=== PATIENT | female | born 1945 | race Caucasian/White ===

== ENCOUNTER 2017-05-24 19:59 | Inpatient (IN) | payer MEDICARE, OTHER ==
[~2017-05-24] VITALS: Ht 167.6 cm; Wt 92.3 kg
--- NOTE | ~2017-05-24 | PR ---
[place], [place] PROGRESS NOTE NAME: ZAHIDA MCKEON UNIT #: [id number] ROOM: 519 DOCTOR: SHAYLA BAER MD BIRTHDATE: [birth year] DOS: 05/26/2017 CARDIOLOGY PROGRESS NOTE. SUBJECTIVE: The patient was seen in the Cardiology Department today 05/26/2017 prior to her stress test. She is a 71-year-old woman without any previous history of heart disease who noted a rapid heart rate while shopping at [employer]. She stated that she felt weak, dyspneic and lightheaded, but did not have any chest pain or syncope. The symptoms lasted several hours and therefore, she came to the Emergency Room. Her initial electrocardiogram showed SVT in a pattern consistent with AV oswaldo reentrant tachycardia. She did convert spontaneously to sinus rhythm. Troponin levels were minimally elevated suggesting myocardial injury, probably due to the tachycardia and demand ischemia. The patient denies any chest discomfort at this time and feels back to her baseline. PHYSICAL EXAMINATION: VITAL SIGNS: Today, her pulse is 66 and regular, blood pressure is 131/96. She is afebrile. NECK: Supple. She has no jugular distention. Carotids are full. She has no neck or supraclavicular masses and no thyromegaly. LUNGS: Respirations are unlabored. Her chest is clear to auscultation and percussion. She has no presacral edema or chest wall tenderness. HEART: Has a regular rhythm. She has a fourth heart sound, but no third heart sound or murmur. The PMI is not displaced. ABDOMEN: Benign. EXTREMITIES: Showed no edema. LABORATORY DATA: Her electrocardiogram today shows sinus rhythm with nonspecific T-wave flattening and lateral T-wave inversions. IMPRESSION: 1. 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 2. Mild elevation in troponin. PLAN: The patient will undergo echocardiography for wall motion and valve function today along with a pharmacologic stress test. Further recommendations will depend upon the results of these studies. She will be maintained on beta blockers for the time being and follow up with us in the office if her stress and echo are normal. We will plan on referring her to electrophysiology if her episodes of SVT are recurrent. We thank the hospitalist physicians for asking our advice regarding her care. [place], [place] PROGRESS NOTE NAME: ZAHIDA MCKEON UNIT #: [id number] ROOM: 519 DOCTOR: SHAYLA BAER MD BIRTHDATE: [birth year] SHAYLA BAER MD CM:PNTRANS 1114 1150 SHAYLA BAER MD 05/26/17 1150 interface
[~2017-05-24 19:59] MED LIST: ZOFRAN ODT4 MG SL
[2017-05-24 20:11] VITALS: BP 142/96
[2017-05-24 20:17] LABS: BASO % 0.4 % (0.0-1.0); EOS # 0.1 10*3/uL (0.0-0.4); EOS % 1.4 % (1.0-4.0); HEMATOCRIT 45.3 % (37.0-47.0); HEMOGLOBIN 15.2 g/dl (12.0-16.0); LYMPH # 2.8 10*3/uL (1.3-4.4); LYMPH % 27.5 % (27.0-41.0); MEAN CELL VOLUME 93.4 fl (81.0-99.0); MEAN CORPUSCULAR HGB 31.3 pg (27.0-31.0); MEAN CORPUSCULAR HGB CONC 33.6 g/dl (33.0-37.0); MEAN PLATELET VOLUME 9.1 fl (9.6-12.3); MONO # 1.3 10*3/uL (0.1-1.0); NEUT # 5.8 10*3/uL (2.3-7.9); NEUT % 57.4 % (47.0-73.0); PLATELET COUNT AUTOMATED 283 10*3/uL (130-400); RED BLOOD COUNT 4.85 10*6/uL (4.10-5.10); RED CELL DISTRI WIDTH 13.2 % (0-14.5); WHITE BLOOD COUNT 10.1 10*3/uL (4.8-10.8)
[2017-05-24 20:27] VITALS: BP 144/101
[2017-05-24 20:28] LABS: ACT PARTIAL THROMBO TIME 25.5 SECONDS (20.8-31.5)
[2017-05-24 20:33] LABS: ALBUMIN 3.7 gm/dl (3.1-4.5); ALKALINE PHOSPHATASE 91 U/L (45-117); BUN 11 mg/dl (7-24); CHLORIDE 100 mmol/L (98-107); CREATININE 1.04 mg/dL (0.55-1.02); POTASSIUM 3.6 mmol/L (3.5-5.1); SGOT/AST 19 IU/L (3-35); SGPT/ALT 24 U/L (12-78); SODIUM 137 mmol/L (136-145); TOTAL PROTEIN 8.1 gm/dL (6.4-8.2)
[2017-05-24 20:36] LABS: TROPONIN I 0.153 ng/ml (<0.045)
[2017-05-24 20:42] VITALS: BP 128/80
[2017-05-24 21:01] VITALS: BP 138/82
[2017-05-24 21:21] VITALS: BP 139/84
[2017-05-24 21:50] VITALS: BP 150/85
[2017-05-24] MEDS ORDERED: PRILOSEC20 M1 PO (22:10)
[2017-05-24] MEDS ORDERED: LIPITOR20 MG PO (22:11)
[2017-05-24] MEDS ORDERED: VITAMIN D31000 UNI1 PO (22:12)
[2017-05-24] MEDS ORDERED: CELEBREX100 MG PO (22:13)
[2017-05-24] MEDS ORDERED: VITAMIN B-125000 MC1 PO (22:13)
[2017-05-24] MEDS ORDERED: VALSARTAN-HCTZ1 EACH PO (22:14)
[2017-05-24] MEDS ORDERED: ASPIRIN ADULT L81 M1 PO (22:15)
--- NOTE | 2017-05-24 22:15 | NUR ---
CONSULT CALLED TO DR GR.
[2017-05-24] MEDS ORDERED: NORVASC5 MG PO (22:16)
[2017-05-24] MEDS ORDERED: AMITRIPTYLINE50 MG PO (22:16)
[2017-05-24] MEDS ORDERED: TRAZODONE50 MG PO (22:17)
[2017-05-24] MEDS ORDERED: ATIVAN1 MG PO (22:18)
[2017-05-24] MEDS ORDERED: PROVENTIL HFA6.7 GM INH (22:20)
[2017-05-24] MEDS ORDERED: MURO OPH (22:27)
[2017-05-24] MEDS ORDERED: [UNRECOGNIZED DRUG - OTHER] OPH (22:27)
--- NOTE | 2017-05-24 23:25 | NUR ---
CRITICAL TROPONIN OF 0.[address] GR. STATES "I WILL SEE HER IN AM, CALL IF YOU NEED ME."
[2017-05-25] VITALS (9 sets, daily range): BP systolic 110–134; BP diastolic 54–88
--- NOTE | 2017-05-25 00:10 | NUR ---
A 71, admitted to , under the services of BETO Mathew DO with a diagnosis of A FIB WITH SVT AND RVR. Chief complaint is HEART PALPITATIONS. Patient arrived via stretcher from ER. Monitor applied. Initial assessment completed. Vital signs taken and recorded. BETO MATHEW DO notified of admission to the unit. Orders received. See assessment for past medical history, medications and allergies. Patient and/or family oriented to unit. [facility] visitation policy reviewed. Clothing/patient valuable form completed. JUAN HERNANDEZ
--- NOTE | 2017-05-25 03:10 | NUR ---
DR GR ANSWERING SERVICE CALLED TO REPORT CRITICAL TROPONIN OF 0.161. TROPONINS ARE TRENDING DOWN.
[2017-05-25 06:05] LABS: BASO # 0.1 10*3/uL (0.0-0.1); BASO % 0.7 % (0.0-1.0); EOS # 0.2 10*3/uL (0.0-0.4); EOS % 2.1 % (1.0-4.0); HEMATOCRIT 42.7 % (37.0-47.0); HEMOGLOBIN 14.5 g/dl (12.0-16.0); LYMPH # 2.2 10*3/uL (1.3-4.4); LYMPH % 28.9 % (27.0-41.0); MEAN CELL VOLUME 94.3 fl (81.0-99.0); MEAN PLATELET VOLUME 9.2 fl (9.6-12.3); MONO % 13.7 % (3.0-9.0); NEUT # 4.1 10*3/uL (2.3-7.9); NEUT % 54.5 % (47.0-73.0); PLATELET COUNT AUTOMATED 261 10*3/uL (130-400); RED BLOOD COUNT 4.53 10*6/uL (4.10-5.10); RED CELL DISTRI WIDTH 13.2 % (0-14.5); WHITE BLOOD COUNT 7.6 10*3/uL (4.8-10.8)
[2017-05-25 06:22] LABS: ALBUMIN 3.2 gm/dl (3.1-4.5); ALKALINE PHOSPHATASE 67 U/L (45-117); BUN 11 mg/dl (7-24); CHLORIDE 106 mmol/L (98-107); CHOLESTEROL 153 mg/dL (<200); CPK 78 U/L (26-192); CREATININE 0.95 mg/dL (0.55-1.02); HDL CHOLESTEROL 56 mg/dl (40-60); LDH 157 U/L (84-246); LDL CHOLESTEROL 66 mg/dL (9-159); POTASSIUM 3.8 mmol/L (3.5-5.1); SGOT/AST 18 IU/L (3-35); SGPT/ALT 20 U/L (12-78); SODIUM 142 mmol/L (136-145); TOTAL PROTEIN 6.7 gm/dL (6.4-8.2); TRIGLYCERIDES 157 mg/dl (<150); VLDL CHOLESTEROL 31 mg/dL (6-40)
--- NOTE | 2017-05-25 06:36 | NUR ---
CRITICAL TROPONIN CALLED TO DR GROVE ANSWERING SERVICE. LEVEL TRENDING DOWN 0.14.
--- NOTE | 2017-05-25 06:52 | NUR ---
PT CONVERTED TO NORMAL SINUS, HR 67 BPM.
--- NOTE | 2017-05-25 07:37 | NUR ---
PT CONVERTED TO NORMAL SINUS, CARDIZEM DRIP DISCONTINUED.
--- NOTE | 2017-05-25 08:00 | NUR ---
CARDIZEM WAS DISCONTINUED AT O7OO D/T PATIENT CARDIOVERTING AT 0652. PATIENT ALERT AND ORIENTED. LUNGS CLEAR BUT DIMINISHED. RESP. THERAPY PLACED PATIENT ON O2 IN AM, WAS REPORTED THAT SPO2 HAD DROPPED TO 89%. PATIENT WITH HARSH COUGH, STATES IS A SMOKER.
--- NOTE | 2017-05-25 16:26 | NUR ---
PATIENT RESTING WITH NO DISTRESS.
--- NOTE | 2017-05-25 19:30 | NUR ---
PT AWAKE IN BED. NO C/O VOICED AT THIS TIME. CALL LIGHT IN REACH.
[2017-05-26] VITALS: BP 112/66
--- NOTE | 2017-05-26 06:25 | NUR ---
24 HR chart check completed.
[2017-05-26 06:52] LABS: BUN 12 mg/dl (7-24); CHLORIDE 105 mmol/L (98-107); CREATININE 1.07 mg/dL (0.55-1.02); POTASSIUM 4.1 mmol/L (3.5-5.1); SODIUM 140 mmol/L (136-145)
[2017-05-26 08:00] VITALS: BP 131/96
--- NOTE | 2017-05-26 08:40 | NUR ---
PATIENT GOING TO XRAY FOR LEXISCAN. PATIENT HAS BEEN NPO. VOICES NO COMPLAINTS, DENIES CHEST PAIN, DENIES SHORTNESS OF BREATH.
--- NOTE | 2017-05-26 08:40 | NUR ---
PATIENT LYING FLAT IN BED THIS AM, SPO2 89%, AFTER SITTING UP SPO2 INCREASED TO 91% ON ROOM AIR. PATIENT WITHOUT COMPLAINTS, NO SHORTNESS OF BREATH VOICED. ALERT AND ORIENTED.
--- NOTE | 2017-05-26 09:00 | NUR ---
Acquisition Professional in to talk to patient. Patient states lives at home with family. There are few steps in the home. Physician: sammy aguirre Pharmacy: [facility] services: none Patient's level of ADLs: INDEPENDENT Patient has working utilities: all working DME: none Follow-up physician's appointment after d/c: will be made by hospitalist nurse director upon discharge Does patient want to access PORTAL?: no Discharge plan discussed with patient, patient lives at home with family, she states she is independent in adls and ambulation, patient states she will be going home when able and denies any home needs. AMANDA CHAVARRIA
--- NOTE | 2017-05-26 10:59 | NUR ---
[facility] NOT AVAILABLE FOR ECHO. SHE IS OFF THE FLOOR FOR OTHER TESTING.
--- NOTE | 2017-05-26 11:15 | NUR ---
INFORMED CONSENT SIGNED FOR LEXISCAN STRESS TEST WITH DR. BAER. RESTING EKG NSR, HR 73, BP 132/80. PULSE OX 91% AND BREATH SOUNDS DEMINISHED BILATERALLY. COMPLETED ONE MINUTE OF LEXISCAN PROTOCOL RECEIVING LEXISCAN 0.4MG OVER 10 SECONDS. NO ARRHYTHMIAS OR ST CHANGES NOTED. PT C/O NAUSEA. LAST RECOVERY HR 91, BP 140/72. WAITING NUCLEAR SCANNING IN STABLE CONDITION.
[2017-05-26 12:00] VITALS: BP 146/74
--- NOTE | 2017-05-26 13:29 | NUR ---
RETURNED TO THE FLOOR AT 1250. NO PROBLEMS NOTED. VOICES NO PROBLEMS.
[2017-05-26 16:00] VITALS: BP 128/61
[2017-05-26] MEDS ORDERED: METOPROLOL SUCC25 M2 PO (16:33)
[2017-05-26] MEDS ORDERED: XARE20MG PO (17:29)
--- NOTE | 2017-05-26 18:13 | NUR ---
Discharge instructions reviewed with patient/family. Patient receptive and verbalizes understanding. Follow-up care arranged. Written instructions given to patient/family. Removed telementry pack. Removed iv site and bandaged. Patient ambulated off floor with son. MARY GR
== END 2017-05-26 18:13 | disposition home or self-care (01) | DRG 309 ==
LOC: ED 19:59 → EDHOLD 20:53 → 5E 20:53
PROVIDERS: Emergency Medicine Emergency Medical Services; Internal Medicine; ADMIT Internal Medicine
PROC: 3E073KZ Introduction of Other Diagnostic Substance into Coronary Artery, Percutaneous Approach (ICD-10-PCS; principal; 2017-05-26)
PROC: 4A02XM4 Measurement of Cardiac Total Activity, External Approach (ICD-10-PCS; principal; 2017-05-26)
DX: I48.91 Unspecified atrial fibrillation (principal); E44.1 Mild protein-calorie malnutrition; E11.9 Type 2 diabetes mellitus without complications; F41.9 Anxiety disorder, unspecified; F32.9 Major depressive disorder, single episode, unspecified; I47.1 Supraventricular tachycardia; E66.09 Other obesity due to excess calories; E78.5 Hyperlipidemia, unspecified; I10 Essential (primary) hypertension; Z72.0 Tobacco use; Z71.6 Tobacco abuse counseling; Z98.51 Tubal ligation status; Z80.9 Family history of malignant neoplasm, unspecified; Z81.1 Family history of alcohol abuse and dependence; Z79.82 Long term (current) use of aspirin; Z79.899 Other long term (current) drug therapy; Z68.32 Body mass index [BMI] 32.0-32.9, adult

== ENCOUNTER 2017-06-21 13:56 | Inpatient (IN) | payer MEDICARE, OTHER ==
[~2017-06-21] VITALS: Ht 165.1 cm; Wt 94.9 kg
--- NOTE | ~2017-06-21 | O ---
[place], [place] OPERATIVE NOTE NAME: ZAHIDA MCKEON UNIT #: [id number] ROOM: 407 DOCTOR: MAURICE SWIFTTREMAINE BIRTHDATE: [birth year] DOS: INDICATIONS: A 72-year-old patient who has presented with chief complaint of epigastric distress, shortness of breath, aggressive smoker. She had a chest x-ray done, was demonstrating bilateral pleural effusion, prominence of interstitial pattern. Her lactic acid 1.1. CBC: H and H of 11 and 35. INR 1.1. Comprehensive metabolic panel, electrolytes balanced. Lipase 71. BNP of 1500+. Troponin within normal limits. Comprehensive metabolic panel again reassessed. The patient has had a CT scan done with the concern about thickening of the distal esophagus. I have been asked for ____. PAST MEDICAL HISTORY: Anxiety, atrial fibrillation, diabetes mellitus, heaviest smoker, dependency on nicotine, depression, obesity, SVT. PAST SURGICAL HISTORY: Tubal ligation. SOCIAL HISTORY: Heavy smoker. Nonalcohol consumer. FAMILY HISTORY: Noncontributory. ALLERGIES: To no known medication. MEDICATIONS: List has been reviewed. PROCEDURE: Today's procedure part of investigation is panendoscopy plus biopsy. PREMEDICATION: Versed and Diprivan. SCOPE: Olympus forward-viewing gastroscope Q10 video. REPORT: After putting the patient in the left lateral position and after application of lubricant to the scope, the scope was introduced. Thereafter, under direct visualization, I advanced through the length of esophagus without difficulty. Gastric pouch was entered. Gastritis was seen. Small hiatal hernia was noticed. There was no acute pathology at distal esophagus. Gastric pouch was entered. Gastritis seen. Antrum was biopsied, ruling out H. pylori. Duodenal bulb, second and third part within normal limits. The patient extubated, tolerated procedure well. IMPRESSION: Hiatal hernia, gastritis, status post biopsy. PLAN AND DISCUSSION: Awaiting H. pylori results. This patient benefits from chronic PPI management. Hopefully, her H. pylori is going to be negative and at that stage chronic suppression with 20 mg of omeprazole daily would be sufficient. Thank you very much indeed. [place], [place] OPERATIVE NOTE NAME: ZAHIDA MCKEON UNIT #: [id number] ROOM: 407 DOCTOR: TREMAINE RICHARDS MD BIRTHDATE: [birth year] TREMAINE RICHARDS MD CM:OPRECORD:OPERATIVE NOTE [id number] TREMAINE RICHARDS MD 06/25/17 1607 interface
--- NOTE | ~2017-06-21 | EKG ---
[place], [place] ELECTROCARDIOGRAM REPORT NAME: ZAHIDA MCKEON UNIT #: [id number] ROOM: 407 DOCTOR: TEE KENNEY MD BIRTHDATE: [birth year] DOS: 06/21/2017 TIME: 1435 hours. Sinus bradycardia at 55 beats per minute. Flattened T-waves in chest leads. An abnormal ECG. No previous tracing is available for comparison. TEE KENNEY MD CM:EKGRPT:ELECTROCARDIOGRAM REPORT 1706 21 TEE KENNEY MD
--- NOTE | ~2017-06-21 | PR ---
[place], [place] PROGRESS NOTE NAME: ZAHIDA MCKEON UNIT #: [id number] ROOM: 407 DOCTOR: PAULA WALTERS MD,JULIA BIRTHDATE: [birth year] DOS: 06/26/2017 SUBJECTIVE: The patient was seen and examined on 06/26/2017. She is comfortably resting in the bed. She denies any symptoms of chest pain or any abdominal pain. She denies any symptoms of coughing or any sputum expectoration. OBJECTIVE: VITAL SIGNS: For the patient which was recorded showed the temperature noted normal, respiratory rate of 16 morning. Heart rate 62, blood pressure 149/65. Pulse oxygen saturation of the patient was noted on room air as 92% saturation to 98% on 2 L nasal cannula. HEENT: Examination shows no acute change. NECK: Supple. CARDIOVASCULAR: S1, S2 audible. LUNGS: The patient was noted without any wheezing or crackles at this time. Resolution of the crackles was noted that was present previously. LABORATORY DATA: The patient has an EGD completed, which shows evidence of hiatal hernia. There was no mass lesion or other abnormality described in the esophagus. IMPRESSION: The patient who has been currently noted with reduction of progressive resolution of the acute symptom noted with resolving chronic obstructive pulmonary disease, acute tracheobronchitis ____ abnormality in the thoracic area. Possibility of lymph node enlargement need to be further assessed with the PET scan. Await biopsy, which was taken by Dr. Lucio for the patient of the stomach. PLAN OF TREATMENT: The patient could be discharged home today and recommended to be followed up in the office for further assessment if she decides to do so. JULIA MITCHELL MD CM:PNTRANS 1109 [id number] JULIA WALTERS MD 06/27/17 0435 interface
--- NOTE | ~2017-06-21 | CON ---
[place], [place] REPORT OF CONSULTATION NAME: ZAHIDA MCKEON UNIT #: [id number] ROOM: 407 DOCTOR: JULIA MAST MD BIRTHDATE: [birth year] DOS: 06/24/2017 The patient's consultation was requested by hospitalist services for assessment of symptom of shortness of breath and others. HISTORY OF PRESENT ILLNESS: The patient is a 72-year-old white female who has been admitted to the hospitalist services on 06/21/2017. The patient presented to the Emergency Room, she has reported symptoms of shortness breath, which has been generally noted to gradually worsen in the past 1 week. The symptoms of shortness of breath occurring with moderate exertion activities. Improves with rest. She also developed symptoms of coughing with small amount of sputum expectoration and wheezing intermittently. She denies symptoms of chest pain. Denies symptoms of hemoptysis. The patient has been admitted to the hospital noted with atrial fibrillation with rapid ventricular response as well on admission, which has been treated. REVIEW OF SYSTEMS: CONSTITUTIONAL: Fatigue and tiredness noted without symptoms of fever or chills. EYES: Denies any burning, redness, or tenderness. EARS, NOSE, THROAT SYMPTOMS: No sore throat, hoarseness, otalgia, postnasal drainage. CARDIOVASCULAR: Denies anginal pain, edema or pain of the lower extremities. GASTROINTESTINAL: Denies dysphagia, nausea, vomiting, diarrhea, abdominal pain, hematemesis, melena, or hematochezia. SKIN: Denies any lesions or rashes. CENTRAL NERVOUS SYSTEM: Denies dizziness, headache, diplopia, syncopal episodes or any focal neurologic deficit. The remaining systems were reviewed with the patient, they were noted all negative. PAST MEDICAL HISTORY: The patient was noted with history of: 1. COPD. 2. Atrial fibrillation, which is noted paroxysmal. 3. History of depression. 4. History of SVT. 5. Hyperlipidemia. 6. Essential hypertension. 7. Obesity. 8. Type 2 diabetes mellitus. PAST SURGICAL HISTORY: Reported history of tubal ligation. SOCIAL HISTORY: The patient is . She has 2 children noted. Active tobacco use since teenager, 1 pack of cigarettes per day until hospitalization. Denies any occupational related pulmonary exposure. FAMILY HISTORY: Father with complication of unknown cancer, he was 69 years old. Mother of ____ complication, 56 years old related to chronic alcoholism. [place], [place] REPORT OF CONSULTATION NAME: ZAHIDA MCKEON UNIT #: [id number] ROOM: 407 DOCTOR: JULIA MAST MD BIRTHDATE: [birth year] CURRENT HOME MEDICATIONS: Which were listed on this admission were noted as use of: 1. Xarelto 20 mg daily. 2. Metoprolol succinate 25 mg daily. 3. Vitamin D 1000 international units daily. 4. Aspirin 81 mg p.o. daily. 5. Omeprazole 20 mg daily. 6. Trazodone 50 mg at bedtime. 7. Amitriptyline 50 mg at bedtime. 8. Lipitor 20 mg at bedtime. 9. Solu-Medrol 40 mg q.8 hours. 10. Mucinex 1200 mg p.o. b.i.d. 11. Nicotine replacement patch 21 picogram apply to the skin daily. 12. DuoNeb q.4 hours. 13. IV Levaquin. 14. Other p.r.n. medications administered as well. DRUG ALLERGIES HISTORY: Noted no known drug allergies. PHYSICAL EXAMINATION: GENERAL: This is a 72-year-old female currently noted awake and alert without any distress, moderate nonproductive cough noted at time of the assessment. VITAL SIGNS: Height of 5 feet 6 inches, weight 209 pounds, BMI 34.8. Normal temperature since admission, respiratory rate 18-16, heart rate 60-76, blood pressure 142/67 to 134/61. Intake for the patient is 1000 mL over 1700, negative for 6 and 40 mL. Pulse ox saturation on room air 91-92% saturation recorded on 2 liters nasal cannula oxygen supplementation. HEENT: Moderate obesity. Head was atraumatic. Eyes nonicterus. Decreased posterior pharyngeal space with high tongue base and crowding of soft tissue structures. ABDOMEN: Soft, nontender. Bowel sounds present. CENTRAL NERVOUS SYSTEM: The patient was noted without any gross focal deficit. EXTREMITIES: The patient's cranial nerves 2-12 intact. MUSCULOSKELETAL: Does not show any acute deformities. SKIN: Showed no lesions or rashes. LABORATORY DATA: CBC on admission of 06/21/2017, hemoglobin 11.6, hematocrit 35.0. CBC normal. Lactic acid 1.1 on 06/21/2017. PT/PTT on 06/21/2017 were normal. CMP of the patient 06/21/2017, normal BUN and creatinine noted and other labs. Lipase was 71. Troponin was noted as normal. CBC on 06/22/2017, mild anemia, otherwise remains normal. CMP: Glucose elevated at 197, normal BUN and creatinine. The blood culture from 06/21/2017 was noted without any bacterial growth. CBC of 06/24/2017; WBC count 12.2, hemoglobin 11.3, hematocrit 34.4, platelet count 314,000 with 82% segmented neutrophils with noted differential. BMP: BUN 12, creatinine 1.09, glucose 152. Remaining electrolytes were normal. Review of the radiology data for this patient personally done from the faxed images. The chest x-ray of 06/21/2017 shows a small area of atelectasis in the [place], [place] REPORT OF CONSULTATION NAME: ZAHIDA MCKEON UNIT #: [id number] ROOM: [facility] DOCTOR: PAULA WALTERS MD,[facility] BIRTHDATE: [birth year] right lower lobe. Remaining lungs were noted clear with hyperinflation. Chest x-ray ____ repeated shows similar finding. CT scan of 06/23/2017 without contrast for review shows area of atelectasis was noted, most marked in the right lower lobe. There was no mediastinal lymphadenopathy noted. Irregular, soft and ____ lesions were noted in the medial portion of the diaphragm abutting the descending aorta as well as the vertebral body. Size described at 1.7 x 1.6 cm. Some thickening of the lower portion of the esophagus was also noted with possibility of malignant process with lymph node enlargement could be considered. IMPRESSION: 1. The patient who has been currently admitted to the hospital noted with ongoing acute exacerbation of chronic obstructive pulmonary disease, acute tracheobronchitis with area of atelectasis related to some mucus infection was suspected. 2. History of chronic obesity, suspicion of obstructive sleep apnea disorder. 3. Mild leucocytosis related to the use of corticosteroids. 4. Rule out any malignant process in lower portion of the esophagus with the direct endoscopic examination. 5. History of chronic nicotine dependence as well. 6. Very mild anemia, most likely chronic disease. PLAN OF TREATMENT: Continuation of current Mucinex, bronchodilators, oxygen supplementation and the flutter valve. The symptom remains persistent and does not resolve, certainly therapeutic bronchoscopy will be considered. Strong recommendation to get the GI consultation for the direct visualization of the esophagus to rule out any malignancy. If examined and noted to be negative, certainly PET scan needs to be done as an outpatient for further assessment. Other supportive plan of therapy care and management as ongoing. Continue bronchodilators with increased frequency every 4 hours. Thanks for allowing me to participate in the care of this patient. JULIA MITCHELL MD CM:CONSTR:REPORT OF CONSULTATION 1205 06/24/17 1621 interface
--- NOTE | ~2017-06-21 | PR ---
[place], [place] PROGRESS NOTE NAME: ZAHIDA MCKEON UNIT #: [id number] ROOM: 407 DOCTOR: JULIA MAST MD BIRTHDATE: [birth year] DOS: 06/25/2017 SUBJECTIVE: She has been comfortably resting on the bed with improvement in shortness breath was noted. Not used the BiPAP. The oxygen supplementation used by the patient. Symptoms of chest pain, stating that she has ambulated with physical therapy yesterday. OBJECTIVE: VITAL SIGNS: The patient this morning showed normal temperature, respiratory rate 20, heart rate of 83, blood pressure 163/83. Pulse oxygen saturation on room air was recorded 92% saturation. HEENT: No acute change. NECK: Supple. CARDIOVASCULAR: S1, S2 audible. LUNGS: Noted with questionable crackles, no wheezing. ABDOMEN: Soft, nontender. LABORATORY DATA: CBC: Mild anemia, otherwise normal CBC. BMP: BUN of 24, creatinine 1.06. IMPRESSION: 1. The patient was currently noted with improvement in acute exacerbation of COPD and acute tracheobronchitis progressively cough has been noted for this patient, which is mild to moderate with reduction noted gradually. 2. Abnormal ____ which has been noted for the patient lymph node or other in the lower esophagus area as well as in the midline. PLAN OF TREATMENT: Continuation of the patient on current therapy from the pulmonary standpoint, no changes in treatment need to be made. The patient has been improving current therapy. GI consultation. The patient has been already ordered for the patient for the EGD to rule out any malignant process of the lower portion of the esophagus. Outpatient PET scan would be considered for the patient to assess the current nodular density noted in the midline for the patient in the left descending aorta, periaortic area on the right side. [place], [place] PROGRESS NOTE NAME: ZAHIDA MCKEON UNIT #: [id number] ROOM: 407 DOCTOR: JULIA MAST MD BIRTHDATE: [birth year] JULIA MITCHELL MD CM:PNTRANS 1112 JULIA WALTERS MD 06/25/178 interface
[~2017-06-21 13:56] MED LIST changes: +AMITRIPTYLINE50 MG PO; +ASPIRIN ADULT L81 M1 PO; +ATIVAN1 MG PO; +CELEBREX100 MG PO; +LIPITOR20 MG PO; +METOPROLOL SUCC25 M2 PO; +MURO OPH; +NORVASC5 MG PO; +PRILOSEC20 M1 PO; +PROVENTIL HFA6.7 GM INH; +TRAZODONE50 MG PO; +VALSARTAN-HCTZ1 EACH PO; +VITAMIN B-125000 MC1 PO; +VITAMIN D31000 UNI1 PO; +XARE20MG PO; +[UNRECOGNIZED DRUG - OTHER] OPH
[2017-06-21 14:12] VITALS: BP 172/135
[2017-06-21 14:34] LABS: BASO % 0.5 % (0.0-1.0); EOS # 0.1 10*3/uL (0.0-0.4); EOS % 1.6 % (1.0-4.0); HEMOGLOBIN 11.6 g/dl (12.0-16.0); LYMPH # 1.6 10*3/uL (1.3-4.4); LYMPH % 27.9 % (27.0-41.0); MEAN CELL VOLUME 96.4 fl (81.0-99.0); MEAN CORPUSCULAR HGB CONC 33.1 g/dl (33.0-37.0); MEAN PLATELET VOLUME 8.8 fl (9.6-12.3); MONO # 0.7 10*3/uL (0.1-1.0); MONO % 12.6 % (3.0-9.0); NEUT # 3.3 10*3/uL (2.3-7.9); PLATELET COUNT AUTOMATED 244 10*3/uL (130-400); RED BLOOD COUNT 3.63 10*6/uL (4.10-5.10); RED CELL DISTRI WIDTH 12.8 % (0-14.5); WHITE BLOOD COUNT 5.7 10*3/uL (4.8-10.8)
[2017-06-21 14:35] VITALS: BP 162/79
[2017-06-21 14:45] LABS: ACT PARTIAL THROMBO TIME 29.5 SECONDS (20.8-31.5); INTERNATIONAL NORM RATIO 1.1 (2.0-3.5)
[2017-06-21 14:49] LABS: ALBUMIN 3.1 gm/dl (3.1-4.5); ALKALINE PHOSPHATASE 79 U/L (45-117); BUN 11 mg/dl (7-24); CHLORIDE 103 mmol/L (98-107); CREATININE 0.98 mg/dL (0.55-1.02); LIPASE 71 U/L (73-393); MAGNESIUM 1.8 mg/dL (1.5-2.1); POTASSIUM 4.3 mmol/L (3.5-5.1); SGOT/AST 20 IU/L (3-35); SGPT/ALT 34 U/L (12-78); SODIUM 138 mmol/L (136-145); TOTAL PROTEIN 6.8 gm/dL (6.4-8.2)
[2017-06-21 14:50] LABS: TROPONIN I < 0.015 ng/ml (<0.045)
[2017-06-21 15:10] VITALS: BP 160/66
[2017-06-21 16:25] VITALS: BP 178/73
[2017-06-21 17:08] VITALS: BP 169/87
--- NOTE | 2017-06-21 17:12 | NUR ---
CCAA 72, admitted to , under the services of ELMO Trujillo DO with a diagnosis of PNEUMONIA. Chief complaint is SOB. Patient arrived via bed from ER. Monitor applied. Initial assessment completed. Vital signs taken and recorded. ELMO TRUJILLO DO notified of admission to the unit. Orders received. See assessment for past medical history, medications and allergies. Patient and/or family oriented to unit. [facility] visitation policy reviewed. Clothing/patient valuable form completed. RAMBO SKINNER
--- NOTE | 2017-06-21 17:29 | NUR ---
MEDICATION LIST UPDATED FROM PATIENT RX BOTTLES AND PHARMACY LIST. NOTIFIED PHYSICIAN MEDICATION LIST UPDATED
[2017-06-21 18:05] LABS: BILIRUBIN NEGATIVE (NEGATIVE); BLOOD NEGATIVE (NEGATIVE); CLARITY CLEAR (CLEAR); COLOR YELLOW (YELLOW); GLUCOSE NEGATIVE (NEGATIVE); KETONE NEGATIVE (NEGATIVE); LEUKO ESTERASE NEGATIVE (NEGATIVE); NITRITE NEGATIVE (NEGATIVE); PH 5.5 (5.0-9.0); SPECIFIC GRAVITY <= 1.005 (1.005-1.030); UROBILINOGEN 0.2 E.U./dl (0.2-1.0)
[2017-06-21 18:11] LABS: BACTERIA TRACE; RBC 0-2 rbc/hpf (0-2); WBC 0-2 wbc/hpf (0-5)
[2017-06-21 18:37] LABS: TROPONIN I < 0.015 ng/ml (<0.045)
--- NOTE | 2017-06-21 18:43 | NUR ---
SPOKE TO DR. VANEGAS AND HE STATED TO HOLD SCHEDULED IV LASIX DOSE SINCE PATIENT ALREADY RECEIVED A ONE TIME 20MG DOSE RECENTLY.
[2017-06-21 20:00] VITALS: BP 162/86
[2017-06-22] VITALS: BP 140/68
--- NOTE | 2017-06-22 03:15 | NUR ---
MEDICATED WITH PRN TYLENOL ORDERED FOR C/O A HEADACHE.
--- NOTE | 2017-06-22 04:20 | NUR ---
EARLIER TYLENOL EFFECTIVE PER PATIENT. RESTING COMFORTABLY IN BED. RESPIRATIONS EASY/REGULAR. NO SXS OF DISTRESS. CALL LIGHT IS IN REACH.
[2017-06-22 06:01] LABS: BASO % 0.2 % (0.0-1.0); HEMATOCRIT 32.3 % (37.0-47.0); HEMOGLOBIN 10.8 g/dl (12.0-16.0); LYMPH # 0.7 10*3/uL (1.3-4.4); LYMPH % 11.6 % (27.0-41.0); MEAN CELL VOLUME 95.6 fl (81.0-99.0); MEAN CORPUSCULAR HGB CONC 33.4 g/dl (33.0-37.0); MEAN PLATELET VOLUME 9.5 fl (9.6-12.3); MONO # 0.2 10*3/uL (0.1-1.0); MONO % 2.5 % (3.0-9.0); NEUT # 5.4 10*3/uL (2.3-7.9); NEUT % 84.9 % (47.0-73.0); PLATELET COUNT AUTOMATED 238 10*3/uL (130-400); RED BLOOD COUNT 3.38 10*6/uL (4.10-5.10); RED CELL DISTRI WIDTH 12.7 % (0-14.5); WHITE BLOOD COUNT 6.3 10*3/uL (4.8-10.8)
[2017-06-22 06:25] LABS: ALBUMIN 2.9 gm/dl (3.1-4.5); ALKALINE PHOSPHATASE 64 U/L (45-117); BUN 17 mg/dl (7-24); CHLORIDE 104 mmol/L (98-107); CHOLESTEROL 119 mg/dL (<200); CREATININE 1.04 mg/dL (0.55-1.02); HDL CHOLESTEROL 56 mg/dl (40-60); LDL CHOLESTEROL 55 mg/dL (9-159); MAGNESIUM 1.7 mg/dL (1.5-2.1); PHOSPHOROUS 3.4 mg/dL (2.5-4.9); SGOT/AST 15 IU/L (3-35); SGPT/ALT 27 U/L (12-78); SODIUM 140 mmol/L (136-145); TOTAL PROTEIN 6.2 gm/dL (6.4-8.2); TRIGLYCERIDES 39 mg/dl (<150); VLDL CHOLESTEROL 8 mg/dL (6-40)
[2017-06-22 06:27] LABS: INTERNATIONAL NORM RATIO 1.1 (2.0-3.5)
[2017-06-22 08:00] VITALS: BP 160/73
--- NOTE | 2017-06-22 09:53 | NUR ---
talkled to pharmecy about eye oitment that was due at 1000 today, but pharmacy made aware the fact that it wont be here until tomorrow. will continue to monitor pt.
[2017-06-22 12:00] VITALS: BP 154/68
[2017-06-22 16:00] VITALS: BP 151/72
--- NOTE | 2017-06-22 19:45 | NUR ---
PT. IS COMFORTABLY RESTING IN BE AT THIS PRESENT TIME WATCHING TV. HOB IS ELEVATED AND OXYGEN IS ON VIA NASAL CANNULA. CALL LIGHT IS IN REACH, SEE SHIFT ASSESSMENT.
[2017-06-22 20:00] VITALS: BP 159/84
[2017-06-23] VITALS: BP 134/61
--- NOTE | 2017-06-23 01:46 | NUR ---
24 HR chart check completed.
[2017-06-23 06:31] LABS: BASO % 0.1 % (0.0-1.0); HEMATOCRIT 35.7 % (37.0-47.0); HEMOGLOBIN 11.8 g/dl (12.0-16.0); LYMPH # 1.3 10*3/uL (1.3-4.4); LYMPH % 9.5 % (27.0-41.0); MEAN CELL VOLUME 96.2 fl (81.0-99.0); MEAN CORPUSCULAR HGB 31.8 pg (27.0-31.0); MEAN CORPUSCULAR HGB CONC 33.1 g/dl (33.0-37.0); MEAN PLATELET VOLUME 9.6 fl (9.6-12.3); MONO # 0.6 10*3/uL (0.1-1.0); MONO % 4.7 % (3.0-9.0); NEUT # 11.6 10*3/uL (2.3-7.9); PLATELET COUNT AUTOMATED 304 10*3/uL (130-400); RED BLOOD COUNT 3.71 10*6/uL (4.10-5.10); WHITE BLOOD COUNT 13.7 10*3/uL (4.8-10.8)
[2017-06-23 07:01] LABS: BUN 19 mg/dl (7-24); CHLORIDE 104 mmol/L (98-107); CREATININE 0.99 mg/dL (0.55-1.02); SODIUM 140 mmol/L (136-145)
--- NOTE | 2017-06-23 07:55 | NUR ---
Alert and oriented x3. Lungs diminished with fine rales noted to left base. Notified by Ana Rosa respiratory therapist that pt reported SOB after returning from having xray this am. Ana Rosa states that pox was 90% on RA at that time. Pt states she does feel sob with exertion. NSR on monitor with few PAC's noted, rate 70-80's. Denies pain at this time. Dry cough per pt.
[2017-06-23 08:00] VITALS: BP 150/78
--- NOTE | 2017-06-23 08:30 | NUR ---
Court Specialist in to talk to patient. Patient states lives at HOME with HER GRANDCHILDREN. There are 12 steps in the home. Physician: CHHAYA AHN Pharmacy: [facility] Home health services: NONE Patient's level of ADLs: MINIMAL ASSIST Patient has working utilities: YES DME: NONE Follow-up physician's appointment after d/c: WILL BE MADE PRIOR TO DC Does patient want to access PORTAL?: Discharge plan HOME. JOVITA SAHU
[2017-06-23 12:00] VITALS: BP 153/75
--- NOTE | 2017-06-23 13:25 | NUR ---
PHYSICAL THERAPY PT eval done on 4E this afternoon. Low complexity eval due to chart review, pt interview and results of eval. No need foound for ongoing PT at this time. Encouraged frequent walking about halls to help with lung expansion. See eval for more details. Bia Hull, PT
[2017-06-23 16:00] VITALS: BP 138/71
--- NOTE | 2017-06-23 17:50 | NUR ---
DR. MITCHELL NOTIFIED OF CONSULT.
[2017-06-23 20:00] VITALS: BP 152/67
--- NOTE | 2017-06-23 22:41 | NUR ---
PT. IS RESTING COMFORTABLY AT THIS TIME, RESPIRATIONS ARE EASY AND REGULAR. HOB ELEVATED AND CALL LIGHT IN REACH, SEE SHIFT ASSESSMENT.
[2017-06-24] VITALS: BP 143/67
[2017-06-24 06:21] LABS: BASO % 0.1 % (0.0-1.0); HEMATOCRIT 34.4 % (37.0-47.0); HEMOGLOBIN 11.3 g/dl (12.0-16.0); LYMPH # 1.4 10*3/uL (1.3-4.4); LYMPH % 11.2 % (27.0-41.0); MEAN CELL VOLUME 96.4 fl (81.0-99.0); MEAN CORPUSCULAR HGB 31.7 pg (27.0-31.0); MEAN CORPUSCULAR HGB CONC 32.8 g/dl (33.0-37.0); MEAN PLATELET VOLUME 9.5 fl (9.6-12.3); MONO # 0.6 10*3/uL (0.1-1.0); MONO % 5.3 % (3.0-9.0); NEUT # 10.1 10*3/uL (2.3-7.9); NEUT % 82.7 % (47.0-73.0); PLATELET COUNT AUTOMATED 314 10*3/uL (130-400); RED BLOOD COUNT 3.57 10*6/uL (4.10-5.10); RED CELL DISTRI WIDTH 12.9 % (0-14.5); WHITE BLOOD COUNT 12.2 10*3/uL (4.8-10.8)
[2017-06-24 06:43] LABS: CREATININE 1.09 mg/dL (0.55-1.02); POTASSIUM 4.5 mmol/L (3.5-5.1)
[2017-06-24 08:00] VITALS: BP 152/74
[2017-06-24 12:00] VITALS: BP 165/70
--- NOTE | 2017-06-24 13:00 | NUR ---
PULSE OX ON R/A AT REST 92%. B/P PRIOR TO TEST WAS 153/81, HEART RATE 72. PT. AMBULATED ON R/A, PULSE OX DECREASING TO 88%, O2 PLACED ON 2L, SAT 89% WITH AMBULATION, INCREASED O2 TO 3LM, SAT INCREASING TO 94%, HEART RATE 85. CONTINUED TO AMBULATE PT ON 3L, SAT MAINTAINING 94%. PT. TOLERATED WALK WELL. B/P POST AMBULATION WAS 164/78, HEART RATE 70. RECOVERY PULSE OX 96% AT REST ON R/A. DR. COLLINS AND RN NOTIFIED.
[2017-06-24 16:00] VITALS: BP 162/76
[2017-06-24 20:00] VITALS: BP 129/60
[2017-06-25] VITALS (9 sets, daily range): BP systolic 133–178; BP diastolic 60–98
[2017-06-25 06:18] LABS: BUN 24 mg/dl (7-24); CHLORIDE 103 mmol/L (98-107); CREATININE 1.06 mg/dL (0.55-1.02); POTASSIUM 4.5 mmol/L (3.5-5.1); SODIUM 142 mmol/L (136-145)
[2017-06-25 06:27] LABS: HEMATOCRIT 35.2 % (37.0-47.0); HEMOGLOBIN 11.2 g/dl (12.0-16.0); LYMPH # 1.3 10*3/uL (1.3-4.4); LYMPH % 13.9 % (27.0-41.0); MEAN CELL VOLUME 97.5 fl (81.0-99.0); MEAN CORPUSCULAR HGB CONC 31.8 g/dl (33.0-37.0); MEAN PLATELET VOLUME 9.9 fl (9.6-12.3); MONO # 0.8 10*3/uL (0.1-1.0); MONO % 8.2 % (3.0-9.0); NEUT # 7.1 10*3/uL (2.3-7.9); NEUT % 77.5 % (47.0-73.0); PLATELET COUNT AUTOMATED 298 10*3/uL (130-400); RED BLOOD COUNT 3.61 10*6/uL (4.10-5.10); RED CELL DISTRI WIDTH 12.9 % (0-14.5); WHITE BLOOD COUNT 9.2 10*3/uL (4.8-10.8)
--- NOTE | 2017-06-25 08:55 | NUR ---
INFORMED HOSPITALISTS RN ABOUT PT QUALIFYING FOR HOME O2 AND NEEDING ORDER.
--- NOTE | 2017-06-25 16:56 | NUR ---
CALLED AND T/O REGULAR DIET FOR PATIENT. NO OTHER COCNERNS FROM THE .
[2017-06-26] VITALS: BP 145/76
--- NOTE | 2017-06-26 02:42 | NUR ---
PATIENT RESTING IN BED WITH EYES CLOSED. NO S/S OF DISTRESS. RESPS EASY AND REGULAR. BED IN LOWEST POSITION, CALL LIGHT IN REACH
--- NOTE | 2017-06-26 02:54 | NUR ---
24 HR chart check completed.
[2017-06-26 06:51] LABS: HEMATOCRIT 35.1 % (37.0-47.0); HEMOGLOBIN 11.4 g/dl (12.0-16.0); LYMPH # 1.3 10*3/uL (1.3-4.4); LYMPH % 15.2 % (27.0-41.0); MEAN CELL VOLUME 95.6 fl (81.0-99.0); MEAN CORPUSCULAR HGB 31.1 pg (27.0-31.0); MEAN CORPUSCULAR HGB CONC 32.5 g/dl (33.0-37.0); MEAN PLATELET VOLUME 9.6 fl (9.6-12.3); MONO # 0.6 10*3/uL (0.1-1.0); MONO % 7.3 % (3.0-9.0); NEUT # 6.4 10*3/uL (2.3-7.9); NEUT % 76.8 % (47.0-73.0); PLATELET COUNT AUTOMATED 287 10*3/uL (130-400); RED BLOOD COUNT 3.67 10*6/uL (4.10-5.10); RED CELL DISTRI WIDTH 12.8 % (0-14.5); WHITE BLOOD COUNT 8.3 10*3/uL (4.8-10.8)
[2017-06-26 07:14] LABS: ALBUMIN 2.7 gm/dl (3.1-4.5); ALKALINE PHOSPHATASE 58 U/L (45-117); BUN 23 mg/dl (7-24); CHLORIDE 101 mmol/L (98-107); POTASSIUM 4.8 mmol/L (3.5-5.1); SGOT/AST 15 IU/L (3-35); SGPT/ALT 24 U/L (12-78); SODIUM 139 mmol/L (136-145)
[2017-06-26 07:15] LABS: TOTAL PROTEIN 5.9 gm/dL (6.4-8.2)
[2017-06-26 08:00] VITALS: BP 149/65
--- NOTE | 2017-06-26 08:20 | NUR ---
PT RESTING IN BED, NO DISTRESS NOTED. NO VOICED C/O, WILL MONITOR. CALL LIGHT WITHIN REACH
[2017-06-26 12:00] VITALS: BP 152/78
[2017-06-26] MEDS ORDERED: PREDNISONE10 MG PO (13:04)
--- NOTE | 2017-06-26 15:20 | NUR ---
Discharge instructions reviewed with patient/family. Patient receptive and verbalizes understanding. Follow-up care arranged. Written instructions given to patient/family. TADEO CINTRON
--- NOTE | 2017-06-26 16:40 | NUR ---
[facility] WAS CALLED FOR O2 SUPPLY. O2 WAS DELIVERED, PT. DISCHARGED.
== END 2017-06-26 15:20 | disposition home or self-care (01) | DRG 291 ==
LOC: ED 13:56 → 4E 15:55 → EDHOLD 15:55 → 4E 16:14
PROVIDERS: Family Medicine; Hospitalist; Internal Medicine; Nurse Practitioner Family; ADMIT Internal Medicine
PROC: 0DB68ZX Excision of Stomach, Via Natural or Artificial Opening Endoscopic, Diagnostic (ICD-10-PCS; principal; 2017-06-25)
DX: I11.0 Hypertensive heart disease with heart failure (principal); J96.01 Acute respiratory failure with hypoxia; J15.6 Pneumonia due to other Gram-negative bacteria; E44.0 Moderate protein-calorie malnutrition; I48.0 Paroxysmal atrial fibrillation; D64.9 Anemia, unspecified; J44.0 Chronic obstructive pulmonary disease with (acute) lower respiratory infection; J44.1 Chronic obstructive pulmonary disease with (acute) exacerbation; I50.31 Acute diastolic (congestive) heart failure; E78.5 Hyperlipidemia, unspecified; F32.9 Major depressive disorder, single episode, unspecified; E66.09 Other obesity due to excess calories; K29.70 Gastritis, unspecified, without bleeding; K20.9 Esophagitis, unspecified; F17.210 Nicotine dependence, cigarettes, uncomplicated; F41.9 Anxiety disorder, unspecified; K44.9 Diaphragmatic hernia without obstruction or gangrene; Z71.6 Tobacco abuse counseling; Z68.34 Body mass index [BMI] 34.0-34.9, adult; Z98.51 Tubal ligation status; Z81.1 Family history of alcohol abuse and dependence; Z80.9 Family history of malignant neoplasm, unspecified; Z79.82 Long term (current) use of aspirin; Z79.899 Other long term (current) drug therapy

== ENCOUNTER 2017-07-20 07:24 | Emergency (ER) | payer MEDICARE, OTHER ==
[~2017-07-20] VITALS: Ht 167.6 cm; Wt 97.1 kg
--- NOTE | ~2017-07-20 | EKG ---
[place], [place] ELECTROCARDIOGRAM REPORT NAME: ZAHIDA MCKEON UNIT #: [id number] ROOM: DOCTOR: PAULA WALTERS MD,JULIA BIRTHDATE: [birth year] DOS: 07/20/2017 ELECTROCARDIOGRAM The testing was done for the patient on 07/20/2017 at 7:51 a.m. The testing was done for assessment of shortness of breath. Normal sinus rhythm noted. Heart rate is 70 beats per minute. There were no changes of acute ischemia. There were no cardiac arrhythmias. JULIA MITCHELL MD CM:EKGRPT:ELECTROCARDIOGRAM REPORT [id number] 1514 JULIA WALTERS MD
[~2017-07-20 07:24] MED LIST changes: +PREDNISONE10 MG PO
[2017-07-20 07:48] LABS: BASO % 0.3 % (0.0-1.0); EOS # 0.1 10*3/uL (0.0-0.4); EOS % 1.9 % (1.0-4.0); HEMATOCRIT 31.5 % (37.0-47.0); HEMOGLOBIN 9.9 g/dl (12.0-16.0); LYMPH # 2.8 10*3/uL (1.3-4.4); LYMPH % 40.1 % (27.0-41.0); MEAN CELL VOLUME 96.3 fl (81.0-99.0); MEAN CORPUSCULAR HGB 30.3 pg (27.0-31.0); MEAN CORPUSCULAR HGB CONC 31.4 g/dl (33.0-37.0); MEAN PLATELET VOLUME 8.7 fl (9.6-12.3); MONO # 0.7 10*3/uL (0.1-1.0); MONO % 9.6 % (3.0-9.0); NEUT # 3.3 10*3/uL (2.3-7.9); PLATELET COUNT AUTOMATED 229 10*3/uL (130-400); RED BLOOD COUNT 3.27 10*6/uL (4.10-5.10); RED CELL DISTRI WIDTH 12.9 % (0-14.5)
[2017-07-20 08:05] LABS: ALBUMIN 2.9 gm/dl (3.1-4.5); ALKALINE PHOSPHATASE 88 U/L (45-117); BUN 13 mg/dl (7-24); CHLORIDE 104 mmol/L (98-107); CREATININE 0.84 mg/dL (0.55-1.02); POTASSIUM 4.1 mmol/L (3.5-5.1); SGOT/AST 17 IU/L (3-35); SGPT/ALT 20 U/L (12-78); SODIUM 141 mmol/L (136-145); TOTAL PROTEIN 6.4 gm/dL (6.4-8.2)
[2017-07-20 08:32] VITALS: BP 153/81
[2017-07-20] MEDS ORDERED: PREDNISONE20 M1 PO (09:31)
== END 2017-07-20 10:29 | disposition home or self-care (01) ==
LOC: ED 07:24
PROVIDERS: Emergency Medicine
DX: J44.1 Chronic obstructive pulmonary disease with (acute) exacerbation (principal); F32.9 Major depressive disorder, single episode, unspecified; F41.9 Anxiety disorder, unspecified; I10 Essential (primary) hypertension; E78.5 Hyperlipidemia, unspecified; I48.0 Paroxysmal atrial fibrillation; Z98.51 Tubal ligation status; Z79.899 Other long term (current) drug therapy; Z79.82 Long term (current) use of aspirin

== ENCOUNTER 2017-08-17 19:29 | Inpatient (IN) | payer MEDICARE, OTHER ==
[~2017-08-17] VITALS: Ht 167.6 cm; Wt 92.8 kg
--- NOTE | ~2017-08-17 | PR ---
[place], [place] PROGRESS NOTE NAME: ZAHIDA MCKEON UNIT #: [id number] ROOM: 529 DOCTOR: PAULA WALTERS MD,JULIA BIRTHDATE: [birth year] DOS: 08/20/2017 SUBJECTIVE: She has been noted reduction of the respiratory symptoms in the last 24 hours including wheezing, shortness of breath and cough. Cough has been still noted mild to moderately with some sputum expectoration at time. OBJECTIVE: VITAL SIGNS: Normal temperature, respiratory rate 18, heart rate 83, blood pressure 136/60. The pulse oxygen saturation on 2 liters, 97% saturation. HEENT: No acute change. NECK: Supple. CARDIOVASCULAR: S1, S2 audible. LUNGS: Moderate decreased breath sounds with mild to moderate expiratory wheezing, decreased from previous examination. ABDOMEN: Soft and obese. EXTREMITIES: Without any edema. LABORATORY DATA: CBC: Hemoglobin 8.8, hematocrit 26.6, WBC count and platelet count were normal. CMP, normal BUN and creatinine, CO2 36. IMPRESSION: The patient with improving acute exacerbation of chronic obstructive pulmonary disease with acute tracheobronchitis with current medical management, gradually. Reduction in respiratory symptom was noted in the last 24 hours. PLAN OF MANAGEMENT: Reduce the Solu-Medrol to 40 mg b.i.d. for this patient at this time. Ambulation was encouraged. Continue other treatment including bronchodilators. Usual care, other supportive plan of therapy and care. JULIA MITCHELL MD CM:PNTRANS [phone] JULIA WALTERS MD 08/20/17 1301 interface
--- NOTE | ~2017-08-17 | CON ---
[place], [place] REPORT OF CONSULTATION NAME: ZAHIDA MCKEON UNIT #: [id number] ROOM: 529 DOCTOR: TREMAINE RICHARDS MD BIRTHDATE: [birth year] DOS: 08/22/2017 HISTORY OF PRESENT ILLNESS: A 72-year-old patient who presented with multiple medical problems, among which has been extreme shortness of breath, exacerbation of COPD, anemia with H and H of 88 and 28. Lactic acid 1.3. INR of 1.0, comprehensive metabolic panel, electrolyte balance, liver function test normal. CBC differential was repeatedly readdressed. Total iron binding is low 16, reticulocyte count was 2.0. Blood cultures negative. Comprehensive metabolic panel repeatedly readdressed. Liver function tests are normal. PAST MEDICAL HISTORY: Associated with obesity, depression, COPD, active smoker, hyperlipidemia, hypertension, diabetes mellitus. SOCIAL HISTORY: Active smoker, nonalcohol consumer. FAMILY HISTORY: Noncontributory. MEDICATIONS: List has been reviewed including aspirin and Xarelto, which could have played a role in her anemia, on the other hand, omeprazole is on board. ALLERGIES: No known medication. REVIEW OF SYSTEMS: HEENT: Denies double vision, blurred vision. RESPIRATORY: Admits to shortness of breath. CARDIOVASCULAR: Denies chest pain. DIGESTIVE SYSTEM: No hematemesis, no hematochezia. PAST SURGICAL HISTORY: She has had a colonoscopy last year apparently elsewhere. PHYSICAL EXAMINATION: VITAL SIGNS: Stable. HEENT: Head normocephalic, nontraumatic. Mouth and buccal mucosa benign. NECK: Supple, no thyromegaly, no cervical lymphadenopathy. CHEST: Symmetric anatomy. LUNGS: COPD, diffuse wheezes anteroposteriorly noticed. HEART: Normal sinus rhythm, no gallop, no murmur. ABDOMEN: Soft, obese, large, no hepato-organomegaly can be elicited. EXTREMITIES: No cyanosis, no pedal edema. NEUROLOGIC: Alert and oriented to time, place, person. IMPRESSION: Chronic anemia, on Xarelto and aspirin, chronic obstructive pulmonary disease with exacerbation, obesity, obstructive sleep apnea. Other adjunctive diagnoses are hyperlipidemia and diabetes mellitus. PLAN AND DISCUSSION: We are going to stabilization of pulmonary status and as such, we are going to postpone investigation with the EGD. She is having a bronchoscopy today. Workup in progress. [place], [place] REPORT OF CONSULTATION NAME: ZAHIDA MCKEON UNIT #: [id number] ROOM: 529 DOCTOR: MAURICE SWIFT,TREMAINE BIRTHDATE: [birth year] TREMAINE RICHARDS MD CM:CONSTR:REPORT OF CONSULTATION 1150 08/22/17 1849 interface
--- NOTE | ~2017-08-17 | PR ---
[place], [place] PROGRESS NOTE NAME: ZAHIDA MCKEON UNIT #: [id number] ROOM: 529 DOCTOR: PAULA WALTERS MD,JULIA BIRTHDATE: [birth year] DOS: 08/23/2017 SUBJECTIVE: The patient has been noted comfortable at this time. Bronchoscopy done yesterday with the significant reduction in respiratory symptoms noted. Shortness of breath, coughing, wheezing all resolving. However, the resolution was noted incomplete. OBJECTIVE: VITAL SIGNS: This morning, normal temperature, respiratory rate 18, heart rate 86, blood pressure 150/76. Pulse oxygen saturation 3 liters nasal cannula 100% saturation. HEENT: Chronic obesity. NECK: Supple. CARDIOVASCULAR: S1, S2 is audible. LUNGS: The patient was noted without any wheeze or crackles at present time. Breaths are noted mild to moderate decreased. ABDOMEN: Soft, nontender. EXTREMITIES: Without edema. LABORATORY DATA: The culture of the bronchial washing shows normal karon, final culture results pending. Gram stain, moderate white blood cell, few epithelial cell, few gram-positive cocci in pairs and chains. IMPRESSION: Progressive resolution with acute exacerbation of chronic obstructive pulmonary disease, acute tracheobronchitis after bronchoscopy. The patient noted good enough of the patient at this time to be discharged home for further followup, management for the patient to be done as an outpatient. Tapering dose of prednisone. Continue abstinence tobacco use. Recommend the use of oxygen. JULIA MITCHELL MD CM:PNTRANS 1323 [id number] JULIA WALTERS MD 08/23/17 1339 interface
--- NOTE | ~2017-08-17 | PROC NOTE ---
[place], [place] PROCEDURE NOTE NAME: ZAHIDA MCKEON UNIT #: [id number] ROOM: 529 DOCTOR: PAULA WALTERS MD,JULIA BIRTHDATE: [birth year] DOS: 08/22/2017 PREOPERATIVE DIAGNOSES: The patient with persistent severe nonproductive cough, not resolved with maximal medical therapy, with wheezing. POSTOPERATIVE DIAGNOSES: Large plugs of mucus cleared off endobronchial tree bilaterally in subsegments. No endobronchial obstructive lesion. PROCEDURE DESCRIPTION: Informed consent obtained for the patient. The patient was placed in supine position. Administered conscious sedation. After achieving proper sedation, airway introduced into the mouth. Bronchoscope advanced through the airway into laryngeal area. Epiglottis was seen. Vocal cord was moving symmetrical, movements yellowish in color. Bronchoscope entered vocal cord and tracheal lumen. Tracheal lumen showed moderate amount of very thick mucoid secretion with small amount of purulent secretion, which was suctioned at sharita level. Large plugs of mucus were noted impacting almost all of the subsegments of right upper, right middle, right lower, left upper, lingula, and left lower lobe. All the bronchial mucus plugs were cleared with the help of normal saline wash and sent for culture. The procedure was well tolerated by the patient without any complications. Postoperative findings will be discussed with the patient once the patient recovered the effects of acute sedation. Based on the current bronchoscopy, no treatment changes were planned for today. Continue the patient's current other treatment as in progress. JULIA MITCHELL MD CM:PROCNOTE:PROCEDURE NOTE [id number] 1521 JULIA WALTERS MD
--- NOTE | ~2017-08-17 | CON ---
[place], [place] REPORT OF CONSULTATION NAME: ZAHIDA MCKEON UNIT #: [id number] ROOM: 529 DOCTOR: JULIA MAST MD BIRTHDATE: [birth year] DOS: 08/19/2017 Consultation requested by the hospitalist services. REASON FOR CONSULTATION: Assess the patient for ongoing respiratory symptoms with exacerbation of COPD. HISTORY OF PRESENT ILLNESS: This is a 72-year-old white female patient with past history of COPD, presented to the hospital. The patient is admitted to the hospital on 08/17/2017. The symptoms of shortness breath started associated coughing, increased chest congestion without any sputum expectoration about a week. The symptoms have been noted progressive, not responding. She was also noted progressive increased wheezing as well. She has been noted with acute exacerbation of chronic obstructive pulmonary disease at this time and has been managed for that problem. Denies symptoms of chest pain. Denies symptoms of hemoptysis. She stated minimal or no improvement in symptoms since hospitalization. REVIEW OF SYSTEMS: CONSTITUTIONAL SYMPTOMS: Continues to experience symptoms of tiredness, fatigue, does not report any symptoms of fever or chills. EYES: Denies any burning, redness, discharge, or dryness of the eyes. EARS, NOSE AND THROAT: No sore throat, hoarseness, otalgia, postnasal drainage or epistaxis. CARDIOVASCULAR: No anginal pain, edema, pain of the lower extremity, palpitation. GASTROINTESTINAL: Dysphagia, nausea, vomiting, diarrhea, abdominal pain, hematemesis, melena, or abnormal weight loss, history of chronic obesity. GENITOURINARY: No dysuria, suprapubic pain, hematuria. SKIN: No lesions or rashes. MUSCULOSKELETAL: No deformities or pain. CENTRAL NERVOUS SYSTEM: Denies dizziness, headache, diplopia, syncopal episodes, neurologic deficit or seizures. Remaining systems were reviewed. They were noted all negative. PAST MEDICAL HISTORY: Significant for last hospitalization: 1. In 06/2017, this hospital medical record review was for acute exacerbation of chronic obstructive pulmonary disease, acute tracheobronchitis. 2. Past history of atrial fibrillation with anticoagulation, which has been reported paroxysmal. 3. Chronic obstructive pulmonary disease. 4. Depression. 5. History of SVT. 6. Hyperlipidemia. 7. Essential hypertension. 8. Chronic obesity. 9. Type 2 diabetes mellitus. PAST SURGICAL HISTORY: Tubal ligation. [place], [place] REPORT OF CONSULTATION NAME: ZAHIDA MCKEON UNIT #: [id number] ROOM: 529 DOCTOR: JULIA MAST MD BIRTHDATE: [birth year] SOCIAL HISTORY: The patient is currently , has 2 children. Tobacco use was noted as a pack of cigarettes per day since teens and currently smoking about a half or less a pack of cigarettes per day. Denies history of alcohol use or any illicit drug use or denies any occupation related pulmonary exposure. FAMILY HISTORY: The patient's father with complication related to unknown cancer, he at the age of 6969 years old. Mother as well with complication related to chronic alcoholism at the age of 5656 years old. MEDICATIONS: The current administered medication were noted as use of ferrous sulfate, IV Solu-Medrol 60 mg b.i.d., aspirin, Xarelto, metoprolol succinate, vitamin D, omeprazole, trazodone, amitriptyline, Lipitor, Mucinex, azithromycin, lorazepam, Rocephin and other p.r.n. medications administration. DRUG ALLERGIES: The patient was noted as no known drug allergies. PHYSICAL EXAMINATION: GENERAL: A 72-year-old female who has been currently noted to be awake and alert without any acute distress, sitting on the bed. Height recorded on admission on 5 feet 6 inches, weight of 204 pounds, BMI 33. VITAL SIGNS: Normal temperature, respirations 18-20, heart rate of 93-91, blood pressure 114/67 132/63. Pulse oxygen saturation 3 liters canula 92% saturation. HEENT: Chronic obesity. Head was atraumatic. Eyes nonicterus. Decreased posterior pharyngeal space. CARDIOVASCULAR: S1, S2 is audible. LUNGS: The patient was noted with decreased breath sounds bilaterally with diffuse expiratory wheezing. There were no crackles. ABDOMEN: Soft, obese, nontender. EXTREMITIES: Without any edema, clubbing, cyanosis. Chronic obesity noted. Cranial nerves 2-12 intact. MUSCULOSKELETAL: No deformities. SKIN: Showed no lesions or rashes. LABORATORY DATA: Lactic acid on 08/17/2017 was normal at 1.3. CBC on 08/17/2017, hemoglobin 8.8, hematocrit of 28.2, WBC count normal, platelet count were normal. CMP of 08/17/2017, normal BUN and creatinine, CO2 of 35. Chest x-ray, 1 view, which was reviewed from faxed images of 08/17/2017. No acute pulmonary disease. Influenza rapid A and B, nasal washing antigen negative. Blood culture from the 3rd of this month showed no bacterial growth, final culture is pending. CBC this morning, WBC count 15.5, hemoglobin 8.9, hematocrit 29.1, platelet count 256,000. CMP, glucose 152. Normal BUN and creatinine. CO2 of 34. IMPRESSION: 1. The patient will be currently admitted to the hospital with continued nicotine dependence. The patient has history of chronic obstructive pulmonary disease presented to the hospital and has been treated for the patient at this time for acute exacerbation of chronic obstructive pulmonary disease, acute tracheobronchitis without much improvement in the last couple of days with current medical management. [place], [place] REPORT OF CONSULTATION NAME: ZAHIDA MCKEON UNIT #: [id number] ROOM: 529 DOCTOR: JULIA MAST MD BIRTHDATE: [birth year] 2. History of chronic severe obesity as well. 3. Anemia most likely chronic disease without any active gastrointestinal bleeding or other bleeding sources were known. 4. Possibility of obstructive sleep apnea disorder would be considered with current clinical assessment and physical examination. PLAN OF TREATMENT: Continue the use of the Solu-Medrol as previously ordered. The patient is getting anticoagulation with Xarelto for atrial fibrillation, remains well controlled. Mucinex was given 1200 mg b.i.d. and the flutter valve. Await for another 24-48 hours. If the symptom remains persistent without any response with current maximal medical management, consider therapeutic bronchoscopy to help clear mucus impaction, major airways. In the meantime, continue the patient other therapy, plan of management and care plan. Usual treatment with the addition treatment changes to be made based on the progression of illness. Supportive therapy, plan of management and care. Thank you for allowing me to participate in the care of this patient. JULIA MITCHELL MD CM:CONSTR:REPORT OF CONSULTATION 1326 08/19/17 1416 interface
--- NOTE | ~2017-08-17 | PR ---
[place], [place] PROGRESS NOTE [id number] UNIT #: [id number] ROOM: 529 DOCTOR: PAULA WALTERS MD,JULIA BIRTHDATE: [birth year] DOS: 08/21/2017 SUBJECTIVE: She has been doing well for the patient yesterday, but later on noted progressive worsening of the respiratory symptom with a severe episode of cough without any sputum expectoration, prior to that the patient had been noted to have moderate cough and expectorating sputum. Short of breath also occurred with the coughing episodes as well as wheezing and tightness in the chest. She denies any symptoms of hemoptysis. She has been continued all other previous treatment for the medical management of COPD without any major changes. OBJECTIVE: VITAL SIGNS: Recorded shows the temperature of the patient recorded as normal, respiratory rate of 18. This morning, heart rate 84, blood pressure 140/70, pulse oxygen saturation on 2.5 liters nasal cannula 98% saturation recorded. HEENT: Showed no acute change. NECK: Supple. CARDIOVASCULAR: S1, S2 audible. LUNGS: The patient noted with moderate expiratory wheezing without any crackles. ABDOMEN: Soft, nontender. EXTREMITIES: Without any edema, clubbing, or cyanosis. LABORATORY DATA: There were no labs rather done today. IMPRESSION: 1. The patient ____ respiratory symptom with increased coughing, which has been noted constantly not productive, patient episodic. 2. Acute exacerbation of chronic obstructive pulmonary disease with acute bronchitis as well. 3. History of chronic obesity as well. PLAN OF MANAGEMENT: The patient will be continued on current dose of corticosteroids, bronchodilators, Mucinex, and other treatments without any changes. The bronchoscopy would be done tomorrow morning for assessment of endobronchial tree to help clear the endobronchial secretions. The Xarelto will be held for today and to be resumed tomorrow after the bronchoscopy. This will minimize any bleeding. All other supportive plan of management and care. Usual therapy. Additional treatment changes will be made for this patient based on progression of the illness. Risk and benefits of the bronchoscopy has been discussed with the patient in detail. The patient accepted those and the procedure was scheduled for the morning. N.p.o. past midnight status will be achieved from midnight tonight as well. [place], [place] PROGRESS NOTE NAME: ZAHIDA MCKEON UNIT #: [id number] ROOM: 529 DOCTOR: JULIA MAST MD BIRTHDATE: [birth year] JULIA MITCHELL MD CM:MARIALUISA 1103 173 JULIA WALTERS MD 08/21/17 173 interface
--- NOTE | ~2017-08-17 | PR ---
[place], [place] PROGRESS NOTE NAME: ZAHIDA MCKEON UNIT #: [id number] ROOM: 529 DOCTOR: JULIA MAST MD BIRTHDATE: [birth year] DOS: 08/22/2017 SUBJECTIVE: She has been noted similar symptoms of significant severe cough, which has been noted episodic and not changed from yesterday. The patient with continued high dose intravenous Solu-Medrol and bronchodilators and other treatment. She was n.p.o. past midnight bronchoscopy which was planned for today. OBJECTIVE: VITAL SIGNS: For the patient this morning normal temperature, respiratory rate of 17, heart rate 80, blood pressure 149/79. The pulse oxygen saturation on 2 liters nasal cannula 95% saturation. HEENT: Chronic obesity. NECK: Supple. CARDIOVASCULAR: S1, S2 audible. LUNGS: The patient was noted with moderate decreased breath sounds with expiratory wheezing remains persistent. There were no crackles. ABDOMEN: Soft, obese, nontender. EXTREMITIES: No edema. LABORATORY DATA: CBC today, normal WBC count and platelet count, hemoglobin 9.5, hematocrit 29.3. CMP this morning, glucose 164, normal BUN and creatinine, CO2 33. IMPRESSION: 1. Persistent ongoing acute exacerbation of chronic obstructive pulmonary disease was noted with a severe nonproductive cough, which are noted episodic suspected mucus impaction of major airways. 2. Chronic metabolic alkalosis secondary to the chronic obstructive pulmonary disease as well. 3. Chronic obesity as well. PLAN OF TREATMENT: Continuation of the antibiotics. The patient is on Solu-Medrol at current dose. Continuation of the patient and flutter valve and other treatment. Proceed with the bronchoscopy. The Xarelto was placed on hold. The patient will probably be resumed after bronchoscopy if there would be no complications. All other supportive plan of therapy care and management. [place], [place] PROGRESS NOTE NAME: ZAHIDA MCKEON UNIT #: [id number] ROOM: 529 DOCTOR: JULIA MAST MD BIRTHDATE: [birth year] JULIA MITCHELL MD CM:PNTRANS 0946 1446 JULIA WALTERS MD 08/22/17 1447 interface
--- NOTE | ~2017-08-17 | EKG ---
[place], [place] ELECTROCARDIOGRAM REPORT NAME: ZAHIDA MCKEON UNIT #: [id number] ROOM: 529 DOCTOR: TEE KENNEY MD BIRTHDATE: [birth year] DOS: 08/17/2017 TIME: 2005 hours. FINDINGS: 1. Normal sinus rhythm at 64 beats per minute. 2. Nonspecific T-wave changes in anterior chest leads. 3. No previous tracing is available for comparison. TEE KENNEY MD CM:EKGRPT:ELECTROCARDIOGRAM REPORT 1714 1813 TEE KENNEY MD
[~2017-08-17 19:29] MED LIST changes: +PREDNISONE20 M1 PO
[2017-08-17 19:40] VITALS: BP 145/65
[2017-08-17 20:05] LABS: BASO % 0.6 % (0.0-1.0); EOS # 0.1 10*3/uL (0.0-0.4); EOS % 2.1 % (1.0-4.0); HEMATOCRIT 28.2 % (37.0-47.0); HEMOGLOBIN 8.8 g/dl (12.0-16.0); LYMPH # 1.9 10*3/uL (1.3-4.4); LYMPH % 36.8 % (27.0-41.0); MEAN CORPUSCULAR HGB 28.4 pg (27.0-31.0); MEAN CORPUSCULAR HGB CONC 31.2 g/dl (33.0-37.0); MEAN PLATELET VOLUME 8.7 fl (9.6-12.3); MONO # 0.7 10*3/uL (0.1-1.0); MONO % 13.3 % (3.0-9.0); NEUT # 2.5 10*3/uL (2.3-7.9); NEUT % 46.8 % (47.0-73.0); PLATELET COUNT AUTOMATED 282 10*3/uL (130-400); RED CELL DISTRI WIDTH 13.3 % (0-14.5); WHITE BLOOD COUNT 5.3 10*3/uL (4.8-10.8)
[2017-08-17 20:16] LABS: INTERNATIONAL NORM RATIO 1.1 (2.0-3.5)
[2017-08-17 20:24] LABS: ALBUMIN 3.3 gm/dl (3.1-4.5); ALKALINE PHOSPHATASE 78 U/L (45-117); BUN 7 mg/dl (7-24); CHLORIDE 103 mmol/L (98-107); CREATININE 0.73 mg/dL (0.55-1.02); POTASSIUM 3.5 mmol/L (3.5-5.1); SGOT/AST 13 IU/L (3-35); SGPT/ALT 17 U/L (12-78); SODIUM 142 mmol/L (136-145); TOTAL PROTEIN 6.7 gm/dL (6.4-8.2)
[2017-08-17 20:25] LABS: TROPONIN I < 0.015 ng/ml (<0.045)
[2017-08-17 21:51] VITALS: BP 159/71; BP 159/74
--- NOTE | 2017-08-17 22:22 | NUR ---
A 72, admitted to 5E, under the services of ELMO Trujillo DO with a diagnosis of COPD EXACERBATION, ANEMIA. Chief complaint is SOB WITH EXERTIONAL. Patient arrived via ambulatory from ER. Monitor applied. Initial assessment completed. Vital signs taken and recorded. ELMO TRUJILLO DO notified of admission to the unit. Orders received. See assessment for past medical history, medications and allergies. Patient and/or family oriented to unit. [facility] visitation policy reviewed. Clothing/patient valuable form completed. MARY GR
[2017-08-18] VITALS: BP 146/70
--- NOTE | 2017-08-18 03:36 | NUR ---
Resting quietly in bed. During midnight assessment stating feels much better. Denies pain or SOB at this time. Resp easy and regular.
[2017-08-18 06:24] LABS: BASO % 0.2 % (0.0-1.0); HEMATOCRIT 27.7 % (37.0-47.0); HEMOGLOBIN 8.5 g/dl (12.0-16.0); LYMPH % 18.8 % (27.0-41.0); MEAN CELL VOLUME 90.5 fl (81.0-99.0); MEAN CORPUSCULAR HGB 27.8 pg (27.0-31.0); MEAN CORPUSCULAR HGB CONC 30.7 g/dl (33.0-37.0); MEAN PLATELET VOLUME 9.5 fl (9.6-12.3); MONO # 0.1 10*3/uL (0.1-1.0); MONO % 1.4 % (3.0-9.0); NEUT % 78.8 % (47.0-73.0); PLATELET COUNT AUTOMATED 293 10*3/uL (130-400); RED BLOOD COUNT 3.06 10*6/uL (4.10-5.10); RED CELL DISTRI WIDTH 13.2 % (0-14.5); WHITE BLOOD COUNT 5.1 10*3/uL (4.8-10.8)
[2017-08-18 06:35] LABS: ALKALINE PHOSPHATASE 75 U/L (45-117); BUN 7 mg/dl (7-24); CHLORIDE 105 mmol/L (98-107); CHOLESTEROL 139 mg/dL (<200); CREATININE 0.67 mg/dL (0.55-1.02); HDL CHOLESTEROL 65 mg/dl (40-60); LDL CHOLESTEROL 65 mg/dL (9-159); PHOSPHOROUS 3.2 mg/dL (2.5-4.9); POTASSIUM 4.1 mmol/L (3.5-5.1); SGPT/ALT 15 U/L (12-78); SODIUM 141 mmol/L (136-145); TOTAL PROTEIN 6.5 gm/dL (6.4-8.2); TRIGLYCERIDES 47 mg/dl (<150); VLDL CHOLESTEROL 9 mg/dL (6-40)
[2017-08-18 06:40] LABS: FREE T4 1.03 ng/dl (0.76-1.46); SGOT/AST 14 IU/L (3-35); THYROID STIM HORMONE (HS) 0.683 uIU/ml (0.358-4.75)
[2017-08-18 06:44] LABS: INTERNATIONAL NORM RATIO 1.1 (2.0-3.5)
--- NOTE | 2017-08-18 07:39 | NUR ---
Shift chart check completed.
[2017-08-18 08:00] VITALS: BP 142/67
--- NOTE | 2017-08-18 08:30 | NUR ---
Hub Cutter Apprentice in to talk to patient. Patient states lives at HOME with HER GRANDCHILDREN. There are 12 steps in the home. Physician: JANET PA Pharmacy: [facility] Home health services: NONE Patient's level of ADLs: INDEPENDENT Patient has working utilities: YES DME: O2 [facility] Follow-up physician's appointment after d/c: WILL BE MADE PRIOR TO DC Does patient want to access PORTAL?: Discharge plan HOME. JOVITA SAHU
[2017-08-18 09:40] LABS: VITAMIN D, 25-HYDROXY 39.3 ng/mL (30-100)
[2017-08-18 12:00] VITALS: BP 151/64
--- NOTE | 2017-08-18 14:20 | NUR ---
STOPED IV FLUIDS PER ORDER PT COPLAINS OF SHORTNESS OF BREATH. CALLED FOR BREATHING TREATMENT. PT ABLET O SPEAK IN FULL SENTENCES, NO DISTRESES NOTED.
--- NOTE | 2017-08-18 14:25 | NUR ---
PT COMPLAINS OF GENERALIZED ACHE, TYLENOL GIVEN. SEE MAR. WILL MONITOR FOR EFFECTIVENESS
[2017-08-18 16:00] VITALS: BP 147/56
--- NOTE | 2017-08-18 17:46 | NUR ---
PT STATES IF ANY NEW RX ARE GIVEN THAT WILL BE REFILLS AND [facility] SHE PREFERS FOR THOSE TO BE SENT TO [facility]
[2017-08-18 20:00] VITALS: BP 156/77
[2017-08-19] VITALS: BP 132/63
--- NOTE | 2017-08-19 01:47 | NUR ---
PRN TYLENOL GIVEN FOR HEADACHE RATED 5/10. WILL EVALUATE FOR EFFECTIVENESS.
--- NOTE | 2017-08-19 02:19 | NUR ---
PAIN MEDICATION EFFECTIVE. PT RESTING EASILY. RESPIRATIONS REGULAR WITH NO DISTRESS NOTED.
[2017-08-19 07:00] LABS: IRON 16 ug/dL (50-170); TOTAL IRON BINDING CAPACITY 386 ug/dl (250-450)
[2017-08-19 07:08] LABS: RETICULOCYTE % 2.2 % (0.50-2.50)
[2017-08-19 07:18] LABS: FERRITIN 19.6 ng/mL (10.0-291.0)
--- NOTE | 2017-08-19 08:00 | NUR ---
RESTING QUIETLY IN BED, NO C/O NO DISTRESS NOTED. HOB ELEVATED WITH O2 ON. SEE SHIFT ASSESSMENT.
--- NOTE | 2017-08-19 11:00 | NUR ---
DR MITCHELL HERE AND NOTIFIED OF CONSULT. VISITED PT.
[2017-08-19 11:41] LABS: BASO # 0.1 10*3/uL (0.0-0.1); BASO % 0.3 % (0.0-1.0); EOS # 0.1 10*3/uL (0.0-0.4); EOS % 0.4 % (1.0-4.0); HEMATOCRIT 29.1 % (37.0-47.0); HEMOGLOBIN 8.9 g/dl (12.0-16.0); LYMPH # 3.8 10*3/uL (1.3-4.4); LYMPH % 24.6 % (27.0-41.0); MEAN CELL VOLUME 92.7 fl (81.0-99.0); MEAN CORPUSCULAR HGB 28.3 pg (27.0-31.0); MEAN CORPUSCULAR HGB CONC 30.6 g/dl (33.0-37.0); MEAN PLATELET VOLUME 9.4 fl (9.6-12.3); MONO # 1.3 10*3/uL (0.1-1.0); MONO % 8.5 % (3.0-9.0); NEUT # 10.2 10*3/uL (2.3-7.9); NEUT % 65.7 % (47.0-73.0); PLATELET COUNT AUTOMATED 356 10*3/uL (130-400); RED BLOOD COUNT 3.14 10*6/uL (4.10-5.10); RED CELL DISTRI WIDTH 13.7 % (0-14.5); WHITE BLOOD COUNT 15.5 10*3/uL (4.8-10.8)
[2017-08-19 12:00] VITALS: BP 149/67
[2017-08-19 12:07] LABS: ALBUMIN 3.3 gm/dl (3.1-4.5); ALKALINE PHOSPHATASE 74 U/L (45-117); BUN 10 mg/dl (7-24); CHLORIDE 105 mmol/L (98-107); CREATININE 0.91 mg/dL (0.55-1.02); POTASSIUM 3.5 mmol/L (3.5-5.1); SGOT/AST 18 IU/L (3-35); SGPT/ALT 19 U/L (12-78); SODIUM 145 mmol/L (136-145); TOTAL PROTEIN 6.8 gm/dL (6.4-8.2)
--- NOTE | 2017-08-19 14:30 | NUR ---
RESTING QUIETLY IN BED, NO C/O NO DISTRESS NOTED. WILL CONTINUE TO MONITOR.
[2017-08-19 16:00] VITALS: BP 144/67
[2017-08-19 20:00] VITALS: BP 161/78
[2017-08-20] VITALS (7 sets, daily range): BP systolic 136–170; BP diastolic 60–91
--- NOTE | 2017-08-20 05:10 | NUR ---
PER PT REQUEST, RESPIRATORY THERAPY NOTIFIED OF PTS REQUEST FOR A BREATHING TREATMENT.
[2017-08-20 06:20] LABS: BASO % 0.1 % (0.0-1.0); HEMATOCRIT 28.6 % (37.0-47.0); HEMOGLOBIN 8.8 g/dl (12.0-16.0); LYMPH % 11.7 % (27.0-41.0); MEAN CELL VOLUME 90.8 fl (81.0-99.0); MEAN CORPUSCULAR HGB 27.9 pg (27.0-31.0); MEAN CORPUSCULAR HGB CONC 30.8 g/dl (33.0-37.0); MEAN PLATELET VOLUME 9.5 fl (9.6-12.3); MONO # 0.2 10*3/uL (0.1-1.0); MONO % 2.5 % (3.0-9.0); NEUT # 7.3 10*3/uL (2.3-7.9); NEUT % 83.8 % (47.0-73.0); PLATELET COUNT AUTOMATED 312 10*3/uL (130-400); RED BLOOD COUNT 3.15 10*6/uL (4.10-5.10); RED CELL DISTRI WIDTH 13.6 % (0-14.5); WHITE BLOOD COUNT 8.7 10*3/uL (4.8-10.8)
[2017-08-20 06:54] LABS: ALBUMIN 3.2 gm/dl (3.1-4.5); ALKALINE PHOSPHATASE 69 U/L (45-117); BUN 13 mg/dl (7-24); CHLORIDE 103 mmol/L (98-107); CREATININE 0.78 mg/dL (0.55-1.02); POTASSIUM 3.9 mmol/L (3.5-5.1); SGOT/AST 21 IU/L (3-35); SGPT/ALT 24 U/L (12-78); SODIUM 142 mmol/L (136-145); TOTAL PROTEIN 6.6 gm/dL (6.4-8.2)
--- NOTE | 2017-08-20 07:58 | NUR ---
Shift chart check completed.
[2017-08-21] VITALS: BP 139/74
--- NOTE | 2017-08-21 04:37 | NUR ---
PATIENT AMBULATORY. NO S/S OF DISTRESS. NO COMPLAINTS OF SHORTNESS OF BREATH. OXYGEN INTACT RAMONE NC. PATIENT WITH HISTORY OF SMOKING. POSS. BRONCH ON FRIDAY VIA DR MITCHELL IF NO IMPROVEMENT.
--- NOTE | 2017-08-21 06:34 | NUR ---
24 HR chart check completed.
[2017-08-21 07:54] VITALS: BP 140/70
[2017-08-21 12:00] VITALS: BP 149/69
--- NOTE | 2017-08-21 12:45 | NUR ---
DR RICHARDS NOTIFIED OF CONSULT, NO NEW ORDERS.
[2017-08-21 16:00] VITALS: BP 147/66
--- NOTE | 2017-08-21 18:30 | NUR ---
DISCUSSED NPO STATUS FOR AM PROCEDURE, PT VOICES UNDERSTANDING.
[2017-08-21 20:00] VITALS: BP 150/79
--- NOTE | 2017-08-21 23:35 | NUR ---
IV STARTED IN RIGHT WRIST, CLEANED WITH CHLOROPREP, 20 GA PLACED AND SECURED, FLUSHES EASILY, NO INFILTRATE NOTED.
[2017-08-22] VITALS (10 sets, daily range): BP systolic 149–187; BP diastolic 67–100
--- NOTE | 2017-08-22 03:39 | NUR ---
PATIENT LYING IN BED. NO S/S OF DISTRESS, EYES CLOSED. IV RIGHT WRIST FLUSHES EASILY, NO INFILTRATION NOTED. PATIENT NPO FOR BRONCHOSCOPE TODAY. OXYGEN INTACT VIA NASAL CANNULA.
--- NOTE | 2017-08-22 06:49 | NUR ---
PATIENT HAS PAPERS FILLED OUT, WASHED, AND PATIENT NOTIFIED OF SURGICAL TIME. NAME BAND AND ALLERGY BAND ON. PATIENT HAS BEEN NPO SINCE BEFORE MIDNIGHT. RECENT VITALS ON CHART WITH BGM= 183.
[2017-08-22 06:57] LABS: BASO % 0.1 % (0.0-1.0); HEMATOCRIT 29.3 % (37.0-47.0); HEMOGLOBIN 8.9 g/dl (12.0-16.0); LYMPH # 1.1 10*3/uL (1.3-4.4); LYMPH % 10.2 % (27.0-41.0); MEAN CELL VOLUME 90.7 fl (81.0-99.0); MEAN CORPUSCULAR HGB 27.6 pg (27.0-31.0); MEAN CORPUSCULAR HGB CONC 30.4 g/dl (33.0-37.0); MEAN PLATELET VOLUME 9.2 fl (9.6-12.3); MONO # 0.5 10*3/uL (0.1-1.0); MONO % 4.9 % (3.0-9.0); NEUT # 8.6 10*3/uL (2.3-7.9); NEUT % 82.5 % (47.0-73.0); NUCLEATED RED BLOOD CELL 0.2 % (0.0-0.0); PLATELET COUNT AUTOMATED 353 10*3/uL (130-400); RED BLOOD COUNT 3.23 10*6/uL (4.10-5.10); RED CELL DISTRI WIDTH 13.8 % (0-14.5); WHITE BLOOD COUNT 10.4 10*3/uL (4.8-10.8)
[2017-08-22 07:14] LABS: ALBUMIN 3.3 gm/dl (3.1-4.5); ALKALINE PHOSPHATASE 68 U/L (45-117); BUN 22 mg/dl (7-24); CHLORIDE 103 mmol/L (98-107); POTASSIUM 4.1 mmol/L (3.5-5.1); SGOT/AST 14 IU/L (3-35); SGPT/ALT 26 U/L (12-78); SODIUM 142 mmol/L (136-145); TOTAL PROTEIN 6.7 gm/dL (6.4-8.2)
--- NOTE | 2017-08-22 08:17 | NUR ---
TO OR VIA BED, CONDITION STABLE. SEE SHIFT ASSESSMEMT.
--- NOTE | 2017-08-22 11:40 | NUR ---
DR RICHARDS IN TO SEE PT & DISCUSS PLAN OF CARE WITH PT & FAMILY.
--- NOTE | 2017-08-22 12:43 | NUR ---
PHYSICAL THERAPY PAtient evaluated on 5, full evaluation to follow. PAtient (I) all functional mobility. D/C PT after evaluation. Ptient has been (I) throughout room. PAtient encouraged to ambulate the halls with 02 multiple times throughout the day. PAtient is low complexity via chart review, tests and evaluation: [id number]. Thank you for this referral. Blanche Oconnell,PT
--- NOTE | 2017-08-22 13:00 | NUR ---
Occupational Therapy evaluation completed this date on 5 with full eval to follow. Precautions include O2 dependent, IV UE, low complexity level 98250. Recommend return home with family. Patient is independent in ADLs, functional mobility without a device. No further OT indicated at this time. Patient in agreement with this plan. Thank you for this referral. Sandra Sesay OTR/l
--- NOTE | 2017-08-22 15:47 | NUR ---
MEDICATED PO ORDERED PER PT REQUEST WITH TYLENOL FOR C/O FRONTAL CONNELL. SEE EMAR.
[2017-08-23] VITALS: BP 158/91
--- NOTE | 2017-08-23 | NUR ---
PA REPORTED BP READING OF 158/91. REPEAT MANUAL PRESSURE READ AT 138/70.
[2017-08-23 01:26] VITALS: BP 138/70
--- NOTE | 2017-08-23 04:00 | NUR ---
PT RESTING QUIETLY WITH NO COMPLAINTS AT THIS TIME. RESPIRATIONS EASY, HR 92 PER CM. CALL LIGHT IN REACH, BED IN LOWEST POSITION.
[2017-08-23 08:00] VITALS: BP 158/76
--- NOTE | 2017-08-23 08:12 | NUR ---
Shift chart check completed.
[2017-08-23] MEDS ORDERED: MUCINEX ER600 MG PO (10:36)
[2017-08-23] MEDS ORDERED: PREDNISONE10 MG PO (10:36)
[2017-08-23] MEDS ORDERED: LEVAQUIN500 M2 PO (10:36)
[2017-08-23] MEDS ORDERED: FEROSUL325 MG PO (10:37)
--- NOTE | 2017-08-23 11:52 | NUR ---
WENT OVER D/C INSTRUCTIONS WITH PATIENT AND GRANDSON. REMOVED 2 IV'S WITH CATHERTERS INTACT AND BLEEDING CONTROLLED. PATIENT VERBALIZED UNDERSTANDING THAT SCRIPTS WERE SENT TO PHARMACY. PATIENT REFUSED TO HAVE HER BGM DONE BEFORE LEAVING. PATIENT IS BEING TAKEN TO EXIT VIA WHEELCHAIR. PATIENT IS D/C HOME.
[2017-08-23 16:11] LABS: ACID FAST SMEAR Negative (.); ACID FAST SPEC PROCESSING Concentration (.)
[2017-08-24] MEDS ORDERED: PROZAC40 M1 PO (18:34)
[2017-08-24] MEDS ORDERED: ANORO ELLIPTA1 EACH INH (18:36)
== END 2017-08-23 11:52 | disposition home or self-care (01) | DRG 191 ==
LOC: ED 19:29 → 5E 20:59 → EDHOLD 20:59 → 4E 21:13 → 5E 21:13
PROVIDERS: Emergency Medicine Emergency Medical Services; Hospitalist; Internal Medicine; Internal Medicine Critical Care Medicine; Registered Nurse; ADMIT Internal Medicine
PROC: 0BC28ZZ Extirpation of Matter from Carina, Via Natural or Artificial Opening Endoscopic (ICD-10-PCS; principal; 2017-08-22)
PROC: 0BCB8ZZ Extirpation of Matter from Left Lower Lobe Bronchus, Via Natural or Artificial Opening Endoscopic (ICD-10-PCS; principal; 2017-08-22)
PROC: 0BC18ZZ Extirpation of Matter from Trachea, Via Natural or Artificial Opening Endoscopic (ICD-10-PCS; principal; 2017-08-22)
PROC: 0BC88ZZ Extirpation of Matter from Left Upper Lobe Bronchus, Via Natural or Artificial Opening Endoscopic (ICD-10-PCS; principal; 2017-08-22)
PROC: 0BC68ZZ Extirpation of Matter from Right Lower Lobe Bronchus, Via Natural or Artificial Opening Endoscopic (ICD-10-PCS; principal; 2017-08-22)
PROC: 0BC58ZZ Extirpation of Matter from Right Middle Lobe Bronchus, Via Natural or Artificial Opening Endoscopic (ICD-10-PCS; principal; 2017-08-22)
PROC: 0BC98ZZ Extirpation of Matter from Lingula Bronchus, Via Natural or Artificial Opening Endoscopic (ICD-10-PCS; principal; 2017-08-22)
PROC: 0BC48ZZ Extirpation of Matter from Right Upper Lobe Bronchus, Via Natural or Artificial Opening Endoscopic (ICD-10-PCS; principal; 2017-08-22)
DX: J44.0 Chronic obstructive pulmonary disease with (acute) lower respiratory infection (principal); I50.32 Chronic diastolic (congestive) heart failure; E44.0 Moderate protein-calorie malnutrition; E87.3 Alkalosis; J96.10 Chronic respiratory failure, unspecified whether with hypoxia or hypercapnia; E11.65 Type 2 diabetes mellitus with hyperglycemia; E67.8 Other specified hyperalimentation; I48.0 Paroxysmal atrial fibrillation; I11.0 Hypertensive heart disease with heart failure; J44.1 Chronic obstructive pulmonary disease with (acute) exacerbation; Z99.81 Dependence on supplemental oxygen; D64.9 Anemia, unspecified; E55.9 Vitamin D deficiency, unspecified; J20.9 Acute bronchitis, unspecified; G47.33 Obstructive sleep apnea (adult) (pediatric); E78.5 Hyperlipidemia, unspecified; E66.9 Obesity, unspecified; F32.9 Major depressive disorder, single episode, unspecified; F41.9 Anxiety disorder, unspecified; F17.210 Nicotine dependence, cigarettes, uncomplicated; Z98.51 Tubal ligation status; Z68.33 Body mass index [BMI] 33.0-33.9, adult; Z98.42 Cataract extraction status, left eye; Z79.01 Long term (current) use of anticoagulants; Z79.82 Long term (current) use of aspirin; Z79.899 Other long term (current) drug therapy; Z81.1 Family history of alcohol abuse and dependence; Z80.8 Family history of malignant neoplasm of other organs or systems

== ENCOUNTER 2017-08-24 15:13 | Inpatient (IN) | payer MEDICARE, OTHER ==
[~2017-08-24] VITALS: Ht 167.6 cm; Wt 93.2 kg
--- NOTE | ~2017-08-24 | PR ---
[place], [place] PROGRESS NOTE NAME: ZAHIDA MCKEON UNIT #: [id number] ROOM: 425 DOCTOR: PAULA AWLTERS MD,JULIA BIRTHDATE: [birth year] DOS: 08/26/2017 SUBJECTIVE: The patient has been noted comfortable at this time, resting on the bed without any acute distress. The coughing and shortness of breath of the patient has been improving. OBJECTIVE: VITAL SIGNS: Normal temperature, respiratory rate 18, heart rate 77, blood pressure 151/87. Pulse ox saturation on 3 liters nasal cannula 94% saturation. HEENT: Examination shows no acute change. NECK: Supple. CARDIOVASCULAR: S1, S2 audible. LUNGS: Without any wheeze or crackles at present time. ABDOMEN: Soft, nontender. IMPRESSION: The patient with resolving progressively acute exacerbation of chronic obstructive pulmonary disease and/or debility. PLAN OF MANAGEMENT: The patient could be discharge home with home health physical therapy and also arrangement for the oxygen needs and others. Home health physical therapy will be given as well. Usual care. JULIA MITCHELL MD CM:PNJAYESH [id number] JULIA WALTERS MD 08/26/17 1249 interface
--- NOTE | ~2017-08-24 | CON ---
[place], [place] REPORT OF CONSULTATION NAME: ZAHIDA MCKEON UNIT #: [id number] ROOM: 425 DOCTOR: JULIA MAST MD BIRTHDATE: [birth year] DOS: 08/25/2017 CONSULTATION REQUESTED BY: Hospitalist service for assessment of shortness of breath. HISTORY OF PRESENT ILLNESS: A 72-year-old white female well known to me. She has been admitted to the hospital recently and discharged home on 12/22/2016. The patient stated that she has not been noted with enough oxygen at home to be used because of the shortness of breath and also did not get her medication in time to be used in the home setting post discharge. She presented back to the Emergency Room on 08/24/2017 for symptoms of generalized weakness, fatigue, and symptoms of shortness of breath. The patient denies symptoms of chest pain. The coughing has been noted resolved. There was no wheezing described. Denies symptoms of chest pain or hemoptysis. REVIEW OF SYSTEMS: GENERAL: Weakness and fatigue were reported. There were no symptoms of fever or chills. EYES: Denies any burning, redness, or tenderness. EARS, NOSE, AND THROAT: Denies sore throat, hoarseness, otalgia, postnasal drainage or epistaxis. CARDIOVASCULAR: Denies anginal pain, edema, or pain of the lower extremity. GASTROINTESTINAL: Denies dysphagia, nausea, vomiting, diarrhea, abdominal pain, hematemesis, melena, or hematochezia. SKIN: Denies lesions or rashes. CENTRAL NERVOUS SYSTEM: General weakness, but there were no focal neurologic deficits reported or symptoms of syncopal episode or tingling sensation of the extremities. Remaining systems were reviewed with the patient, they were noted all negative. PAST MEDICAL HISTORY: 1. The patient was known with history of COPD. 2. Depression. 3. Chronic obesity. 4. Hyperlipidemia. 5. SVT. 6. Type 2 diabetes mellitus. 7. Atrial fibrillation, on chronic anticoagulation. PAST SURGICAL HISTORY: 1. Tubal ligation. 2. Therapeutic bronchoscopy that was done for this patient on 08/22/2017. SOCIAL HISTORY: The patient lives at home, , has 2 children. She started smoking cigarettes at the age of [age] years old up to 2 packs of cigarettes per day, which has been decreased to 1 pack of cigarettes per day. Denies any history of alcohol use or illicit drug use. FAMILY HISTORY: The patient's father of complication of unknown cancer, he [place], [place] REPORT OF CONSULTATION NAME: ZAHIDA MCKEON UNIT #: [id number] ROOM: 425 DOCTOR: PAULA WALTERS MDJULIA BIRTHDATE: [birth year] was 58 years old. Mother at age of 5656 years old from complication of chronic alcoholism. MEDICATIONS: Administered for the patient were noted use of Xarelto, vitamin D, metoprolol succinate, Mucinex, omeprazole, DuoNeb, ferrous sulfate, trazodone, Prozac, Lipitor, amitriptyline, lorazepam, IV Zosyn, Levaquin and vancomycin. The patient was also getting some other p.r.n. medications as well. DRUG ALLERGY HISTORY: Noted as no known drug allergies. PHYSICAL EXAMINATION: GENERAL: This is a 72-year-old female who has been currently noted to be awake and alert without any acute distress at the time of the examination. VITAL SIGNS: Height was recorded as 5 feet 6 inches, weight of 205 pounds, BMI 33. Normal temperature, respiratory rate 20, heart rate of 80, blood pressure 154/83. The pulse oxygen 97% saturation. HEENT: Examination shows no acute change. Head was atraumatic. NECK: Supple. CARDIOVASCULAR: S1, S2 is audible. LUNGS: The patient was noted without any wheeze or crackle. Breaths are noted mildly decreased bilaterally. ABDOMEN: Soft, obese, nontender. EXTREMITIES: Shows minimal ankle edema; otherwise, normal. CENTRAL NERVOUS SYSTEM: Cranial nerves 2-12 intact. No focal deficit. MUSCULOSKELETAL: No deformities. SKIN: No lesions or rashes. LABORATORY DATA: The patient's CBC on admission, WBC count normal, hemoglobin 9.4, hematocrit 30.6, platelet count was normal. PT/PTT was noted normal. The CMP of the patient on 08/24/2017, normal BUN and creatinine. Potassium 3.3. Troponins were normal. CMP this morning for this patient, potassium was corrected to be normal. CO2 of 39. CBC, anemia noted; otherwise, normal CBC. The chest x-ray, PA and lateral view, which was done in the Emergency Room, the patient was also noted without any evidence of acute pulmonary infiltration. A small area of atelectasis noted in the right middle lobe, which has been improving as compared with the previous chest x-ray on recent hospitalization. IMPRESSION: 1. The patient who has been currently admitted to the hospital noted with the lack of medication use, possible tobacco smoker resuming with resolving exacerbation of chronic obstructive pulmonary disease. Overall debility and muscle deconditioning related to current acute illness and management. 2. Resolving area of atelectasis. The bronchial washing culture for the patient was noted no bacterial isolation. PLAN OF TREATMENT: All the antibiotic, which was started intravenously will be discontinued. She will be started on oral doxycycline 100 mg b.i.d. and also tapering dose of prednisone to complete the treatment of acute exacerbation of COPD. Physical therapy would be ordered for this patient to help with the muscle deconditioning. Consider discharge home for the patient possibly in the [place], [place] REPORT OF CONSULTATION NAME: ZAHIDA MCKEON UNIT #: [id number] ROOM: 425 DOCTOR: JULIA MAST MD BIRTHDATE: [birth year] morning depending on further improvement with all the arrangements to be made for this patient for the availability of all the home medications, oxygen and other needs. All other supportive therapy, plan of management and care. Usual treatment. Additional treatment changes to be made for the patient based on the progression of the illness. JULIA MITCHELL MD CM:CONSTR:REPORT OF CONSULTATION 1118 08/26/17 0210 interface
--- NOTE | ~2017-08-24 | EKG ---
[place], [place] ELECTROCARDIOGRAM REPORT NAME: ZAHIDA MCKEON UNIT #: [id number] ROOM: 425 DOCTOR: PAULA WALTERS MD,JULIA BIRTHDATE: [birth year] DOS: 08/24/2017 The electrocardiogram done 08/24/2017 for the patient at 3:51 p.m. Normal sinus rhythm noted. Heart rate 76 beats per minute, otherwise normal echocardiogram. JULIA MITCHELL MD CM:EKGRPT:ELECTROCARDIOGRAM REPORT [id number] JULIA WALTERS MD
[~2017-08-24 15:13] MED LIST changes: +FEROSUL325 MG PO; +LEVAQUIN500 M2 PO; +MUCINEX ER600 MG PO
[2017-08-24 15:49] VITALS: BP 163/93
[2017-08-24 15:58] LABS: BASO % 0.1 % (0.0-1.0); EOS # 0.2 10*3/uL (0.0-0.4); EOS % 1.7 % (1.0-4.0); HEMATOCRIT 30.6 % (37.0-47.0); HEMOGLOBIN 9.4 g/dl (12.0-16.0); LYMPH # 2.2 10*3/uL (1.3-4.4); LYMPH % 25.2 % (27.0-41.0); MEAN CELL VOLUME 91.6 fl (81.0-99.0); MEAN CORPUSCULAR HGB 28.1 pg (27.0-31.0); MEAN CORPUSCULAR HGB CONC 30.7 g/dl (33.0-37.0); MONO # 1.1 10*3/uL (0.1-1.0); MONO % 11.8 % (3.0-9.0); NEUT # 5.4 10*3/uL (2.3-7.9); NEUT % 60.4 % (47.0-73.0); PLATELET COUNT AUTOMATED 329 10*3/uL (130-400); RED BLOOD COUNT 3.34 10*6/uL (4.10-5.10); RED CELL DISTRI WIDTH 14.1 % (0-14.5); WHITE BLOOD COUNT 8.9 10*3/uL (4.8-10.8)
[2017-08-24 16:09] LABS: ACT PARTIAL THROMBO TIME 24.2 SECONDS (20.8-31.5); INTERNATIONAL NORM RATIO 1.1 (2.0-3.5)
[2017-08-24 16:16] LABS: BUN 11 mg/dl (7-24); CHLORIDE 100 mmol/L (98-107); CREATININE 0.74 mg/dL (0.55-1.02); LIPASE 67 U/L (73-393); POTASSIUM 3.3 mmol/L (3.5-5.1); SGOT/AST 9 IU/L (3-35); SGPT/ALT 22 U/L (12-78); SODIUM 142 mmol/L (136-145); TOTAL PROTEIN 5.9 gm/dL (6.4-8.2)
[2017-08-24 16:17] LABS: ALKALINE PHOSPHATASE 59 U/L (45-117); TROPONIN I 0.028 ng/ml (<0.045)
--- NOTE | 2017-08-24 17:56 | NUR ---
TRIED TO CALL REPORT TO 4E, WAS TOLD NURSE IS WORKING ON STAFFING AND WOULD CALL BACK IN A FEW MINUTES
[2017-08-24 18:20] VITALS: BP 152/78
--- NOTE | 2017-08-24 18:20 | NUR ---
Time: 1819 A 72 year old FEMALE admitted to under services of GINI EDWARDS DO. Pt. arrived via bed from ER. Chief complaint: RIGHT MIDDLE LOBE PNEUMONIA, COPD WITH ACUTE EXACERBATION. MIYA GRECO
[2017-08-24] MEDS ORDERED: PROZAC40 M1 PO (18:34)
[2017-08-24] MEDS ORDERED: ANORO ELLIPTA1 EACH INH (18:36)
--- NOTE | 2017-08-24 19:05 | NUR ---
CALLED DR. ARORA MADE AWARE MEDICATIONS VERIFIED.
--- NOTE | 2017-08-24 19:40 | NUR ---
PT. AWAKE, ALERT AND ORIENTED X 3 AT THIS TIME. LUNGS DIMINISHED T/O, EXPIRATORY WHEEZE ON AUSCULTATION, DENIES SOB ON 3L NC. HRR, PPP, TRACE EDEMA TO BLE. BOWEL SOUNDS NORMO X 4 QUADS, DENIES NVD. PT. AMBULATORY WITH STEADY GAIT. CALL LIGHT WITHIN REACH, BED IN LOWEST POSITION, WHEELS LOCKED.
[2017-08-25] VITALS: BP 158/76
[2017-08-25 06:33] LABS: BASO % 0.2 % (0.0-1.0); EOS # 0.2 10*3/uL (0.0-0.4); EOS % 3.5 % (1.0-4.0); HEMATOCRIT 28.5 % (37.0-47.0); HEMOGLOBIN 8.6 g/dl (12.0-16.0); LYMPH # 2.1 10*3/uL (1.3-4.4); MEAN CELL VOLUME 91.1 fl (81.0-99.0); MEAN CORPUSCULAR HGB 27.5 pg (27.0-31.0); MEAN CORPUSCULAR HGB CONC 30.2 g/dl (33.0-37.0); MEAN PLATELET VOLUME 9.5 fl (9.6-12.3); MONO # 0.9 10*3/uL (0.1-1.0); MONO % 13.3 % (3.0-9.0); NEUT # 3.3 10*3/uL (2.3-7.9); NEUT % 49.9 % (47.0-73.0); PLATELET COUNT AUTOMATED 310 10*3/uL (130-400); RED BLOOD COUNT 3.13 10*6/uL (4.10-5.10); RED CELL DISTRI WIDTH 14.3 % (0-14.5); WHITE BLOOD COUNT 6.6 10*3/uL (4.8-10.8)
[2017-08-25 06:45] LABS: ALBUMIN 2.6 gm/dl (3.1-4.5); ALKALINE PHOSPHATASE 54 U/L (45-117); BUN 10 mg/dl (7-24); CHLORIDE 101 mmol/L (98-107); CREATININE 0.79 mg/dL (0.55-1.02); POTASSIUM 3.8 mmol/L (3.5-5.1); SGOT/AST 8 IU/L (3-35); SGPT/ALT 20 U/L (12-78); SODIUM 142 mmol/L (136-145); TOTAL PROTEIN 5.4 gm/dL (6.4-8.2)
--- NOTE | 2017-08-25 07:28 | NUR ---
24 HR chart check completed.
[2017-08-25 08:00] VITALS: BP 154/83
--- NOTE | 2017-08-25 08:30 | NUR ---
Clinical Cytogenetics Director in to talk to patient. Patient states lives at HOME with HER GRANDCHILDREN. There are 12 steps in the home. Physician: JANET JACQUES Pharmacy: [facility] Home health services: NONE Patient's level of ADLs: MINIMAL ASSIST Patient has working utilities: YES DME: O2 FROM [facility] STATES NEEDS BIGGER CONCENTRATOR AND IT WILL BE BROUGHT TOMORROW. BUT SHE DOES HAVE O2 AT HOME Follow-up physician's appointment after d/c: WILL BE MADE PRIOR TO DC Does patient want to access PORTAL?: Discharge plan HOME. JOVITA SAHU
[2017-08-25 12:00] VITALS: BP 134/53
--- NOTE | 2017-08-25 13:15 | NUR ---
PHYSICAL THERAPY PAtient requests no PT at this time. Thank you for this referral. Blanche Oconnell,PT
[2017-08-25 16:00] VITALS: BP 156/66
[2017-08-25 20:00] VITALS: BP 143/69
[2017-08-26] VITALS: BP 134/63
--- NOTE | 2017-08-26 07:42 | NUR ---
In to see patient to discuss visiting nurses upon discharge. Patient agreed, presented list of agencies, patient chose [facility]. Received order, will fax referral.
--- NOTE | 2017-08-26 07:48 | NUR ---
faxed referral to [facility] to start visiting nurses upon discharge.
[2017-08-26 08:00] VITALS: BP 151/87
--- NOTE | 2017-08-26 09:17 | NUR ---
PHYSICAL THERAPY PAtient evaluatd on 4, full evaluation to follow. Dr. Waddell came in to assess patient during evaluation and d/c patient to home. Recommend home health RN and PT prn. PAtient is low complexity via chart review, tests and evaluation. Thank you for this referral. Blanche Brian,PT
[2017-08-26] MEDS ORDERED: DOXYCYCLINE100 M3 PO (11:31)
[2017-08-26] MEDS ORDERED: PREDNISONE10 MG PO (11:31)
[2017-08-26 12:00] VITALS: BP 156/74
--- NOTE | 2017-08-26 13:26 | NUR ---
DISCHARGED AT THIS TIME. IV REMOVED AND PRESSURE DRESSING APPLIED. VERBALIZED UNDERSTANDING OF DISCHARGE INSTRUCTIONS.
== END 2017-08-26 13:26 | disposition home health service (06) | DRG 190 ==
LOC: ED 15:13 → EDHOLD 17:32 → 4E 17:32
PROVIDERS: Internal Medicine; Nurse Practitioner Family; ADMIT Internal Medicine
DX: J44.1 Chronic obstructive pulmonary disease with (acute) exacerbation (principal); J18.1 Lobar pneumonia, unspecified organism; E44.0 Moderate protein-calorie malnutrition; I11.0 Hypertensive heart disease with heart failure; J96.10 Chronic respiratory failure, unspecified whether with hypoxia or hypercapnia; I50.30 Unspecified diastolic (congestive) heart failure; J44.0 Chronic obstructive pulmonary disease with (acute) lower respiratory infection; I48.0 Paroxysmal atrial fibrillation; F41.9 Anxiety disorder, unspecified; F32.9 Major depressive disorder, single episode, unspecified; E78.5 Hyperlipidemia, unspecified; E55.9 Vitamin D deficiency, unspecified; F17.210 Nicotine dependence, cigarettes, uncomplicated; E66.9 Obesity, unspecified; Z98.51 Tubal ligation status; Z68.33 Body mass index [BMI] 33.0-33.9, adult; Z79.01 Long term (current) use of anticoagulants; Z79.82 Long term (current) use of aspirin; Z79.899 Other long term (current) drug therapy; Z99.81 Dependence on supplemental oxygen; Z98.42 Cataract extraction status, left eye; Z81.1 Family history of alcohol abuse and dependence; Z80.8 Family history of malignant neoplasm of other organs or systems

== ENCOUNTER 2017-09-27 15:39 | Inpatient (IN) | payer MEDICARE, OTHER ==
[~2017-09-27] VITALS: Ht 167.6 cm; Wt 93.7 kg
--- NOTE | ~2017-09-27 | PR ---
[place], [place] PROGRESS NOTE NAME: ZAHIDA MCKEON UNIT #: [id number] ROOM: 507 DOCTOR: PAULA WALTERS MD,JULIA BIRTHDATE: [birth year] DOS: 10/01/2017 SUBJECTIVE: The patient was seen and examined [id number] encounter for this addendum. History was confirmed. Physical examination performed. The assessment and management of the patient was done today and recommendation treatment personally made by the note done by the medical i d sales, was approved. She has been showing progressive reduction and improvement in respiratory symptom reduction of cough. The patient has been known with home oxygen use at home. The patient was not discharged home. PHYSICAL EXAMINATION: VITAL SIGNS: For the patient which has been recorded shows a normal temperature, respiratory rate 18, blood pressure 164/86. The pulse oxygen saturation 3 liters nasal cannula 99% saturation. LUNGS: Noted without any wheeze or crackles. ABDOMEN: Soft, obese, nontender. PLAN OF TREATMENT: The patient could be considered for home discharge today on tapering dose of prednisone, oral antibiotic, continue with the home oxygen. The patient other treatment with outpatient followup in the next 2-3 weeks was suggested. JULIA MITCHELL MD CM:PNTRANS [phone] JULIA WALTERS MD 10/02/17 0157 interface
--- NOTE | ~2017-09-27 | PR ---
[place], [place] PROGRESS NOTE NAME: ZAHIDA MCKEON UNIT #: [id number] ROOM: 506 DOCTOR: JULIA MAST MD BIRTHDATE: [birth year] DOS: 09/30/2017 ADDENDUM SUBJECTIVE: The patient was independently seen today with [id number] encounter, history was confirmed. Physical examination was performed. All the labs were reviewed. Assessment for today's note was completed, any changes in the medical management done for today personally as well. Note done by the medical consultant, was approved. The patient has been doing very well. Still noted symptoms of dyspnea with exertion, but slow improvement has been continued. There was no coughing and wheezing described. There was no chest pain. OBJECTIVE: VITAL SIGNS: Reviewed. Mild LV systolic pressure of 68, otherwise normal vital signs. Pulse oxygen saturation on 3 liters nasal cannula 98% saturation recorded. HEENT: No acute change. Chronic obesity. CARDIOVASCULAR: S1, S2 audible. LUNGS: Moderate reduction of the breath sounds in the lungs. There was no significant wheezing. ABDOMEN: Soft, nontender. EXTREMITIES: Shows chronic obesity. IMPRESSION: 1. The patient with exacerbation of chronic obstructive pulmonary disease with gradual resolution was noted. 2. Shortness of breath with exertion. 3. Resolving exacerbation of chronic obstructive pulmonary disease. 4. Acute tracheobronchitis. 5. Dyspnea with exertion. PLAN OF TREATMENT: The patient has been ordered the home oxygen ____ to assess for any need of oxygen supplementation, may be contributing to the patient's shortness of breath. Tapering dose of prednisone. Antibiotic will be prescribed. [place], [place] PROGRESS NOTE NAME: ZAHIDA MCKEON UNIT #: [id number] ROOM: 506 DOCTOR: JULIA MAST MD BIRTHDATE: [birth year] JULIA MITCHELL MD CM:PNTRANS [phone] JULIA WALTERS MD 09/30/172004 interface
--- NOTE | ~2017-09-27 | CON ---
[place], [place] REPORT OF CONSULTATION NAME: ZAHIDA MCKEON UNIT #: [id number] ROOM: 506 DOCTOR: TREMAINE RICHARDS MD BIRTHDATE: [birth year] DOS: 09/30/2017 HISTORY OF PRESENT ILLNESS: This is a 72-year-old patient, who is known with aggressive smoking, exacerbation of COPD, anemia, hemoglobin of 6, status post 2 units transfusion with improvement of hemoglobin to 8.6 and 27 hematocrit. The patient has been under pulmonary care. The patient is O2 dependent, short of breath. Blood cultures were negative. Labs on records have been noticed. Pulmonary Medicine, Dr. Waddell has extended her stay since she was short of breath again before discharge. PAST MEDICAL HISTORY: COPD, diabetes mellitus, depression, obesity, anxiety, anemia, and AFib. PAST SURGICAL HISTORY: Tubal ligation and colonoscopy last 2 years. REVIEW OF SYSTEMS: HEENT: Denies double vision, blurred vision. RESPIRATORY: Admits to shortness of breath. CARDIOVASCULAR: Denies chest pain. DIGESTIVE SYSTEM: Anemia, hemoglobin of 6. PHYSICAL EXAMINATION: GENERAL: An obese patient. HEENT: Benign. NECK: Supple. LUNGS: Extremely poor air exchange. Decreased air entry bilaterally. HEART: Normal sinus rhythm. No gallop, no murmur. ABDOMEN: Obese, soft. No hepato-organomegaly. Bowel sounds present. EXTREMITIES: Benign. NEUROLOGIC: Alert and oriented to time, place, and person. IMPRESSION: Exacerbation of chronic obstructive pulmonary disease, severe anemia, on Xarelto and aspirin, status post multi-transfusion. PLAN: Continuation with PPI. Outpatient EGD when she is stable. TREMAINE RICHARDS MD CM:CONSTR:REPORT OF CONSULTATION 1855 10/01/17 0314 interface
--- NOTE | ~2017-09-27 | PR ---
[place], [place] PROGRESS NOTE NAME: ZAHIDA MCKEON UNIT #: [id number] ROOM: 507 DOCTOR: LAUREL DIAS DO BIRTHDATE: [birth year] DOS: 10/01/2017 SUBJECTIVE: The patient was seen and examined at bedside this morning. The patient has no acute distress. The patient continues with mild dyspnea with exertion, however, notes that her symptoms have been improving. The patient denies cough or wheezing. No chest pain. OBJECTIVE: VITAL SIGNS: Temperature 98.5, pulse is 61, respirations 18, blood pressure 171/87, pulse ox is 99% on 3 liters nasal cannula. GENERAL APPEARANCE: Awake, alert and oriented times 3, no acute distress. HEENT: Eyes are clear. No injection. Nares are patent. Mucous membranes are moist. RESPIRATORY: Lungs are clear to auscultation with some mild diminished breath sounds in all lung chapplel. No wheezing, rales or rhonchi. CARDIOVASCULAR: S1, S2 appreciated. Regular rate and rhythm, no murmurs, gallops or rubs. ABDOMEN: Soft, nontender with positive bowel sounds. EXTREMITIES: Show no edema, no erythema, no clubbing, no cyanosis. NEUROLOGIC: Negative for focal deficits. LABORATORY DATA: White count 8.5, hemoglobin 8.7, hematocrit 28.9, platelets count 322. BMP was reviewed was normal except for mildly elevated glucose of 201. Liver enzymes were normal. Albumin 3.1. Blood cultures remain negative. IMPRESSION: 1. Resolving acute on chronic exacerbation of chronic obstructive pulmonary disease. 2. Shortness of breath with exertion. 3. Tracheobronchitis. 4. Dyspnea with exertion. PLAN OF CARE: The patient is cleared from a pulmonary standpoint for discharge, can continue steroids and antibiotic treatment outpatient and follow up with Dr. Mitchell in his office in 1-2 weeks. No change in current care if patient remains in the hospital for another day. We will continue to follow. LAUREL DIAS DO [place], [place] PROGRESS NOTE NAME: ZAHIDA MCKEON UNIT #: [id number] ROOM: 507 DOCTOR: LAUREL DIAS DO BIRTHDATE: [birth year] JULIA MITCHELL MD CM:MARIALUISA [id number] LAUREL DIAS DO 10/02/17 0457 interface
--- NOTE | ~2017-09-27 | PR ---
[place], [place] PROGRESS NOTE NAME: ZAHIDA MCKEON UNIT #: [id number] ROOM: 506 DOCTOR: LAUREL DIAS DO BIRTHDATE: [birth year] DOS: 09/30/2017 SUBJECTIVE: The patient was seen and examined at bedside. The patient was sitting upright in no acute distress. The patient reports that she feels a bit better and that she is ready for discharge home, feels like her breathing has improved. No new complaints at this time. OBJECTIVE: VITAL SIGNS: Temperature 97.8, pulse is 65, respirations 20, blood pressure 168/84, pulse ox is 98% on 3 liters nasal cannula. GENERAL APPEARANCE: The patient alert and oriented times 3. No acute distress. HEENT: Eyes are clear. No injection. Nares are patent. Mucous membranes are moist. NECK: Supple, nontender. CARDIOVASCULAR: Regular rate and rhythm, no murmurs, gallops or rubs. PULMONARY: Without crackles, rales, rhonchi. Mild expiratory wheezing noted all lung chappell. ABDOMEN: Soft, nontender with positive bowel sounds. EXTREMITIES: Without deformities. NEUROLOGIC: Negative for focal deficits LABORATORY DATA: White count is 10.3, hemoglobin 8.6, hematocrit 27.7, platelets 305, BMP was negative except for mildly elevated carbon dioxide of 36, glucose 177, calcium 9.1. Blood cultures remain negative. IMPRESSION: 1. Acute on chronic obstructive pulmonary disease, atelectasis in the lower lung -- improving. 2. Mucus impaction. 3. Nicotine dependence. The patient quit smoking in 2017. 4. Obesity. 5. obstructive sleep apnea. PLAN OF CARE: The patient clinically stable at this time, can continue her care outpatient, continue with antibiotics, bronchodilators and steroid taper, no change in current plan at this time. The patient is okay to be discharged from a pulmonary standpoint. We will continue to follow. LAUREL DIAS DO [place], [place] PROGRESS NOTE NAME: ZAHIDA MCKEON UNIT #: [id number] ROOM: 506 DOCTOR: LAUREL DIAS DO BIRTHDATE: [birth year] JULIA MITCHELL MD CM:PNJAYESH [phone] LAUREL DIAS DO 09/30/17 1548 interface
--- NOTE | ~2017-09-27 | PR ---
[place], [place] PROGRESS NOTE NAME: ZAHIDA MCKEON UNIT #: [id number] ROOM: 507 DOCTOR: PAULA WALTERS MD,JULIA BIRTHDATE: [birth year] DOS: 09/29/2017 SUBJECTIVE: She has been noted ____ shortness of breath. This is described as shortness of breath with walking. Denied chest pain. Coughing has been improving. There were no symptoms of chest pain or hemoptysis. OBJECTIVE: VITAL SIGNS: The patient has normal temperature, respiratory rate 18, heart rate of 66, blood pressure 148/71, pulse, oxygen saturation on 3 liters nasal cannula 98% saturation. HEENT: No acute change. NECK: Supple. Chronic obesity. CARDIOVASCULAR: S1, S2 audible. LUNGS: Scattered expiratory wheezing. No crackles. ABDOMEN: Soft, obese, nontender. EXTREMITIES: Without any edema. LABORATORY DATA: The patient's CMP; glucose 165, BUN and creatinine was normal. Blood culture, the patient noted no bacterial growth. CBC of the patient's; hemoglobin 7.8, hematocrit 25.6, platelet count 336,000. PLAN OF MANAGEMENT: The patient would be continued at this time on the current treatment for acute exacerbation of COPD, acute bronchitis, showing gradual and progressive improvement in the respiratory symptoms. Continue Solu-Medrol 40 mg b.i.d. Continue ambulation. Continue oxygen supplementation. Other treatment plan and management per usual care of supportive therapy and care. JULIA MITCHELL MD CM:PNTRANS [phone] JULIA WALTERS MD 10/02/17 0426 interface
--- NOTE | ~2017-09-27 | CON ---
[place], [place] REPORT OF CONSULTATION NAME: ZAHIDA MCKEON UNIT #: [id number] ROOM: 506 DOCTOR: JULIA MAST MD BIRTHDATE: [birth year] DOS: 09/28/2017 CONSULTATION REQUESTED BY: Hospitalist service for assessment of COPD exacerbation. HISTORY OF PRESENT ILLNESS: This is a 72-year-old white female patient who has been admitted to the hospital for the assessment of symptoms of increased shortness of breath occurring for the past few days. The patient has been hospitalized yesterday for further medical management. The patient denies symptoms of chest pain. She does have some cough, which has been noted mild to moderate without any sputum expectoration. Denies symptoms of chest pain or hemoptysis. The patient noted general weakness and fatigue along with the symptoms. Wheezing was described intermittently. There were no symptoms of acute chest pain or pleurisy. REVIEW OF SYSTEMS: CONSTITUTIONAL: Noted fatigue and tiredness and symptoms of fever and chills. EYES: Denies any burning, redness, or tenderness. EARS, NOSE, AND THROAT: Denies sore throat, otalgia, postnasal drainage or epistaxis. CARDIOVASCULAR: Denies anginal pain, edema or pain of the lower extremity. GASTROINTESTINAL: Denies dysphagia, nausea, vomiting, diarrhea, abdominal pain, hematemesis, melena, or hematochezia. Denies any dysphagia or abnormal weight loss history. SKIN: Denies lesions or rashes. MUSCULOSKELETAL: No acute joint pain, redness, or tenderness. CENTRAL NERVOUS SYSTEM: No dizziness, headache, diplopia or syncopal episodes. Remaining systems were reviewed with the patient, they were noted all negative. PAST MEDICAL HISTORY: 1. The patient was noted with hospitalization in 08/2017. The patient was managed at that time for the acute exacerbation of COPD and/or debility. The patient has improved and noted the baseline prior to the current acute illness. At that time, the patient also required therapeutic bronchoscopy. 2. History of severe COPD. 3. History of supraventricular tachycardia. 4. Depression. 5. Hyperlipidemia. 6. Essential hypertension. 7. Chronic obesity. 8. Type 2 diabetes mellitus. 9. Atrial fibrillation, on chronic anticoagulation. PAST SURGICAL HISTORY: Tubal ligation. SOCIAL HISTORY: The patient is currently , has 2 children. Denies history of alcohol use or any illicit drugs. Tobacco noted since teenager and smoked half a pack or less of cigarettes per day, which has been discontinued since August 2017. Denies history of alcohol use, illicit drug use or [place], [place] REPORT OF CONSULTATION NAME: ZAHIDA MCKEON UNIT #: [id number] ROOM: 506 DOCTOR: JULIA MAST MD BIRTHDATE: [birth year] occupation related pulmonary exposure. FAMILY HISTORY: Father at the age of 6969 years old with complication related to the cancer. Mother at the age of 5656 years old with complications of chronic alcoholism. MEDICATIONS: Current administered medication were noted as use of Lipitor, amitriptyline, ferrous sulfate, Xarelto, fluoxetine, vitamin D, chewable aspirin, Incruse Ellipta, metoprolol tartrate, Levaquin, and other p.r.n. medications administered. The patient has been given vancomycin and Zosyn yesterday as well that has been discontinued earlier today by the primary care attending. DRUG ALLERGY HISTORY: Noted as no known drug allergies. PHYSICAL EXAMINATION: GENERAL: This is a 72-year-old white female who has been currently noted comfortably resting on the bed without any acute distress. The oxygen supplementation used by the patient is nasal cannula. Height of 5 feet 6 inches, weight of 206 pounds, BMI 33.2. VITAL SIGNS: Normal temperature, respirations 18-20, heart 95-69, blood pressure 160/65-150/78. Pulse oxygen saturation on 3 liters cannula 97% saturation. HEENT: Head was atraumatic. Eyes nonicterus. NECK: Supple. CARDIOVASCULAR: S1, S2 audible. LUNGS: Without any crackles. Decreased breath sounds are noted with expiratory wheezing. ABDOMEN: Soft and obese. EXTREMITIES: Without any edema, clubbing or cyanosis. MUSCULOSKELETAL: No deformities. SKIN: Visible skin. No lesions or rashes. CENTRAL NERVOUS SYSTEM: Intact without any focal deficit. Cranial nerves 2-12 intact. LABORATORY DATA: Lactic acid yesterday noted normal. Influenza rapid A and B, nasal washing antigen negative. CBC yesterday, hemoglobin 6.7, hematocrit 23.2, WBC count normal, platelet count was normal. The CMP that was done on the of this month, normal BUN and creatinine. The CMP that was done on 09/27/2017, glucose 142, BUN and creatinine normal, CO2 of 34. The CBC of the patient after packed RBC blood transfusion, hemoglobin is 7.7, hematocrit 25.8, WBC count normal, platelet count was normal. PT/INR was noted normal for the patient this morning. CBC this morning, WBC count normal, hemoglobin 7.7, hematocrit 25.1. CMP this morning, BUN 14, creatinine normal, glucose 164. Remaining electrolytes were normal. Blood culture on the 12th of this month in the Emergency Room was noted without any abnormal bacterial growth. Urine culture, no bacterial growth, final results. Chest x-ray of the patient that was done this morning noted cardiomegaly without any acute infiltration. The chest x-ray on the in the Emergency Room was noted, possible infiltration in the lower lung and right middle lobe. [place], [place] REPORT OF CONSULTATION NAME: ZAHIDA MCKEON UNIT #: [id number] ROOM: 506 DOCTOR: JULIA MAST MD BIRTHDATE: [birth year] IMPRESSION: 1. The patient has been currently admitted to the hospital for the management of acute exacerbation of COPD. Area of atelectasis in lower lung, right middle lobe seems to be improving. 2. Mucus impaction. 3. Past history of nicotine dependence with tobacco cessation in August 2017. 4. Chronic severe obesity as well. 5. Clinical suspicion of obstructive sleep apnea disorder. PLAN OF TREATMENT: Agree with the use of the antibiotics, bronchodilators and oxygen supplementation. The patient will be ordered corticosteroid as Solu-Medrol 40 mg b.i.d. Other supportive therapy, plan of management to continue. Oxygen supplementation in case of hypoxia. Other supportive plan of management as previously in progress. Usual care. Additional treatment changes will be made based on progression of the illness. Monitor respiratory status closely. Rapid improvement in chest x-ray is not noted consistent with evidence of acute pneumonia. JULIA MITCHELL MD CM:CONSTR:REPORT OF CONSULTATION [id number] 09/29/17 0013 interface
--- NOTE | ~2017-09-27 | EKG ---
[place], [place] ELECTROCARDIOGRAM REPORT NAME: ZAHIDA MCKEON UNIT #: [id number] ROOM: 506 DOCTOR: PAULA WALTERS MD,JULIA BIRTHDATE: [birth year] DOS: 09/27/2017 TIME: Done at 3:50 p.m. Low voltage EKG was noted with normal sinus rhythm with heart rate of 63 beats per minute. Nonspecific ST-T changes were noted in the chest leads. JULIA MITCHELL MD CM:EKGRPT:ELECTROCARDIOGRAM REPORT [id number] JULIA WALTERS MD
[2017-09-27 15:39] VITALS: BP 169/79
[~2017-09-27 15:39] MED LIST changes: +ANORO ELLIPTA1 EACH INH; +DOXYCYCLINE100 M3 PO; +LEVOFLOXACIN500 MG PO; +PROZAC40 M1 PO
[2017-09-27 16:12] VITALS: BP 153/87
[2017-09-27 16:29] LABS: BASO % 0.4 % (0.0-1.0); EOS # 0.1 10*3/uL (0.0-0.4); EOS % 2.5 % (1.0-4.0); HEMATOCRIT 23.2 % (37.0-47.0); HEMOGLOBIN 6.7 g/dl (12.0-16.0); LYMPH # 1.8 10*3/uL (1.3-4.4); LYMPH % 30.9 % (27.0-41.0); MEAN CELL VOLUME 86.6 fl (81.0-99.0); MEAN CORPUSCULAR HGB CONC 28.9 g/dl (33.0-37.0); MEAN PLATELET VOLUME 8.9 fl (9.6-12.3); MONO # 0.8 10*3/uL (0.1-1.0); MONO % 13.7 % (3.0-9.0); NEUT % 52.3 % (47.0-73.0); PLATELET COUNT AUTOMATED 284 10*3/uL (130-400); RED BLOOD COUNT 2.68 10*6/uL (4.10-5.10); RED CELL DISTRI WIDTH 14.4 % (0-14.5); WHITE BLOOD COUNT 5.7 10*3/uL (4.8-10.8)
[2017-09-27 16:45] LABS: ALKALINE PHOSPHATASE 79 U/L (45-117); BUN 9 mg/dl (7-24); CHLORIDE 103 mmol/L (98-107); CREATININE 0.72 mg/dL (0.55-1.02); POTASSIUM 4.1 mmol/L (3.5-5.1); SGOT/AST 19 IU/L (3-35); SGPT/ALT 24 U/L (12-78); SODIUM 142 mmol/L (136-145); TOTAL PROTEIN 6.1 gm/dL (6.4-8.2)
[2017-09-27 16:46] LABS: TROPONIN I < 0.015 ng/ml (<0.045)
[2017-09-27 17:03] LABS: ACT PARTIAL THROMBO TIME 27.1 SECONDS (20.8-31.5); INTERNATIONAL NORM RATIO 1.1 (2.0-3.5)
[2017-09-27 17:05] VITALS: BP 131/80; BP 144/77
[2017-09-27 20:00] VITALS: BP 151/72; BP 166/65
[2017-09-27 21:15] VITALS: BP 160/82
[2017-09-27 23:18] LABS: BASO % 0.4 % (0.0-1.0); HEMATOCRIT 25.8 % (37.0-47.0); HEMOGLOBIN 7.7 g/dl (12.0-16.0); LYMPH # 0.5 10*3/uL (1.3-4.4); LYMPH % 8.6 % (27.0-41.0); MEAN CELL VOLUME 85.7 fl (81.0-99.0); MEAN CORPUSCULAR HGB 25.6 pg (27.0-31.0); MEAN CORPUSCULAR HGB CONC 29.8 g/dl (33.0-37.0); MEAN PLATELET VOLUME 9.4 fl (9.6-12.3); MONO # 0.1 10*3/uL (0.1-1.0); MONO % 1.5 % (3.0-9.0); NEUT # 4.9 10*3/uL (2.3-7.9); NEUT % 88.8 % (47.0-73.0); NUCLEATED RED BLOOD CELL 0.4 % (0.0-0.0); PLATELET COUNT AUTOMATED 290 10*3/uL (130-400); RED BLOOD COUNT 3.01 10*6/uL (4.10-5.10); RED CELL DISTRI WIDTH 14.3 % (0-14.5); WHITE BLOOD COUNT 5.5 10*3/uL (4.8-10.8)
[2017-09-28] VITALS: BP 155/72
[2017-09-28 05:58] LABS: BASO % 0.2 % (0.0-1.0); HEMATOCRIT 25.1 % (37.0-47.0); HEMOGLOBIN 7.7 g/dl (12.0-16.0); LYMPH % 17.3 % (27.0-41.0); MEAN CELL VOLUME 84.5 fl (81.0-99.0); MEAN CORPUSCULAR HGB 25.9 pg (27.0-31.0); MEAN CORPUSCULAR HGB CONC 30.7 g/dl (33.0-37.0); MEAN PLATELET VOLUME 9.7 fl (9.6-12.3); MONO # 0.2 10*3/uL (0.1-1.0); MONO % 3.5 % (3.0-9.0); NEUT # 4.3 10*3/uL (2.3-7.9); NEUT % 78.1 % (47.0-73.0); NUCLEATED RED BLOOD CELL 0.4 % (0.0-0.0); PLATELET COUNT AUTOMATED 313 10*3/uL (130-400); RED BLOOD COUNT 2.97 10*6/uL (4.10-5.10); RED CELL DISTRI WIDTH 14.5 % (0-14.5); WHITE BLOOD COUNT 5.5 10*3/uL (4.8-10.8)
[2017-09-28 06:10] LABS: INTERNATIONAL NORM RATIO 1.1 (2.0-3.5)
[2017-09-28 06:12] LABS: ALBUMIN 2.9 gm/dl (3.1-4.5); ALKALINE PHOSPHATASE 74 U/L (45-117); BUN 14 mg/dl (7-24); CHLORIDE 101 mmol/L (98-107); CHOLESTEROL 149 mg/dL (<200); CREATININE 0.82 mg/dL (0.55-1.02); FREE T4 0.98 ng/dl (0.76-1.46); HDL CHOLESTEROL 77 mg/dl (40-60); LDL CHOLESTEROL 61 mg/dL (9-159); PHOSPHOROUS 3.6 mg/dL (2.5-4.9); POTASSIUM 4.1 mmol/L (3.5-5.1); SGOT/AST 23 IU/L (3-35); SGPT/ALT 26 U/L (12-78); SODIUM 140 mmol/L (136-145); TOTAL PROTEIN 6.1 gm/dL (6.4-8.2); TRIGLYCERIDES 56 mg/dl (<150); VLDL CHOLESTEROL 11 mg/dL (6-40)
[2017-09-28 06:16] LABS: THYROID STIM HORMONE (HS) 0.676 uIU/ml (0.358-4.75)
[2017-09-28 07:37] LABS: VITAMIN D, 25-HYDROXY 31.8 ng/mL (30-100)
[2017-09-28 08:00] VITALS: BP 150/78
[2017-09-28 10:17] VITALS: BP 155/75
[2017-09-28 12:00] VITALS: BP 153/67
[2017-09-28 16:00] VITALS: BP 156/76; BP 172/76
[2017-09-28 20:00] VITALS: BP 157/81
[2017-09-29] VITALS (11 sets, daily range): BP systolic 131–171; BP diastolic 67–81
[2017-09-29 06:35] LABS: BASO % 0.2 % (0.0-1.0); HEMATOCRIT 25.6 % (37.0-47.0); HEMOGLOBIN 7.8 g/dl (12.0-16.0); LYMPH # 1.1 10*3/uL (1.3-4.4); LYMPH % 10.2 % (27.0-41.0); MEAN CELL VOLUME 85.3 fl (81.0-99.0); MEAN CORPUSCULAR HGB CONC 30.5 g/dl (33.0-37.0); MEAN PLATELET VOLUME 9.6 fl (9.6-12.3); MONO # 0.8 10*3/uL (0.1-1.0); MONO % 7.4 % (3.0-9.0); NEUT # 8.4 10*3/uL (2.3-7.9); NUCLEATED RED BLOOD CELL 0.4 % (0.0-0.0); PLATELET COUNT AUTOMATED 336 10*3/uL (130-400); RED CELL DISTRI WIDTH 14.9 % (0-14.5); WHITE BLOOD COUNT 10.5 10*3/uL (4.8-10.8)
[2017-09-29 07:01] LABS: ALBUMIN 3.1 gm/dl (3.1-4.5); ALKALINE PHOSPHATASE 72 U/L (45-117); BUN 16 mg/dl (7-24); CHLORIDE 105 mmol/L (98-107); CREATININE 0.75 mg/dL (0.55-1.02); POTASSIUM 4.4 mmol/L (3.5-5.1); SGOT/AST 14 IU/L (3-35); SGPT/ALT 23 U/L (12-78); SODIUM 141 mmol/L (136-145); TOTAL PROTEIN 6.3 gm/dL (6.4-8.2)
[2017-09-29 16:09] LABS: BILIRUBIN NEGATIVE (NEGATIVE); BLOOD NEGATIVE (NEGATIVE); CLARITY SL CLOUDY (CLEAR); COLOR YELLOW (YELLOW); GLUCOSE NEGATIVE (NEGATIVE); KETONE NEGATIVE (NEGATIVE); LEUKO ESTERASE NEGATIVE (NEGATIVE); NITRITE NEGATIVE (NEGATIVE); SPECIFIC GRAVITY 1.025 (1.005-1.030); UROBILINOGEN 0.2 E.U./dl (0.2-1.0)
[2017-09-29 16:17] LABS: BACTERIA 1+; RBC 0-2 rbc/hpf (0-2); WBC 0-2 wbc/hpf (0-5)
[2017-09-30] VITALS: BP 137/61
[2017-09-30 06:16] LABS: HEMATOCRIT 27.7 % (37.0-47.0); HEMOGLOBIN 8.6 g/dl (12.0-16.0); MEAN CELL VOLUME 85.5 fl (81.0-99.0); MEAN CORPUSCULAR HGB 26.5 pg (27.0-31.0); MEAN PLATELET VOLUME 9.2 fl (9.6-12.3); NUCLEATED RED BLOOD CELL 0.3 % (0.0-0.0); PLATELET COUNT AUTOMATED 305 10*3/uL (130-400); RED BLOOD COUNT 3.24 10*6/uL (4.10-5.10); WHITE BLOOD COUNT 10.3 10*3/uL (4.8-10.8)
[2017-09-30 06:47] LABS: BUN 19 mg/dl (7-24); CHLORIDE 103 mmol/L (98-107); CREATININE 0.83 mg/dL (0.55-1.02); POTASSIUM 4.7 mmol/L (3.5-5.1); SODIUM 141 mmol/L (136-145)
[2017-09-30 07:11] LABS: RETICULOCYTE % 1.97 % (0.50-2.50)
[2017-09-30 07:21] LABS: PLATELET SUFFICIENCY NORMAL (NORMAL); POLYCHROMASIA SLIGHT; TOTAL CELLS COUNTED 100 #CELLS
[2017-09-30 08:00] VITALS: BP 164/72
[2017-09-30 12:00] VITALS: BP 168/84
[2017-09-30 16:00] VITALS: BP 160/82
[2017-09-30 20:00] VITALS: BP 166/82
[2017-10-01] VITALS: BP 164/86
[2017-10-01 06:42] LABS: HEMATOCRIT 28.9 % (37.0-47.0); HEMOGLOBIN 8.7 g/dl (12.0-16.0); LYMPH # 0.8 10*3/uL (1.3-4.4); LYMPH % 8.8 % (27.0-41.0); MEAN CELL VOLUME 85.8 fl (81.0-99.0); MEAN CORPUSCULAR HGB 25.8 pg (27.0-31.0); MEAN CORPUSCULAR HGB CONC 30.1 g/dl (33.0-37.0); MEAN PLATELET VOLUME 9.9 fl (9.6-12.3); MONO # 0.7 10*3/uL (0.1-1.0); MONO % 8.5 % (3.0-9.0); NEUT # 6.9 10*3/uL (2.3-7.9); NEUT % 81.4 % (47.0-73.0); PLATELET COUNT AUTOMATED 322 10*3/uL (130-400); RED BLOOD COUNT 3.37 10*6/uL (4.10-5.10); RED CELL DISTRI WIDTH 15.3 % (0-14.5); WHITE BLOOD COUNT 8.5 10*3/uL (4.8-10.8)
[2017-10-01 06:48] LABS: ALBUMIN 3.1 gm/dl (3.1-4.5); ALKALINE PHOSPHATASE 62 U/L (45-117); BUN 20 mg/dl (7-24); CHLORIDE 101 mmol/L (98-107); CREATININE 0.84 mg/dL (0.55-1.02); POTASSIUM 4.1 mmol/L (3.5-5.1); SGOT/AST 8 IU/L (3-35); SGPT/ALT 21 U/L (12-78); SODIUM 140 mmol/L (136-145); TOTAL PROTEIN 6.1 gm/dL (6.4-8.2)
[2017-10-01 08:00] VITALS: BP 171/87
[2017-10-01] MEDS ORDERED: NORVASC5 MG PO (12:15)
[2017-10-01] MEDS ORDERED: DIOVAN80 M1 PO (12:15)
[2017-10-01] MEDS ORDERED: HYDROCHLOROTH12.5 M2 PO (12:17)
[2017-10-01] MEDS ORDERED: FEROSUL325 MG PO (14:16)
[2017-10-01] MEDS ORDERED: PREDNISONE10 MG PO (14:19)
[2017-10-01] MEDS ORDERED: DOXYCYCLINE100 M3 PO (14:19)
[2017-10-01] MEDS ORDERED: OXYGEN NAS (14:21)
== END 2017-10-01 15:15 | disposition home or self-care (01) | DRG 178 ==
LOC: ED 15:39 → 5E 16:54 → EDHOLD 16:54 → 5E 17:10
PROVIDERS: Emergency Medicine; Family Medicine; Hospitalist; Internal Medicine; Internal Medicine Hospice and Palliative Medicine; Nurse Practitioner Family
PROC: 30233N1 Transfusion of Nonautologous Red Blood Cells into Peripheral Vein, Percutaneous Approach (ICD-10-PCS; principal; 2017-09-27)
DX: J15.6 Pneumonia due to other Gram-negative bacteria (principal); J44.0 Chronic obstructive pulmonary disease with (acute) lower respiratory infection; E44.0 Moderate protein-calorie malnutrition; J96.11 Chronic respiratory failure with hypoxia; I11.0 Hypertensive heart disease with heart failure; I50.32 Chronic diastolic (congestive) heart failure; E11.65 Type 2 diabetes mellitus with hyperglycemia; I48.0 Paroxysmal atrial fibrillation; D64.9 Anemia, unspecified; K92.1 Melena; J44.1 Chronic obstructive pulmonary disease with (acute) exacerbation; E55.9 Vitamin D deficiency, unspecified; E66.09 Other obesity due to excess calories; K21.9 Gastro-esophageal reflux disease without esophagitis; F41.9 Anxiety disorder, unspecified; J20.9 Acute bronchitis, unspecified; F32.9 Major depressive disorder, single episode, unspecified; E78.5 Hyperlipidemia, unspecified; Z98.51 Tubal ligation status; Z98.42 Cataract extraction status, left eye; Z72.0 Tobacco use; Z81.1 Family history of alcohol abuse and dependence; Z79.2 Long term (current) use of antibiotics; Z79.01 Long term (current) use of anticoagulants; Z79.82 Long term (current) use of aspirin; Z79.899 Other long term (current) drug therapy; Z80.9 Family history of malignant neoplasm, unspecified; Z68.33 Body mass index [BMI] 33.0-33.9, adult

== ENCOUNTER 2017-10-08 13:42 | Inpatient (IN) | payer MEDICARE, OTHER ==
[~2017-10-08] VITALS: Ht 167.6 cm; Wt 98.4 kg
[2017-10-08] VITALS (11 sets, daily range): BP systolic 119–164; BP diastolic 80–99
--- NOTE | ~2017-10-08 | PR ---
[place], [place] PROGRESS NOTE NAME: ZAHIDA MCKEON UNIT #: [id number] ROOM: 420 DOCTOR: SHAYLA BAER MD BIRTHDATE: [birth year] DOS: 10/11/2017 SUBJECTIVE: The patient was seen today, 10/11/2017 at her bedside. She tells me she is feeling better. She does not notice any palpitations. Her breathing has been under good control. She has not been on a Cardizem drip since yesterday. She seems to be tolerating the increase in metoprolol and digoxin without side effects. PHYSICAL EXAMINATION: VITAL SIGNS: Today, her pulse is 96 and irregularly irregular, blood pressure is 128/76. She is afebrile. NECK: Supple. She has no jugular distention. Carotids are full. LUNGS: Respirations are unlabored. Her chest has decreased breath sounds at the bases, but no wheezes or rales. HEART: Has an irregularly irregular rhythm without murmurs or gallops. ABDOMEN: Benign. EXTREMITIES: Showed no edema. She does seem to be doing much better from a cardiac standpoint. Her heart rate remains at the upper limits of normal. I will increase her metoprolol one more time and check a digoxin level in the morning. If she seems to be doing well, she can probably be discharged within the next [address] Edge for asking our advice regarding her care. Magnesium 2.0. IMPRESSION: 1. Admitted to hospital on this occasion with acute exacerbation of chronic obstructive lung disease. 2. Nonsustained ____ DICTATION ENDS HERE [place], [place] PROGRESS NOTE NAME: ZAHIDA MCKEON UNIT #: [id number] ROOM: 420 DOCTOR: SAHYLA BAER MD BIRTHDATE: [birth year] SHAYLA BAER MD CM:PNTRANS [id number] SHAYLA BAER MD 10/13/17 0216 interface
--- NOTE | ~2017-10-08 | PR ---
[place], [place] PROGRESS NOTE [id number] UNIT #: [id number] ROOM: 420 DOCTOR: SHAYLA BAER MD BIRTHDATE: [birth year] DOS: 10/12/2017 SUBJECTIVE: The patient was seen at her bedside today, 10/12/2017, for followup of her atrial fibrillation and rapid ventricular response. She tells me she feels very well today and is anxious for discharge. She is a 72-year-old woman with a history of atrial fibrillation, who presented with shortness of breath, fatigue and weakness. She was found to be in atrial fibrillation with rapid ventricular response. Recently, she was in the hospital for pneumonia and anemia. She was treated for all of these issues and improved. She is on Xarelto for stroke prophylaxis and tolerates the drug well. In the hospital, her medications were adjusted and now she feels ready for discharge. PHYSICAL EXAMINATION: VITAL SIGNS: Today her pulse is 92 and irregularly irregular, blood pressure is 129/78. She is afebrile. She weighs 98.4 kg and has a body mass index of 35. NECK: Supple. She has no jugular distention. Carotids are full. LUNGS: Respirations are unlabored. Her chest has decreased breath sounds at the bases, but is otherwise clear. HEART: Has an irregularly irregular rhythm without murmurs or gallops. ABDOMEN: Soft. EXTREMITIES: Showed no edema. At this time, her medications include metoprolol succinate 75 mg p.o. b.i.d., digoxin 250 mcg daily, losartan 25 mg daily, hydrochlorothiazide 12.5 mg daily, vitamin D 1000 units daily, prednisone on a tapering dose schedule, fluoxetine 40 mg daily, aspirin 81 mg daily, iron sulfate 325 mg b.i.d., omeprazole 20 mg b.i.d., trazodone 50 mg at bedtime, atorvastatin 20 mg daily, amitriptyline 50 mg at bedtime, rivaroxaban 20 mg daily, acetaminophen p.r.n. I would like her to follow up with us in the office in 3-6 weeks. PROBLEM LIST: Includes: 1. Atrial fibrillation. 2. Chronic diastolic heart failure. 3. Chronic obstructive pulmonary disease with chronic respiratory failure. 4. Home oxygen dependence. 5. Essential hypertension. 6. Gastroesophageal reflux disease. 7. Hyperlipidemia. 8. Type 2 diabetes mellitus. PLAN: She can be discharged on her current medications. We will follow up with her in the office as noted. I thank the hospitalist physicians for asking our advice regarding her care. [place], [place] PROGRESS NOTE NAME: ZAHIDA MCKEON UNIT #: [id number] ROOM: [facility] DOCTOR: SHAYLA BAER MD BIRTHDATE: [birth year] SHAYLA BAER MD CM:PNTRANS [phone] SHAYLA BAER MD 10/12/172210 interface
[~2017-10-08 13:42] MED LIST changes: +DIOVAN80 M1 PO; +HYDROCHLOROTH12.5 M2 PO; +OXYGEN NAS
[2017-10-08 14:21] LABS: BASO % 0.2 % (0.0-1.0); EOS # 0.2 10*3/uL (0.0-0.4); EOS % 1.3 % (1.0-4.0); HEMATOCRIT 35.5 % (37.0-47.0); HEMOGLOBIN 10.6 g/dl (12.0-16.0); LYMPH # 4.3 10*3/uL (1.3-4.4); LYMPH % 33.6 % (27.0-41.0); MEAN CELL VOLUME 88.1 fl (81.0-99.0); MEAN CORPUSCULAR HGB 26.3 pg (27.0-31.0); MEAN CORPUSCULAR HGB CONC 29.9 g/dl (33.0-37.0); MEAN PLATELET VOLUME 9.9 fl (9.6-12.3); MONO # 1.4 10*3/uL (0.1-1.0); MONO % 10.9 % (3.0-9.0); NEUT # 6.9 10*3/uL (2.3-7.9); NEUT % 53.3 % (47.0-73.0); PLATELET COUNT AUTOMATED 349 10*3/uL (130-400); RED BLOOD COUNT 4.03 10*6/uL (4.10-5.10); RED CELL DISTRI WIDTH 16.8 % (0-14.5); WHITE BLOOD COUNT 12.9 10*3/uL (4.8-10.8)
[2017-10-08 14:38] LABS: ALBUMIN 3.1 gm/dl (3.1-4.5); ALKALINE PHOSPHATASE 62 U/L (45-117); BUN 19 mg/dl (7-24); CHLORIDE 99 mmol/L (98-107); CREATININE 1.01 mg/dL (0.55-1.02); POTASSIUM 3.6 mmol/L (3.5-5.1); SGOT/AST 15 IU/L (3-35); SGPT/ALT 26 U/L (12-78); SODIUM 141 mmol/L (136-145)
[2017-10-08 14:39] LABS: TROPONIN I 0.035 ng/ml (<0.045)
[2017-10-08 14:43] LABS: BILIRUBIN NEGATIVE (NEGATIVE); BLOOD NEGATIVE (NEGATIVE); CLARITY CLEAR (CLEAR); COLOR YELLOW (YELLOW); GLUCOSE NEGATIVE (NEGATIVE); KETONE TRACE (NEGATIVE); LEUKO ESTERASE NEGATIVE (NEGATIVE); NITRITE NEGATIVE (NEGATIVE); SPECIFIC GRAVITY 1.025 (1.005-1.030); UROBILINOGEN 0.2 E.U./dl (0.2-1.0)
[2017-10-08 15:01] LABS: BACTERIA TRACE; EPITHELIAL CELLS TNTC; YEAST TRACE
[2017-10-08 15:02] LABS: RBC 0-2 rbc/hpf (0-2)
[2017-10-08] MEDS ORDERED: DOXYCYCLINE100 M3 PO (18:02)
[2017-10-09] VITALS (10 sets, daily range): BP systolic 140–158; BP diastolic 66–94
[2017-10-09 07:52] LABS: BASO % 0.2 % (0.0-1.0); EOS # 0.3 10*3/uL (0.0-0.4); EOS % 3.5 % (1.0-4.0); HEMATOCRIT 38.5 % (37.0-47.0); HEMOGLOBIN 11.3 g/dl (12.0-16.0); LYMPH # 2.8 10*3/uL (1.3-4.4); MEAN CELL VOLUME 88.3 fl (81.0-99.0); MEAN CORPUSCULAR HGB 25.9 pg (27.0-31.0); MEAN CORPUSCULAR HGB CONC 29.4 g/dl (33.0-37.0); MEAN PLATELET VOLUME 9.5 fl (9.6-12.3); MONO # 0.8 10*3/uL (0.1-1.0); MONO % 9.7 % (3.0-9.0); NEUT # 4.5 10*3/uL (2.3-7.9); NEUT % 52.9 % (47.0-73.0); PLATELET COUNT AUTOMATED 303 10*3/uL (130-400); RED BLOOD COUNT 4.36 10*6/uL (4.10-5.10); RED CELL DISTRI WIDTH 16.9 % (0-14.5); WHITE BLOOD COUNT 8.6 10*3/uL (4.8-10.8)
[2017-10-09 08:35] LABS: BUN 13 mg/dl (7-24); CHLORIDE 100 mmol/L (98-107); CREATININE 0.92 mg/dL (0.55-1.02); PHOSPHOROUS 4.1 mg/dL (2.5-4.9); POTASSIUM 4.1 mmol/L (3.5-5.1); SODIUM 141 mmol/L (136-145)
[2017-10-10] VITALS (7 sets, daily range): BP systolic 137–168; BP diastolic 84–102
[2017-10-10 07:37] LABS: BUN 15 mg/dl (7-24); CHLORIDE 100 mmol/L (98-107); CREATININE 0.81 mg/dL (0.55-1.02); POTASSIUM 3.6 mmol/L (3.5-5.1); SODIUM 139 mmol/L (136-145)
[2017-10-11] VITALS: BP 134/81
[2017-10-11 08:00] VITALS: BP 182/98
[2017-10-11 12:00] VITALS: BP 128/76
[2017-10-11 16:00] VITALS: BP 139/87
[2017-10-11 20:00] VITALS: BP 125/79
[2017-10-12] VITALS: BP 150/80
[2017-10-12 08:00] VITALS: BP 129/78
[2017-10-12 12:00] VITALS: BP 146/85
[2017-10-12] MEDS ORDERED: DIGOX125 MCG PO (14:52)
[2017-10-12] MEDS ORDERED: METOPROLOL SUCC25 M2 PO (14:52)
[2017-10-12 16:00] VITALS: BP 141/77
== END 2017-10-12 16:57 | disposition home or self-care (01) | DRG 309 ==
LOC: ED 13:42 → 4E 16:12 → EDHOLD 16:12 → 4E 16:44
PROVIDERS: Emergency Medicine; Internal Medicine Hospice and Palliative Medicine; Student in an Organized Health Care Education/Training Program
DX: I48.0 Paroxysmal atrial fibrillation (principal); I50.32 Chronic diastolic (congestive) heart failure; E44.0 Moderate protein-calorie malnutrition; J96.11 Chronic respiratory failure with hypoxia; I11.0 Hypertensive heart disease with heart failure; D68.59 Other primary thrombophilia; E11.65 Type 2 diabetes mellitus with hyperglycemia; J44.1 Chronic obstructive pulmonary disease with (acute) exacerbation; D64.9 Anemia, unspecified; E66.09 Other obesity due to excess calories; E78.1 Pure hyperglyceridemia; F32.9 Major depressive disorder, single episode, unspecified; K21.9 Gastro-esophageal reflux disease without esophagitis; E55.9 Vitamin D deficiency, unspecified; F41.1 Generalized anxiety disorder; Z79.2 Long term (current) use of antibiotics; Z79.01 Long term (current) use of anticoagulants; Z68.34 Body mass index [BMI] 34.0-34.9, adult; Z79.82 Long term (current) use of aspirin; Z99.81 Dependence on supplemental oxygen; Z79.899 Other long term (current) drug therapy; Z87.01 Personal history of pneumonia (recurrent); Z98.51 Tubal ligation status; Z87.891 Personal history of nicotine dependence; Z80.9 Family history of malignant neoplasm, unspecified; Z81.1 Family history of alcohol abuse and dependence; E78.5 Hyperlipidemia, unspecified

== ENCOUNTER 2017-11-01 10:42 | Emergency (ER) | payer MEDICARE, OTHER ==
[~2017-11-01] VITALS: Ht 167.6 cm; Wt 93.4 kg
--- NOTE | ~2017-11-01 | EKG ---
[place], [place] ELECTROCARDIOGRAM REPORT NAME: ZAHIDA MCKEON UNIT #: [id number] ROOM: DOCTOR: PAULA WALTERS MD,JULIA BIRTHDATE: [birth year] DOS: 11/01/2017 Electrocardiogram done for the patient on 11/01/2017 at 11:05 a.m. Normal sinus rhythm noted, 62 beats per minute with nonspecific generalized ST-T changes. JULIA MITCHELL MD CM:EKGRPT:ELECTROCARDIOGRAM REPORT [id number] JULIA WALTERS MD
[~2017-11-01 10:42] MED LIST changes: +DIGOX125 MCG PO
[2017-11-01 11:03] LABS: BASO % 0.5 % (0.0-1.0); EOS # 0.2 10*3/uL (0.0-0.4); EOS % 2.5 % (1.0-4.0); HEMATOCRIT 31.5 % (37.0-47.0); HEMOGLOBIN 9.7 g/dl (12.0-16.0); LYMPH # 2.1 10*3/uL (1.3-4.4); LYMPH % 33.1 % (27.0-41.0); MEAN CELL VOLUME 88.7 fl (81.0-99.0); MEAN CORPUSCULAR HGB 27.3 pg (27.0-31.0); MEAN CORPUSCULAR HGB CONC 30.8 g/dl (33.0-37.0); MONO # 0.7 10*3/uL (0.1-1.0); MONO % 10.8 % (3.0-9.0); NEUT # 3.4 10*3/uL (2.3-7.9); NEUT % 52.9 % (47.0-73.0); PLATELET COUNT AUTOMATED 205 10*3/uL (130-400); RED BLOOD COUNT 3.55 10*6/uL (4.10-5.10); RED CELL DISTRI WIDTH 17.6 % (0-14.5); WHITE BLOOD COUNT 6.4 10*3/uL (4.8-10.8)
[2017-11-01 11:21] LABS: ALKALINE PHOSPHATASE 69 U/L (45-117); BUN 7 mg/dl (7-24); CHLORIDE 101 mmol/L (98-107); CREATININE 0.81 mg/dL (0.55-1.02); SGOT/AST 10 IU/L (3-35); SGPT/ALT 14 U/L (12-78); SODIUM 141 mmol/L (136-145); TOTAL PROTEIN 6.1 gm/dL (6.4-8.2)
[2017-11-01 13:03] VITALS: BP 160/70
== END 2017-11-01 13:02 | disposition home or self-care (01) ==
LOC: ED 10:42
PROVIDERS: Family Medicine
DX: J44.1 Chronic obstructive pulmonary disease with (acute) exacerbation (principal); K21.9 Gastro-esophageal reflux disease without esophagitis; E78.5 Hyperlipidemia, unspecified; I11.0 Hypertensive heart disease with heart failure; I50.32 Chronic diastolic (congestive) heart failure; E11.9 Type 2 diabetes mellitus without complications; I48.0 Paroxysmal atrial fibrillation; Z79.82 Long term (current) use of aspirin; Z79.899 Other long term (current) drug therapy; Z87.891 Personal history of nicotine dependence

== ENCOUNTER 2018-02-10 19:23 | Inpatient (IN) | payer MEDICARE, OTHER ==
[~2018-02-10] VITALS: Ht 167.6 cm; Wt 93.4 kg
[2018-02-10 19:28] VITALS: BP 173/78
[2018-02-10 20:27] LABS: BASO % 0.9 % (0.0-1.0); EOS # 0.1 10*3/uL (0.0-0.4); EOS % 1.1 % (1.0-4.0); HEMATOCRIT 29.3 % (37.0-47.0); HEMOGLOBIN 8.9 g/dl (12.0-16.0); LYMPH # 1.4 10*3/uL (1.3-4.4); MEAN CELL VOLUME 87.2 fl (81.0-99.0); MEAN CORPUSCULAR HGB 26.5 pg (27.0-31.0); MEAN CORPUSCULAR HGB CONC 30.4 g/dl (33.0-37.0); MEAN PLATELET VOLUME 8.9 fl (9.6-12.3); MONO # 0.7 10*3/uL (0.1-1.0); MONO % 15.3 % (3.0-9.0); NEUT # 2.2 10*3/uL (2.3-7.9); NEUT % 49.5 % (47.0-73.0); PLATELET COUNT AUTOMATED 305 10*3/uL (130-400); RED BLOOD COUNT 3.36 10*6/uL (4.10-5.10); RED CELL DISTRI WIDTH 13.6 % (0-14.5); WHITE BLOOD COUNT 4.4 10*3/uL (4.8-10.8)
[2018-02-10 20:30] VITALS: BP 170/70
[2018-02-10 20:39] LABS: INTERNATIONAL NORM RATIO 1.1 (2.0-3.5)
[2018-02-10 20:44] LABS: ALBUMIN 3.5 gm/dl (3.1-4.5); ALKALINE PHOSPHATASE 73 U/L (45-117); BUN 6 mg/dl (7-24); CHLORIDE 102 mmol/L (98-107); POTASSIUM 3.6 mmol/L (3.5-5.1); SGOT/AST 15 IU/L (3-35); SGPT/ALT 15 U/L (12-78); SODIUM 139 mmol/L (136-145); TOTAL PROTEIN 6.9 gm/dL (6.4-8.2)
[2018-02-10 20:47] LABS: TROPONIN I < 0.015 ng/ml (<0.045)
[2018-02-10 21:16] LABS: BILIRUBIN NEGATIVE (NEGATIVE); BLOOD NEGATIVE (NEGATIVE); CLARITY SL CLOUDY (CLEAR); COLOR YELLOW (YELLOW); GLUCOSE NEGATIVE (NEGATIVE); KETONE NEGATIVE (NEGATIVE); LEUKO ESTERASE 3+ (NEGATIVE); NITRITE NEGATIVE (NEGATIVE); SPECIFIC GRAVITY <= 1.005 (1.005-1.030); UROBILINOGEN 0.2 E.U./dl (0.2-1.0)
[2018-02-10 21:22] LABS: BACTERIA 2+
[2018-02-10 21:23] LABS: EPITHELIAL CELLS 16-20; YEAST TRACE
[2018-02-10 21:24] LABS: WBC 51-100 wbc/hpf (0-5)
[2018-02-10 21:30] VITALS: BP 168/80
[2018-02-10 22:30] VITALS: BP 166/82
[2018-02-10 23:30] VITALS: BP 165/81
[2018-02-11 00:04] VITALS: BP 168/80
[2018-02-11 00:05] VITALS: BP 161/89
[2018-02-11 06:34] LABS: ALBUMIN 3.1 gm/dl (3.1-4.5); BUN 8 mg/dl (7-24); CHLORIDE 104 mmol/L (98-107); CHOLESTEROL 141 mg/dL (<200); CREATININE 0.94 mg/dL (0.55-1.02); HDL CHOLESTEROL 62 mg/dl (40-60); PHOSPHOROUS 4.1 mg/dL (2.5-4.9); POTASSIUM 3.2 mmol/L (3.5-5.1); SGOT/AST 18 IU/L (3-35); SGPT/ALT 11 U/L (12-78); SODIUM 141 mmol/L (136-145); TOTAL PROTEIN 6.1 gm/dL (6.4-8.2)
[2018-02-11 06:38] LABS: BASO # 0.1 10*3/uL (0.0-0.1); EOS # 0.1 10*3/uL (0.0-0.4); HEMOGLOBIN 8.4 g/dl (12.0-16.0); LYMPH # 1.7 10*3/uL (1.3-4.4); LYMPH % 35.6 % (27.0-41.0); MEAN CELL VOLUME 87.2 fl (81.0-99.0); MEAN CORPUSCULAR HGB 26.2 pg (27.0-31.0); MEAN PLATELET VOLUME 9.7 fl (9.6-12.3); MONO # 0.8 10*3/uL (0.1-1.0); MONO % 16.6 % (3.0-9.0); NEUT # 2.2 10*3/uL (2.3-7.9); NEUT % 45.6 % (47.0-73.0); PLATELET COUNT AUTOMATED 307 10*3/uL (130-400); RED BLOOD COUNT 3.21 10*6/uL (4.10-5.10); RED CELL DISTRI WIDTH 13.7 % (0-14.5); WHITE BLOOD COUNT 4.9 10*3/uL (4.8-10.8)
[2018-02-11 06:43] LABS: ALKALINE PHOSPHATASE 64 U/L (45-117); FREE T4 1.17 ng/dl (0.76-1.46); LDL CHOLESTEROL 55 mg/dL (9-159); TRIGLYCERIDES 121 mg/dl (<150); VLDL CHOLESTEROL 24 mg/dL (6-40)
[2018-02-11 07:39] LABS: VITAMIN D, 25-HYDROXY 32.6 ng/mL (30-100)
[2018-02-11 08:00] VITALS: BP 168/70
[2018-02-11 12:00] VITALS: BP 153/65
[2018-02-11 16:00] VITALS: BP 173/69
[2018-02-11] MEDS ORDERED: METOPROLOL SUCC25 M2 PO ×2 (18:27→18:30)
[2018-02-11] MEDS ORDERED: ANORO ELLIPTA1 EACH IH (18:31)
[2018-02-11 20:00] VITALS: BP 147/81
[2018-02-12 06:05] LABS: BASO % 0.8 % (0.0-1.0); EOS # 0.1 10*3/uL (0.0-0.4); EOS % 1.2 % (1.0-4.0); HEMATOCRIT 27.6 % (37.0-47.0); HEMOGLOBIN 8.3 g/dl (12.0-16.0); LYMPH # 1.8 10*3/uL (1.3-4.4); LYMPH % 34.8 % (27.0-41.0); MEAN CELL VOLUME 87.9 fl (81.0-99.0); MEAN CORPUSCULAR HGB 26.4 pg (27.0-31.0); MEAN CORPUSCULAR HGB CONC 30.1 g/dl (33.0-37.0); MEAN PLATELET VOLUME 9.7 fl (9.6-12.3); MONO # 0.9 10*3/uL (0.1-1.0); MONO % 17.1 % (3.0-9.0); NEUT # 2.3 10*3/uL (2.3-7.9); NEUT % 45.7 % (47.0-73.0); PLATELET COUNT AUTOMATED 312 10*3/uL (130-400); RED BLOOD COUNT 3.14 10*6/uL (4.10-5.10); RED CELL DISTRI WIDTH 13.7 % (0-14.5); WHITE BLOOD COUNT 5.1 10*3/uL (4.8-10.8)
[2018-02-12 06:29] LABS: BUN 7 mg/dl (7-24); CHLORIDE 105 mmol/L (98-107); CREATININE 0.79 mg/dL (0.55-1.02); SODIUM 143 mmol/L (136-145)
[2018-02-12 06:48] LABS: DIGOXIN < 0.06 ng/ml (0.8-2.0)
[2018-02-12 08:00] VITALS: BP 180/89
[2018-02-12] MEDS ORDERED: AMINOPHYLLIN200 MG PO (11:54)
[2018-02-12 12:00] VITALS: BP 182/70
[2018-02-12 16:00] VITALS: BP 165/71
== END 2018-02-12 19:25 | disposition home or self-care (01) | DRG 689 ==
LOC: ED 19:23 → EDHOLD 22:49 → ED 22:49 → 4E 22:54 → ED 02-11 00:24 → EDHOLD 02-11 10:08 → ED 02-11 10:08 → 4E 02-11 10:10 → EDHOLD 02-11 10:10 → 4E 02-12 19:25
PROVIDERS: Emergency Medicine; Family Medicine
DX: N39.0 Urinary tract infection, site not specified (principal); G93.41 Metabolic encephalopathy; J96.11 Chronic respiratory failure with hypoxia; E11.65 Type 2 diabetes mellitus with hyperglycemia; I50.32 Chronic diastolic (congestive) heart failure; I48.0 Paroxysmal atrial fibrillation; E66.9 Obesity, unspecified; I11.0 Hypertensive heart disease with heart failure; F41.1 Generalized anxiety disorder; E78.5 Hyperlipidemia, unspecified; D64.9 Anemia, unspecified; J44.9 Chronic obstructive pulmonary disease, unspecified; K21.9 Gastro-esophageal reflux disease without esophagitis; F32.9 Major depressive disorder, single episode, unspecified; Z79.899 Other long term (current) drug therapy; Z99.81 Dependence on supplemental oxygen; Z98.51 Tubal ligation status; Z98.49 Cataract extraction status, unspecified eye; Z87.891 Personal history of nicotine dependence; Z80.9 Family history of malignant neoplasm, unspecified; Z81.1 Family history of alcohol abuse and dependence; Z79.82 Long term (current) use of aspirin; Z79.84 Long term (current) use of oral hypoglycemic drugs; Z68.31 Body mass index [BMI] 31.0-31.9, adult

== ENCOUNTER 2018-02-15 20:15 | Emergency (ER) | payer MEDICARE, OTHER ==
[~2018-02-15] VITALS: Wt 90.7 kg
[~2018-02-15 20:15] MED LIST changes: +AMINOPHYLLIN200 MG PO; +ANORO ELLIPTA1 EACH IH
[2018-02-15 22:59] LABS: BASO % 0.3 % (0.0-1.0); EOS # 0.1 10*3/uL (0.0-0.4); EOS % 0.8 % (1.0-4.0); HEMATOCRIT 31.4 % (37.0-47.0); HEMOGLOBIN 9.5 g/dl (12.0-16.0); LYMPH # 2.1 10*3/uL (1.3-4.4); LYMPH % 32.4 % (27.0-41.0); MEAN CORPUSCULAR HGB 26.3 pg (27.0-31.0); MEAN CORPUSCULAR HGB CONC 30.3 g/dl (33.0-37.0); MEAN PLATELET VOLUME 9.3 fl (9.6-12.3); MONO # 0.8 10*3/uL (0.1-1.0); MONO % 12.4 % (3.0-9.0); NEUT # 3.4 10*3/uL (2.3-7.9); NEUT % 53.8 % (47.0-73.0); PLATELET COUNT AUTOMATED 326 10*3/uL (130-400); RED BLOOD COUNT 3.61 10*6/uL (4.10-5.10); WHITE BLOOD COUNT 6.4 10*3/uL (4.8-10.8)
[2018-02-15 23:05] LABS: BILIRUBIN NEGATIVE (NEGATIVE); BLOOD NEGATIVE (NEGATIVE); CLARITY CLEAR (CLEAR); COLOR YELLOW (YELLOW); GLUCOSE NEGATIVE (NEGATIVE); KETONE NEGATIVE (NEGATIVE); LEUKO ESTERASE 2+ (NEGATIVE); NITRITE NEGATIVE (NEGATIVE); UROBILINOGEN 0.2 E.U./dl (0.2-1.0)
[2018-02-15 23:06] LABS: INTERNATIONAL NORM RATIO 1.5 (2.0-3.5)
[2018-02-15 23:16] LABS: ALBUMIN 3.6 gm/dl (3.1-4.5); ALKALINE PHOSPHATASE 81 U/L (45-117); BUN 7 mg/dl (7-24); CHLORIDE 98 mmol/L (98-107); CREATININE 0.78 mg/dL (0.55-1.02); SGOT/AST 14 IU/L (3-35); SGPT/ALT 10 U/L (12-78); SODIUM 141 mmol/L (136-145); TOTAL PROTEIN 6.8 gm/dL (6.4-8.2); TROPONIN I < 0.015 ng/ml (<0.045)
[2018-02-15 23:28] LABS: EPITHELIAL CELLS 30-35
[2018-02-15 23:29] LABS: YEAST TRACE
[2018-02-16 01:28] VITALS: BP 155/79
== END 2018-02-16 02:19 | disposition home or self-care (01) ==
LOC: ED 20:15
PROVIDERS: Emergency Medicine
DX: E87.6 Hypokalemia (principal); I11.0 Hypertensive heart disease with heart failure; I50.9 Heart failure, unspecified; J44.9 Chronic obstructive pulmonary disease, unspecified; K21.9 Gastro-esophageal reflux disease without esophagitis; E66.9 Obesity, unspecified; I48.91 Unspecified atrial fibrillation; E11.65 Type 2 diabetes mellitus with hyperglycemia; E78.5 Hyperlipidemia, unspecified; Z98.51 Tubal ligation status; Z87.891 Personal history of nicotine dependence; Z99.81 Dependence on supplemental oxygen; Z79.899 Other long term (current) drug therapy; Z79.82 Long term (current) use of aspirin

== ENCOUNTER 2019-10-24 20:06 | Inpatient (IN) | payer MEDICARE, OTHER ==
[~2019-10-24] VITALS: Ht 167.6 cm; Wt 99.1 kg
[~2019-10-24 20:06] MED LIST changes: +OMEPRAZOLE MAGN20 MG PO; -PRILOSEC20 M1 PO
[2019-10-24 20:15] VITALS: BP 149/74
[2019-10-24 20:35] LABS: BASO % 0.3 % (0.0-1.0); EOS % 0.5 % (1.0-4.0); HEMATOCRIT 33.9 % (37.0-47.0); HEMOGLOBIN 10.3 g/dl (12.0-16.0); LYMPH # 1.5 10*3/uL (1.3-4.4); LYMPH % 26.2 % (27.0-41.0); MEAN CELL VOLUME 93.1 fl (81.0-99.0); MEAN CORPUSCULAR HGB 28.3 pg (27.0-31.0); MEAN CORPUSCULAR HGB CONC 30.4 g/dl (33.0-37.0); MEAN PLATELET VOLUME 9.7 fl (9.6-12.3); MONO # 0.7 10*3/uL (0.1-1.0); MONO % 12.5 % (3.0-9.0); NEUT # 3.5 10*3/uL (2.3-7.9); NEUT % 59.6 % (47.0-73.0); PLATELET COUNT AUTOMATED 290 10*3/uL (130-400); RED BLOOD COUNT 3.64 10*6/uL (4.10-5.10); RED CELL DISTRI WIDTH 13.2 % (0-14.5); WHITE BLOOD COUNT 5.8 10*3/uL (4.8-10.8)
[2019-10-24 20:45] VITALS: BP 126/55
[2019-10-24 20:51] LABS: ALBUMIN 3.4 gm/dl (3.1-4.5); BUN 10 mg/dl (7-24); CHLORIDE 104 mmol/L (98-107); CREATININE 1.01 mg/dL (0.55-1.02); POTASSIUM 4.3 mmol/L (3.5-5.1); SGOT/AST 13 IU/L (3-35); SGPT/ALT 16 U/L (12-78); SODIUM 140 mmol/L (136-145); TOTAL PROTEIN 6.9 gm/dL (6.4-8.2)
[2019-10-24 20:53] LABS: ALKALINE PHOSPHATASE 73 U/L (45-117)
[2019-10-24 20:54] LABS: TROPONIN I < 0.015 ng/ml (<0.045)
[2019-10-24 20:57] LABS: INTERNATIONAL NORM RATIO 1.2 (2.0-3.5)
[2019-10-24 21:17] VITALS: BP 130/53
[2019-10-24 21:45] VITALS: BP 128/59
--- NOTE | 2019-10-24 22:15 | NUR ---
PATIENT AOX3 IN BED WITH FAMILY AT BEDSIDE. NO DISTRESS. VSS. RESP EASY AND NONLABORED. RN WILL CONT TO MONITOR
[2019-10-24 22:18] VITALS: BP 137/65
[2019-10-25 00:35] VITALS: BP 160/71
--- NOTE | 2019-10-25 00:35 | NUR ---
A 74, admitted to 5E, under the services of MARLENY Vanegas DO with a diagnosis of COPD EXACERBATION. Chief complaint is SOB. Patient arrived via stretcher from ER. Monitor applied. Initial assessment completed. Vital signs taken and recorded. MARLENY VANEGAS DO notified of admission to the unit. Orders received. See assessment for past medical history, medications and allergies. Patient and/or family oriented to unit. [facility] visitation policy reviewed. Clothing/patient valuable form completed. ANSLEY DESOUZA
[2019-10-25 01:45] VITALS: BP 152/74
[2019-10-25] MEDS ORDERED: IRON325 M3 PO (02:25)
[2019-10-25] MEDS ORDERED: VALSARTAN-HCTZ1 EACH PO (02:27)
[2019-10-25] MEDS ORDERED: XARE20MG PO (02:28)
[2019-10-25] MEDS ORDERED: LASIX20 MG PO (02:31)
[2019-10-25] MEDS ORDERED: NORVASC5 MG PO (02:31)
[2019-10-25] MEDS ORDERED: KLOR-CON 1010 ME1 PO (02:33)
[2019-10-25] MEDS ORDERED: VENTOLIN 02.5 MG/3 M INH (02:34)
[2019-10-25] MEDS ORDERED: CELEBREX100 MG PO (02:35)
--- NOTE | 2019-10-25 02:36 | NUR ---
MED REC UP TO DATE PER PT RECALL.
--- NOTE | 2019-10-25 06:18 | NUR ---
NOTIFIED OF CONSULT.
[2019-10-25 08:00] VITALS: BP 166/68
[2019-10-25 10:16] LABS: BASO % 0.2 % (0.0-1.0); HEMATOCRIT 34.7 % (37.0-47.0); HEMOGLOBIN 10.8 g/dl (12.0-16.0); LYMPH # 0.5 10*3/uL (1.3-4.4); LYMPH % 8.4 % (27.0-41.0); MEAN CELL VOLUME 92.5 fl (81.0-99.0); MEAN CORPUSCULAR HGB 28.8 pg (27.0-31.0); MEAN CORPUSCULAR HGB CONC 31.1 g/dl (33.0-37.0); MEAN PLATELET VOLUME 9.9 fl (9.6-12.3); MONO # 0.1 10*3/uL (0.1-1.0); MONO % 0.9 % (3.0-9.0); NEUT # 4.9 10*3/uL (2.3-7.9); NEUT % 89.8 % (47.0-73.0); PLATELET COUNT AUTOMATED 304 10*3/uL (130-400); RED BLOOD COUNT 3.75 10*6/uL (4.10-5.10); RED CELL DISTRI WIDTH 13.2 % (0-14.5); WHITE BLOOD COUNT 5.5 10*3/uL (4.8-10.8)
[2019-10-25 10:27] LABS: CREATININE 1.15 mg/dL (0.55-1.02)
[2019-10-25 10:28] LABS: PHOSPHOROUS 2.2 mg/dL (2.5-4.9)
[2019-10-25 12:00] VITALS: BP 135/68
--- NOTE | 2019-10-25 14:32 | NUR ---
[employer] Resource Specialist in to talk to patient. Patient states lives at HOME with SON AND GRANDSON. There are FEW steps in the home. Physician: JIMY [facility]acy: [facility] Home health services: NONE Patient's level of ADLs: INDEPENDENT Patient has working utilities: YES DME: OXYGEN, PORTABLE TANKS, NEBULIZER Follow-up physician's appointment after d/c: WILL BE MADE BY HOSPITALIST NURSE DIRECTOR ON DISCHARGE Does patient want to access PORTAL?: NO Discharge plan PT LIVES AT HOME WITH SON AND GRANDSON AND IS INDEPENDENT IN HER CARE. STATES SHE HAS OXYGEN AND NEBULIZER AT HOME FROM [facility]. DENIES SHE WILL HAVE ANY NEEDS ON DISCHARGE. PLANS TO RETURN HOME WHEN MEDICALLY STABLE. WILL CONTINUE TO FOLLOW. PT WILL HAVE A RIDE HOME ON DISCHARGE.. MARZENA OVALLES
[2019-10-25 16:00] VITALS: BP 140/74
--- NOTE | 2019-10-25 17:16 | NUR ---
PATIENT INSTRUCTED ON FLUTTER VALVE.
[2019-10-25 20:00] VITALS: BP 129/67
--- NOTE | 2019-10-25 21:37 | NUR ---
PT C/O HEARTBURN & REQUESTING TUMS. NOTIFIED. NEW ORDER RECEIVED.
--- NOTE | 2019-10-25 21:45 | NUR ---
TUMS ADMINISTERED PER ORDER FOR C/O INDIGESTION. WILL MONITOR EFFECTIVENESS. 6 UNITS INSULIN ADMINISTERED PER SLIDING SCALE FOR BSG OF 262. PT EDUCATED ON S/S OF HYPOGLYCEMIA AND TO NOTIFY RN IF NEW SYMPTOMS ARISE. PT VERBALIZES UNDERSTANDING. WILL MONITOR. CALL LIGHT IN REACH.
[2019-10-26] VITALS: BP 147/42
--- NOTE | 2019-10-26 04:59 | NUR ---
PT ASLEEP IN BED. RESPIRATIONS EASY. NO S/S OF DISTRESS NOTED. WILL MONITOR. CALL LIGHT LEFT IN REACH.
[2019-10-26 08:00] VITALS: BP 131/69
[2019-10-26 08:04] LABS: HEMATOCRIT 31.3 % (37.0-47.0); HEMOGLOBIN 9.8 g/dl (12.0-16.0); MEAN CELL VOLUME 92.9 fl (81.0-99.0); MEAN CORPUSCULAR HGB 29.1 pg (27.0-31.0); MEAN CORPUSCULAR HGB CONC 31.3 g/dl (33.0-37.0); MEAN PLATELET VOLUME 10.6 fl (9.6-12.3); PLATELET COUNT AUTOMATED 323 10*3/uL (130-400); RED BLOOD COUNT 3.37 10*6/uL (4.10-5.10); RED CELL DISTRI WIDTH 13.6 % (0-14.5); WHITE BLOOD COUNT 17.6 10*3/uL (4.8-10.8)
[2019-10-26 08:25] LABS: CREATININE 1.1 mg/dL (0.55-1.02); PLATELET SUFFICIENCY NORMAL (NORMAL); POTASSIUM 3.5 mmol/L (3.5-5.1); TOTAL CELLS COUNTED 100 #CELLS
[2019-10-26 08:26] LABS: OVALOCYTES FEW
[2019-10-26 08:27] LABS: POLYCHROMASIA SLIGHT
[2019-10-26 12:00] VITALS: BP 120/46
--- NOTE | 2019-10-26 12:14 | NUR ---
PT CONTINUES TO DENY NEEDS ON DISCHARGE. WILL CONTINUE TO FOLLOW.
[2019-10-26 16:00] VITALS: BP 121/70
--- NOTE | 2019-10-26 19:41 | NUR ---
PT AWAKE, SITTING UP IN BED. RESPIRATIONS EASY. NO S/S OF DISTRESS NOTED. O2 IN USE VIA 3L NC. FAMILY AT BEDSIDE. WILL MONITOR. CALL LIGHT IN REACH.
[2019-10-26 20:00] VITALS: BP 152/71
--- NOTE | 2019-10-26 22:59 | NUR ---
EARLIER TYLENOL EFFECTIVE PER PT. WILL MONITOR. CALL LIGHT IN REACH.
[2019-10-27] VITALS: BP 118/58
[2019-10-27 08:00] VITALS: BP 117/60
--- NOTE | 2019-10-27 08:00 | NUR ---
Patient resting quietly with no c/o discomfort. Respirations easy and regular. Vital signs stable. No overt distress. JAYDEN RO
[2019-10-27] MEDS ORDERED: LEVAQUIN500 M2 PO (11:17)
[2019-10-27] MEDS ORDERED: PREDNISONE10 MG PO (11:17)
[2019-10-27 12:00] VITALS: BP 123/46
--- NOTE | 2019-10-27 12:45 | NUR ---
Discharge instructions reviewed with patient/family. Patient receptive and verbalizes understanding. Follow-up care arranged. Written instructions given to patient/family. JAYDEN RO.
== END 2019-10-27 12:45 | disposition home or self-care (01) | DRG 190 ==
LOC: ED 20:06 → EDHOLD 23:02 → 5E 23:02
PROVIDERS: Emergency Medicine; Internal Medicine; ADMIT Emergency Medicine
DX: J44.1 Chronic obstructive pulmonary disease with (acute) exacerbation (principal); N17.0 Acute kidney failure with tubular necrosis; J96.11 Chronic respiratory failure with hypoxia; I50.32 Chronic diastolic (congestive) heart failure; E44.0 Moderate protein-calorie malnutrition; D68.59 Other primary thrombophilia; J20.9 Acute bronchitis, unspecified; J44.0 Chronic obstructive pulmonary disease with (acute) lower respiratory infection; E11.65 Type 2 diabetes mellitus with hyperglycemia; I11.0 Hypertensive heart disease with heart failure; I48.0 Paroxysmal atrial fibrillation; E78.2 Mixed hyperlipidemia; F32.9 Major depressive disorder, single episode, unspecified; K21.9 Gastro-esophageal reflux disease without esophagitis; F41.1 Generalized anxiety disorder; E66.9 Obesity, unspecified; T38.0X5A Adverse effect of glucocorticoids and synthetic analogues, initial encounter; Y92.89 Other specified places as the place of occurrence of the external cause; Z68.35 Body mass index [BMI] 35.0-35.9, adult; Z99.81 Dependence on supplemental oxygen; Z79.899 Other long term (current) drug therapy; Z79.82 Long term (current) use of aspirin; Z98.51 Tubal ligation status; Z87.891 Personal history of nicotine dependence; Z80.8 Family history of malignant neoplasm of other organs or systems; Z81.1 Family history of alcohol abuse and dependence

== ENCOUNTER 2019-11-23 22:04 | Inpatient (IN) | payer MEDICARE, OTHER ==
[~2019-11-23] VITALS: Ht 167.6 cm; Wt 95.4 kg
[~2019-11-23 22:04] MED LIST changes: +IRON325 M3 PO; +KLOR-CON 1010 ME1 PO; +LASIX20 MG PO; +VENTOLIN 02.5 MG/3 M INH
[2019-11-23 22:18] VITALS: BP 114/66
[2019-11-23 22:41] LABS: BASO % 0.5 % (0.0-1.0); EOS # 0.2 10*3/uL (0.0-0.4); EOS % 4.7 % (1.0-4.0); HEMATOCRIT 37.1 % (37.0-47.0); HEMOGLOBIN 11.7 g/dl (12.0-16.0); LYMPH # 1.4 10*3/uL (1.3-4.4); LYMPH % 35.9 % (27.0-41.0); MEAN CELL VOLUME 92.1 fl (81.0-99.0); MEAN CORPUSCULAR HGB CONC 31.5 g/dl (33.0-37.0); MONO # 0.6 10*3/uL (0.1-1.0); MONO % 14.7 % (3.0-9.0); NEUT # 1.7 10*3/uL (2.3-7.9); NEUT % 43.9 % (47.0-73.0); PLATELET COUNT AUTOMATED 264 10*3/uL (130-400); RED BLOOD COUNT 4.03 10*6/uL (4.10-5.10); RED CELL DISTRI WIDTH 13.6 % (0-14.5); WHITE BLOOD COUNT 3.8 10*3/uL (4.8-10.8)
[2019-11-23 22:52] LABS: ACT PARTIAL THROMBO TIME 32.3 SECONDS (20.0-32.1); INTERNATIONAL NORM RATIO 1.1 (2.0-3.5)
[2019-11-23 22:56] LABS: ALBUMIN 3.3 gm/dl (3.1-4.5); ALKALINE PHOSPHATASE 67 U/L (45-117); BUN 13 mg/dl (7-24); CHLORIDE 104 mmol/L (98-107); CREATININE 1.34 mg/dL (0.55-1.02); POTASSIUM 3.9 mmol/L (3.5-5.1); SGOT/AST 16 IU/L (3-35); SGPT/ALT 18 U/L (12-78); SODIUM 140 mmol/L (136-145); TOTAL PROTEIN 6.6 gm/dL (6.4-8.2)
[2019-11-23 23:06] LABS: TROPONIN I < 0.015 ng/ml (<0.045)
[2019-11-24] VITALS: BP 123/69
[2019-11-24 01:15] VITALS: BP 115/62
--- NOTE | 2019-11-24 01:16 | NUR ---
Time: 115 A 74 year old F admitted to under services of ELMO TRUJILLO DO, Pt. arrived via bed from ER. Chief complaint: SOB X 1 WEEK. FATIGUE. POOR APPETITE. ADEOLA COX
[2019-11-24] MEDS ORDERED: CELECOXIB200 M1 PO (01:38)
[2019-11-24] MEDS ORDERED: VENT7GM INH (01:43)
--- NOTE | 2019-11-24 05:15 | NUR ---
MED REC UP TO DATE. DR ARORA AWARE
--- NOTE | 2019-11-24 06:00 | NUR ---
SLEPT SINCE ARRIVING TO FLOOR. RESPIRATIONS EASY. O2 IN USE. CALL LIGHT WITHIN REACH. NO VOICED COMPLAINTS THIS SHIFT
--- NOTE | 2019-11-24 06:15 | NUR ---
BSG 168, DECLINES SS COVERAGE
[2019-11-24 07:01] LABS: BASO % 0.3 % (0.0-1.0); EOS % 0.6 % (1.0-4.0); LYMPH # 0.6 10*3/uL (1.3-4.4); LYMPH % 16.8 % (27.0-41.0); MEAN CELL VOLUME 91.9 fl (81.0-99.0); MEAN CORPUSCULAR HGB 28.9 pg (27.0-31.0); MEAN CORPUSCULAR HGB CONC 31.4 g/dl (33.0-37.0); MONO # 0.1 10*3/uL (0.1-1.0); MONO % 3.8 % (3.0-9.0); NEUT # 2.7 10*3/uL (2.3-7.9); NEUT % 78.2 % (47.0-73.0); PLATELET COUNT AUTOMATED 236 10*3/uL (130-400); RED BLOOD COUNT 3.81 10*6/uL (4.10-5.10); RED CELL DISTRI WIDTH 13.6 % (0-14.5); WHITE BLOOD COUNT 3.4 10*3/uL (4.8-10.8)
[2019-11-24 07:20] LABS: BUN 12 mg/dl (7-24); CHLORIDE 108 mmol/L (98-107); CREATININE 0.94 mg/dL (0.55-1.02); PHOSPHOROUS 2.6 mg/dL (2.5-4.9); POTASSIUM 4.2 mmol/L (3.5-5.1); SODIUM 140 mmol/L (136-145)
[2019-11-24 08:00] VITALS: BP 116/73
--- NOTE | 2019-11-24 09:00 | NUR ---
Sql Data Analyst in to talk to patient. Patient states lives at home with daughter. There are no steps in the home. Physician: maged aguirre [facility]: [facility] Home health services: none at present Patient's level of ADLs: INDEPENDENT Patient has working utilities: all working DME: home oxygen, portable tanks nebulizer from [facility] Follow-up physician's appointment after d/c: will be made by hospitalist nurse director upon discharge Does patient want to access PORTAL?: no Discharge plan discussed with patient, she states she lives at home with daughter, she is independent in adls and ambulation, she wears oxygen at home at 3l continuous, she states she will return home when medically stable and denies any home needs, case management will follow. AMANDA CHAVARRIA
--- NOTE | 2019-11-24 11:17 | NUR ---
LUIS spoke with patient at [facility] on this date. Patient reports that she is behind $600 on her electric bill. Patient reports that her daughter in law Shivani is helping her to work on this. LUIS will followup with Shivani and provide any further support or referrals as needed.
[2019-11-24 12:00] VITALS: BP 123/88
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
[2019-11-24 16:00] VITALS: BP 123/62
--- NOTE | 2019-11-24 19:20 | NUR ---
REPORT RECIEVED. PT LYING IN BED AT THIS TIME. O2 INTACT. PT VOICES NO COMPLAINTS AT THIS TIME. CALL LIGHT IN REACH.
[2019-11-24 20:00] VITALS: BP 103/53
--- NOTE | 2019-11-24 21:00 | NUR ---
PT WATCHING TV AT THIS TIME. CALL LIGHT IN REACH
--- NOTE | 2019-11-24 23:00 | NUR ---
PT SLEEPING AT THIS TIME.
[2019-11-25] VITALS: BP 109/50
--- NOTE | 2019-11-25 04:00 | NUR ---
24 HR chart check completed.
[2019-11-25 08:00] VITALS: BP 102/63
--- NOTE | 2019-11-25 09:05 | NUR ---
PT RESTING IN BED. RESP-EASY AND REGULAR. OXYGEN IN USE. NO C/O AT THIS TIME. CALL LIGHT IN REACH. SEE SHIFT ASSESSMENT. TOLERATED ROUTINE MED WITH NO PROBLEM.
--- NOTE | 2019-11-25 10:00 | NUR ---
RESTING IN BED ON RIGHT SIDE. RESP-EASY AND REGULAR. CALL LIGHT IN REACH.
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
[2019-11-25 12:00] VITALS: BP 108/67
[2019-11-25] MEDS ORDERED: PREDNISONE10 MG PO (12:01)
--- NOTE | 2019-11-25 16:15 | NUR ---
Discharge instructions reviewed with patient/family. Patient receptive and verbalizes understanding. Follow-up care arranged. Written instructions given to patient/family. HEPLOCK REMOVED 2X2 APPLIED. ESCORTED VIA WHEELCHAIR WITH FAMILY AT HER SIDE. MIYA GRECO R
== END 2019-11-25 16:15 | disposition home or self-care (01) | DRG 190 ==
LOC: ED 22:04 → 5E 11-24 00:20 → EDHOLD 11-24 00:20 → 5E 11-24 01:00
PROVIDERS: Internal Medicine; Student in an Organized Health Care Education/Training Program; ADMIT Internal Medicine
DX: J44.1 Chronic obstructive pulmonary disease with (acute) exacerbation (principal); N17.0 Acute kidney failure with tubular necrosis; E44.0 Moderate protein-calorie malnutrition; I50.32 Chronic diastolic (congestive) heart failure; J96.11 Chronic respiratory failure with hypoxia; D68.59 Other primary thrombophilia; D64.9 Anemia, unspecified; E78.5 Hyperlipidemia, unspecified; F32.9 Major depressive disorder, single episode, unspecified; K21.9 Gastro-esophageal reflux disease without esophagitis; E55.9 Vitamin D deficiency, unspecified; I11.0 Hypertensive heart disease with heart failure; E11.65 Type 2 diabetes mellitus with hyperglycemia; F41.1 Generalized anxiety disorder; I48.0 Paroxysmal atrial fibrillation; E66.09 Other obesity due to excess calories; Z68.33 Body mass index [BMI] 33.0-33.9, adult; Z99.81 Dependence on supplemental oxygen; Z68.34 Body mass index [BMI] 34.0-34.9, adult

== ENCOUNTER 2019-12-22 16:43 | Inpatient (IN) | payer MEDICARE, OTHER ==
[~2019-12-22] VITALS: Ht 167.6 cm; Wt 91.0 kg
[~2019-12-22 16:43] MED LIST changes: +CELECOXIB200 M1 PO; +VENT7GM INH
[2019-12-22 16:52] VITALS: BP 100/59
[2019-12-22 17:46] LABS: BASO % 0.4 % (0.0-1.0); EOS # 0.4 10*3/uL (0.0-0.4); EOS % 4.8 % (1.0-4.0); HEMATOCRIT 37.7 % (37.0-47.0); HEMOGLOBIN 12.4 g/dl (12.0-16.0); LYMPH # 1.1 10*3/uL (1.3-4.4); LYMPH % 11.5 % (27.0-41.0); MEAN CELL VOLUME 89.5 fl (81.0-99.0); MEAN CORPUSCULAR HGB 29.5 pg (27.0-31.0); MEAN CORPUSCULAR HGB CONC 32.9 g/dl (33.0-37.0); MEAN PLATELET VOLUME 9.9 fl (9.6-12.3); MONO # 1.2 10*3/uL (0.1-1.0); MONO % 13.1 % (3.0-9.0); NEUT # 6.4 10*3/uL (2.3-7.9); NEUT % 69.9 % (47.0-73.0); PLATELET COUNT AUTOMATED 310 10*3/uL (130-400); RED BLOOD COUNT 4.21 10*6/uL (4.10-5.10); RED CELL DISTRI WIDTH 14.1 % (0-14.5); WHITE BLOOD COUNT 9.2 10*3/uL (4.8-10.8)
[2019-12-22 17:55] LABS: INTERNATIONAL NORM RATIO 1.1 (2.0-3.5)
[2019-12-22 18:00] LABS: ALBUMIN 2.7 gm/dl (3.1-4.5); ALKALINE PHOSPHATASE 74 U/L (45-117); BUN 17 mg/dl (7-24); CHLORIDE 98 mmol/L (98-107); CPK 17 U/L (26-192); CREATININE 1.22 mg/dL (0.55-1.02); LDH 215 U/L (84-246); POTASSIUM 3.9 mmol/L (3.5-5.1); SGOT/AST 16 IU/L (3-35); SGPT/ALT 16 U/L (12-78); SODIUM 131 mmol/L (136-145); TOTAL PROTEIN 6.9 gm/dL (6.4-8.2); TROPONIN I < 0.015 ng/ml (<0.045)
[2019-12-22 18:14] VITALS: BP 86/54
[2019-12-22 20:03] VITALS: BP 99/55
[2019-12-22 21:28] VITALS: BP 101/60
[2019-12-22 22:29] VITALS: BP 106/56
[2019-12-22 23:10] VITALS: BP 111/69
[2019-12-23 06:14] LABS: ALBUMIN 2.4 gm/dl (3.1-4.5); POTASSIUM 4.1 mmol/L (3.5-5.1)
[2019-12-23 06:20] LABS: CREATININE 1.33 mg/dL (0.55-1.02); PHOSPHOROUS 2.5 mg/dL (2.5-4.9); TOTAL PROTEIN 6.4 gm/dL (6.4-8.2)
[2019-12-23 06:37] LABS: BASO % 0.3 % (0.0-1.0); EOS % 0.3 % (1.0-4.0); HEMATOCRIT 34.1 % (37.0-47.0); HEMOGLOBIN 10.9 g/dl (12.0-16.0); LYMPH # 0.8 10*3/uL (1.3-4.4); LYMPH % 11.7 % (27.0-41.0); MEAN CELL VOLUME 90.9 fl (81.0-99.0); MEAN CORPUSCULAR HGB 29.1 pg (27.0-31.0); MEAN PLATELET VOLUME 10.5 fl (9.6-12.3); MONO # 0.2 10*3/uL (0.1-1.0); MONO % 3.1 % (3.0-9.0); NEUT # 5.4 10*3/uL (2.3-7.9); NEUT % 84.3 % (47.0-73.0); PLATELET COUNT AUTOMATED 309 10*3/uL (130-400); RED BLOOD COUNT 3.75 10*6/uL (4.10-5.10); RED CELL DISTRI WIDTH 14.1 % (0-14.5); WHITE BLOOD COUNT 6.4 10*3/uL (4.8-10.8)
[2019-12-23 06:38] LABS: ACT PARTIAL THROMBO TIME 31.9 SECONDS (20.0-32.1); INTERNATIONAL NORM RATIO 1.1 (2.0-3.5)
[2019-12-23 08:00] VITALS: BP 110/90
[2019-12-23 12:00] VITALS: BP 114/67
[2019-12-23 16:00] VITALS: BP 109/62
[2019-12-23 20:00] VITALS: BP 103/60
[2019-12-24] VITALS: BP 104/52
[2019-12-24 06:05] LABS: HEMATOCRIT 29.4 % (37.0-47.0); HEMOGLOBIN 9.4 g/dl (12.0-16.0); LYMPH % 8.9 % (27.0-41.0); MEAN CELL VOLUME 91.9 fl (81.0-99.0); MEAN CORPUSCULAR HGB 29.4 pg (27.0-31.0); MEAN PLATELET VOLUME 10.2 fl (9.6-12.3); MONO # 0.5 10*3/uL (0.1-1.0); MONO % 4.6 % (3.0-9.0); NEUT # 9.7 10*3/uL (2.3-7.9); PLATELET COUNT AUTOMATED 315 10*3/uL (130-400); WHITE BLOOD COUNT 11.2 10*3/uL (4.8-10.8)
[2019-12-24 06:20] LABS: BUN 19 mg/dl (7-24); CHLORIDE 112 mmol/L (98-107); CREATININE 1.02 mg/dL (0.55-1.02); SODIUM 135 mmol/L (136-145)
[2019-12-24 08:00] VITALS: BP 104/56
[2019-12-24] MEDS ORDERED: DOXYCYCLINE100 M3 PO (09:08)
[2019-12-24] MEDS ORDERED: PREDNISONE10 MG PO (09:08)
== END 2019-12-24 10:03 | disposition home or self-care (01) | DRG 193 ==
LOC: ED 16:43 → EDHOLD 22:46 → 4E 22:46
PROVIDERS: Family Medicine; Physician Assistant; Student in an Organized Health Care Education/Training Program; ADMIT Internal Medicine
DX: J18.9 Pneumonia, unspecified organism (principal); N17.0 Acute kidney failure with tubular necrosis; E43 Unspecified severe protein-calorie malnutrition; J44.0 Chronic obstructive pulmonary disease with (acute) lower respiratory infection; J44.1 Chronic obstructive pulmonary disease with (acute) exacerbation; E87.1 Hypo-osmolality and hyponatremia; I50.32 Chronic diastolic (congestive) heart failure; E11.65 Type 2 diabetes mellitus with hyperglycemia; E78.5 Hyperlipidemia, unspecified; E66.9 Obesity, unspecified; I11.0 Hypertensive heart disease with heart failure; I48.0 Paroxysmal atrial fibrillation; I95.9 Hypotension, unspecified; E87.8 Other disorders of electrolyte and fluid balance, not elsewhere classified; K21.9 Gastro-esophageal reflux disease without esophagitis; F32.9 Major depressive disorder, single episode, unspecified; F41.1 Generalized anxiety disorder; T38.0X5A Adverse effect of glucocorticoids and synthetic analogues, initial encounter; Y92.89 Other specified places as the place of occurrence of the external cause; Z99.81 Dependence on supplemental oxygen; Z68.32 Body mass index [BMI] 32.0-32.9, adult; Z79.82 Long term (current) use of aspirin; Z79.899 Other long term (current) drug therapy; Z98.51 Tubal ligation status; Z98.42 Cataract extraction status, left eye; Z98.41 Cataract extraction status, right eye; Z87.891 Personal history of nicotine dependence; Z80.9 Family history of malignant neoplasm, unspecified; Z81.1 Family history of alcohol abuse and dependence

== ENCOUNTER 2020-08-21 12:39 | Inpatient (IN) | payer MEDICARE, OTHER ==
[2020-08-21] VITALS (7 sets, daily range): BP systolic 117–182; BP diastolic 61–92
[~2020-08-21] VITALS: Ht 165.1 cm; Wt 79.5 kg
[2020-08-21 13:04] LABS: BASO % 0.4 % (0.0-1.0); EOS # 0.1 10*3/uL (0.0-0.4); EOS % 0.8 % (1.0-4.0); HEMATOCRIT 34.4 % (37.0-47.0); LYMPH # 1.6 10*3/uL (1.3-4.4); LYMPH % 21.2 % (27.0-41.0); MEAN CELL VOLUME 96.4 fl (81.0-99.0); MEAN CORPUSCULAR HGB CONC 31.1 g/dl (33.0-37.0); MEAN PLATELET VOLUME 10.1 fl (9.6-12.3); MONO # 0.8 10*3/uL (0.1-1.0); MONO % 10.1 % (3.0-9.0); NEUT # 5.1 10*3/uL (2.3-7.9); NEUT % 67.2 % (47.0-73.0); PLATELET COUNT AUTOMATED 243 10*3/uL (130-400); RED BLOOD COUNT 3.57 10*6/uL (4.10-5.10); RED CELL DISTRI WIDTH 14.2 % (0-14.5); WHITE BLOOD COUNT 7.5 10*3/uL (4.8-10.8)
[2020-08-21 13:15] LABS: ACT PARTIAL THROMBO TIME 33.9 SECONDS (20.0-32.1); INTERNATIONAL NORM RATIO 1.2 (2.0-3.5)
[2020-08-21 13:23] LABS: ALBUMIN 3.4 gm/dl (3.1-4.5); ALKALINE PHOSPHATASE 89 U/L (45-117); BUN 13 mg/dl (7-24); CHLORIDE 107 mmol/L (98-107); CREATININE 0.97 mg/dL (0.55-1.02); SGOT/AST 22 IU/L (3-35); SGPT/ALT 24 U/L (12-78); SODIUM 142 mmol/L (136-145)
[2020-08-21 13:33] LABS: TROPONIN I < 0.015 ng/ml (<0.045)
[2020-08-22] VITALS: BP 141/71
[2020-08-22 07:23] LABS: BASO % 0.6 % (0.0-1.0); EOS # 0.1 10*3/uL (0.0-0.4); EOS % 1.6 % (1.0-4.0); HEMATOCRIT 32.3 % (37.0-47.0); LYMPH # 1.7 10*3/uL (1.3-4.4); LYMPH % 34.4 % (27.0-41.0); MEAN CELL VOLUME 94.4 fl (81.0-99.0); MEAN CORPUSCULAR HGB 29.2 pg (27.0-31.0); MEAN PLATELET VOLUME 10.5 fl (9.6-12.3); MONO # 0.6 10*3/uL (0.1-1.0); MONO % 12.1 % (3.0-9.0); NEUT # 2.6 10*3/uL (2.3-7.9); NEUT % 51.3 % (47.0-73.0); PLATELET COUNT AUTOMATED 258 10*3/uL (130-400); RED BLOOD COUNT 3.42 10*6/uL (4.10-5.10); RED CELL DISTRI WIDTH 14.1 % (0-14.5)
[2020-08-22 07:30] LABS: ALBUMIN 3.1 gm/dl (3.1-4.5); BUN 13 mg/dl (7-24); CHLORIDE 104 mmol/L (98-107); POTASSIUM 3.4 mmol/L (3.5-5.1); SODIUM 142 mmol/L (136-145)
[2020-08-22 07:39] LABS: ALKALINE PHOSPHATASE 73 U/L (45-117); CHOLESTEROL 139 mg/dL (<200); CREATININE 0.96 mg/dL (0.55-1.02); FREE T4 1.15 ng/dl (0.76-1.46); HDL CHOLESTEROL 65 mg/dl (40-60); LDL CHOLESTEROL 57 mg/dL (9-159); SGOT/AST 14 IU/L (3-35); SGPT/ALT 19 U/L (12-78); TOTAL PROTEIN 6.2 gm/dL (6.4-8.2); TRIGLYCERIDES 85 mg/dl (<150); VLDL CHOLESTEROL 17 mg/dL (6-40)
[2020-08-22 08:00] VITALS: BP 114/68
[2020-08-22 08:08] LABS: VITAMIN D, 25-HYDROXY 48.7 ng/mL (30-100)
[2020-08-22 12:00] VITALS: BP 137/74
[2020-08-22 16:00] VITALS: BP 138/64
[2020-08-22 20:00] VITALS: BP 138/76
[2020-08-23] VITALS: BP 117/58
[2020-08-23 08:00] VITALS: BP 134/59
[2020-08-23] MEDS ORDERED: K-TAB20 MEQ PO (11:50)
[2020-08-23 12:00] VITALS: BP 123/51
== END 2020-08-23 15:45 | disposition home or self-care (01) | DRG 292 ==
LOC: ED 12:39 → EDHOLD 15:26 → 4E 15:26
PROVIDERS: Emergency Medicine; Registered Nurse; ADMIT Internal Medicine; ATTEND Internal Medicine
DX: I11.0 Hypertensive heart disease with heart failure (principal); J96.11 Chronic respiratory failure with hypoxia; E44.0 Moderate protein-calorie malnutrition; D68.59 Other primary thrombophilia; I50.33 Acute on chronic diastolic (congestive) heart failure; J44.9 Chronic obstructive pulmonary disease, unspecified; E78.2 Mixed hyperlipidemia; I48.0 Paroxysmal atrial fibrillation; Z20.828 Contact with and (suspected) exposure to other viral communicable diseases; E66.09 Other obesity due to excess calories; E11.65 Type 2 diabetes mellitus with hyperglycemia; K21.9 Gastro-esophageal reflux disease without esophagitis; F32.9 Major depressive disorder, single episode, unspecified; F41.1 Generalized anxiety disorder; Z99.81 Dependence on supplemental oxygen; Z68.33 Body mass index [BMI] 33.0-33.9, adult; Z98.51 Tubal ligation status; Z87.891 Personal history of nicotine dependence; Z81.1 Family history of alcohol abuse and dependence; Z80.8 Family history of malignant neoplasm of other organs or systems; Z87.01 Personal history of pneumonia (recurrent); Z79.899 Other long term (current) drug therapy

== ENCOUNTER 2020-11-25 21:25 | Emergency (ER) | payer MEDICARE, OTHER ==
[~2020-11-25] VITALS: Ht 167.6 cm; Wt 80.7 kg
[~2020-11-25 21:25] MED LIST changes: +K-TAB20 MEQ PO
[2020-11-25] MEDS ORDERED: BUSPIRONE10 MG PO (21:38)
[2020-11-25 22:32] LABS: BASO # 0.1 10*3/uL (0.0-0.1); BASO % 0.7 % (0.0-1.0); EOS # 0.3 10*3/uL (0.0-0.4); HEMATOCRIT 35.4 % (37.0-47.0); LYMPH # 2.4 10*3/uL (1.3-4.4); LYMPH % 26.7 % (27.0-41.0); MEAN CELL VOLUME 94.9 fl (81.0-99.0); MEAN CORPUSCULAR HGB 29.8 pg (27.0-31.0); MEAN CORPUSCULAR HGB CONC 31.4 g/dl (33.0-37.0); MEAN PLATELET VOLUME 10.3 fl (9.6-12.3); MONO # 0.9 10*3/uL (0.1-1.0); NEUT # 5.3 10*3/uL (2.3-7.9); NEUT % 59.2 % (47.0-73.0); PLATELET COUNT AUTOMATED 296 10*3/uL (130-400); RED BLOOD COUNT 3.73 10*6/uL (4.10-5.10); RED CELL DISTRI WIDTH 13.3 % (0-14.5)
[2020-11-25 22:58] LABS: BILIRUBIN Negative (Negative); BLOOD Negative (Negative); CLARITY Clear (Clear); COLOR Yellow (Yellow); GLUCOSE Negative (Negative); KETONE Negative (Negative); LEUKO ESTERASE 2+ (Negative); NITRITE Negative (Negative); SPECIFIC GRAVITY <= 1.005 (1.001-1.030); UROBILINOGEN 0.2 E.U./dl (0.0-1.0)
[2020-11-25 22:59] LABS: ALBUMIN 3.4 gm/dl (3.1-4.5); ALKALINE PHOSPHATASE 111 U/L (45-117); BUN 27 mg/dl (7-24); CHLORIDE 102 mmol/L (98-107); CREATININE 1.04 mg/dL (0.55-1.02); LIPASE 132 U/L (73-393); POTASSIUM 3.9 mmol/L (3.5-5.1); SGOT/AST 16 IU/L (3-35); SGPT/ALT 11 U/L (12-78); SODIUM 140 mmol/L (136-145); TOTAL PROTEIN 7.4 gm/dL (6.4-8.2)
[2020-11-25 23:07] LABS: BACTERIA 2+
[2020-11-26 05:41] VITALS: BP 134/64
== END 2020-11-26 05:47 | disposition short-term general hospital (02) ==
LOC: ED 21:25
PROVIDERS: Emergency Medicine
DX: S22.039A Unspecified fracture of third thoracic vertebra, initial encounter for closed fracture (principal); S22.069A Unspecified fracture of T7-T8 vertebra, initial encounter for closed fracture; R10.11 Right upper quadrant pain; I48.91 Unspecified atrial fibrillation; F32.9 Major depressive disorder, single episode, unspecified; F41.9 Anxiety disorder, unspecified; M19.90 Unspecified osteoarthritis, unspecified site; E78.00 Pure hypercholesterolemia, unspecified; K21.9 Gastro-esophageal reflux disease without esophagitis; E11.9 Type 2 diabetes mellitus without complications; I11.0 Hypertensive heart disease with heart failure; I50.32 Chronic diastolic (congestive) heart failure; E66.9 Obesity, unspecified; Z79.899 Other long term (current) drug therapy; Z79.82 Long term (current) use of aspirin; Z87.891 Personal history of nicotine dependence; Z98.51 Tubal ligation status; X50.0XXA Overexertion from strenuous movement or load, initial encounter; Y93.89 Activity, other specified; Y92.89 Other specified places as the place of occurrence of the external cause; Y99.8 Other external cause status

== ENCOUNTER 2020-12-03 22:22 | Inpatient (IN) | payer MEDICARE, OTHER ==
[~2020-12-03] VITALS: Ht 167.6 cm; Wt 78.7 kg
[~2020-12-03 22:22] MED LIST changes: +BUSPIRONE10 MG PO
[2020-12-03 22:26] VITALS: BP 135/68
[2020-12-04 02:04] VITALS: BP 141/67
[2020-12-04 02:10] VITALS: BP 137/65
[2020-12-04] MEDS ORDERED: LASIX20 MG PO (03:15)
[2020-12-04] MEDS ORDERED: CYCLOBENZAPRINE10 MG PO (03:16)
[2020-12-04] MEDS ORDERED: POTASSIUM CHLO10 ME4 PO (03:17)
[2020-12-04] MEDS ORDERED: ACID REDUCER20 MG PO (03:20)
[2020-12-04] MEDS ORDERED: SLOW RELEASE I142 MG PO (03:23)
[2020-12-04 06:26] LABS: BASO # 0.1 10*3/uL (0.0-0.1); BASO % 0.7 % (0.0-1.0); EOS # 0.2 10*3/uL (0.0-0.4); EOS % 2.8 % (1.0-4.0); HEMATOCRIT 33.3 % (37.0-47.0); LYMPH # 2.2 10*3/uL (1.3-4.4); LYMPH % 26.7 % (27.0-41.0); MEAN CELL VOLUME 95.1 fl (81.0-99.0); MEAN CORPUSCULAR HGB 29.4 pg (27.0-31.0); MEAN CORPUSCULAR HGB CONC 30.9 g/dl (33.0-37.0); MEAN PLATELET VOLUME 10.9 fl (9.6-12.3); MONO # 1.1 10*3/uL (0.1-1.0); NEUT # 4.5 10*3/uL (2.3-7.9); NEUT % 55.9 % (47.0-73.0); PLATELET COUNT AUTOMATED 231 10*3/uL (130-400); RED CELL DISTRI WIDTH 13.8 % (0-14.5); WHITE BLOOD COUNT 8.1 10*3/uL (4.8-10.8)
[2020-12-04 06:51] LABS: ALBUMIN 3.1 gm/dl (3.1-4.5); BUN 17 mg/dl (7-24); CHLORIDE 102 mmol/L (98-107); CHOLESTEROL 152 mg/dL (<200); CREATININE 0.86 mg/dL (0.55-1.02); POTASSIUM 3.9 mmol/L (3.5-5.1); SGOT/AST 15 IU/L (3-35); SGPT/ALT 10 U/L (12-78); SODIUM 140 mmol/L (136-145); TOTAL PROTEIN 6.8 gm/dL (6.4-8.2); TRIGLYCERIDES 94 mg/dl (<150); VLDL CHOLESTEROL 19 mg/dL (6-40)
[2020-12-04 06:53] LABS: ALKALINE PHOSPHATASE 105 U/L (45-117); HDL CHOLESTEROL 78 mg/dl (40-60); LDL CHOLESTEROL 55 mg/dL (9-159)
[2020-12-04 07:50] VITALS: BP 132/62
[2020-12-04 11:41] VITALS: BP 128/68
[2020-12-04 16:00] VITALS: BP 129/70
[2020-12-04 20:00] VITALS: BP 131/75
[2020-12-05] VITALS: BP 126/63
[2020-12-05 06:12] LABS: ALBUMIN 2.9 gm/dl (3.1-4.5); ALKALINE PHOSPHATASE 102 U/L (45-117); BUN 19 mg/dl (7-24); CHLORIDE 103 mmol/L (98-107); CREATININE 0.98 mg/dL (0.55-1.02); POTASSIUM 4.2 mmol/L (3.5-5.1); SGOT/AST 19 IU/L (3-35); SGPT/ALT 13 U/L (12-78); SODIUM 140 mmol/L (136-145); TOTAL PROTEIN 6.5 gm/dL (6.4-8.2)
[2020-12-05 06:16] LABS: BASO # 0.1 10*3/uL (0.0-0.1); BASO % 1.1 % (0.0-1.0); EOS # 0.3 10*3/uL (0.0-0.4); EOS % 3.8 % (1.0-4.0); HEMATOCRIT 33.1 % (37.0-47.0); LYMPH # 2.2 10*3/uL (1.3-4.4); LYMPH % 29.7 % (27.0-41.0); MEAN CELL VOLUME 95.9 fl (81.0-99.0); MEAN CORPUSCULAR HGB 29.9 pg (27.0-31.0); MEAN CORPUSCULAR HGB CONC 31.1 g/dl (33.0-37.0); MEAN PLATELET VOLUME 10.7 fl (9.6-12.3); MONO % 13.2 % (3.0-9.0); NEUT # 3.8 10*3/uL (2.3-7.9); NEUT % 51.3 % (47.0-73.0); PLATELET COUNT AUTOMATED 216 10*3/uL (130-400); RED BLOOD COUNT 3.45 10*6/uL (4.10-5.10); RED CELL DISTRI WIDTH 13.9 % (0-14.5); WHITE BLOOD COUNT 7.4 10*3/uL (4.8-10.8)
[2020-12-05 08:00] VITALS: BP 139/66
[2020-12-05 12:00] VITALS: BP 131/62
[2020-12-05 16:00] VITALS: BP 135/64
[2020-12-05 20:00] VITALS: BP 156/57
[2020-12-06] VITALS: BP 115/68
[2020-12-06 06:25] LABS: BASO % 0.2 % (0.0-1.0); HEMATOCRIT 33.6 % (37.0-47.0); LYMPH # 1.6 10*3/uL (1.3-4.4); LYMPH % 19.8 % (27.0-41.0); MEAN CELL VOLUME 93.6 fl (81.0-99.0); MEAN CORPUSCULAR HGB 30.1 pg (27.0-31.0); MEAN CORPUSCULAR HGB CONC 32.1 g/dl (33.0-37.0); MEAN PLATELET VOLUME 10.6 fl (9.6-12.3); MONO # 0.9 10*3/uL (0.1-1.0); NEUT # 5.6 10*3/uL (2.3-7.9); PLATELET COUNT AUTOMATED 226 10*3/uL (130-400); RED BLOOD COUNT 3.59 10*6/uL (4.10-5.10); RED CELL DISTRI WIDTH 13.5 % (0-14.5); WHITE BLOOD COUNT 8.3 10*3/uL (4.8-10.8)
[2020-12-06 06:42] LABS: ALBUMIN 3.1 gm/dl (3.1-4.5); ALKALINE PHOSPHATASE 114 U/L (45-117); BUN 16 mg/dl (7-24); CHLORIDE 102 mmol/L (98-107); CREATININE 0.92 mg/dL (0.55-1.02); POTASSIUM 4.3 mmol/L (3.5-5.1); SGOT/AST 20 IU/L (3-35); SGPT/ALT 14 U/L (12-78); SODIUM 137 mmol/L (136-145); TOTAL PROTEIN 7.1 gm/dL (6.4-8.2)
[2020-12-06 07:20] VITALS: BP 132/68
[2020-12-06 12:10] VITALS: BP 134/66
[2020-12-06] MEDS ORDERED: PREDNISONE10 MG PO (12:23)
== END 2020-12-06 16:35 | disposition home or self-care (01) | DRG 206 ==
LOC: ED 22:22 → 5E 12-04 01:20 → EDHOLD 12-04 01:20 → 5E 12-04 01:28
PROVIDERS: Internal Medicine; ADMIT Emergency Medicine; ATTEND Emergency Medicine
DX: M94.0 Chondrocostal junction syndrome [Tietze] (principal); E87.3 Alkalosis; E44.0 Moderate protein-calorie malnutrition; I50.32 Chronic diastolic (congestive) heart failure; J96.10 Chronic respiratory failure, unspecified whether with hypoxia or hypercapnia; D64.9 Anemia, unspecified; E83.52 Hypercalcemia; Z20.822 Contact with and (suspected) exposure to COVID-19; J44.9 Chronic obstructive pulmonary disease, unspecified; I48.91 Unspecified atrial fibrillation; F32.9 Major depressive disorder, single episode, unspecified; F41.1 Generalized anxiety disorder; I11.0 Hypertensive heart disease with heart failure; K21.9 Gastro-esophageal reflux disease without esophagitis; E78.5 Hyperlipidemia, unspecified; E66.9 Obesity, unspecified; E11.9 Type 2 diabetes mellitus without complications; K80.50 Calculus of bile duct without cholangitis or cholecystitis without obstruction; E66.3 Overweight; Z98.51 Tubal ligation status; Z87.891 Personal history of nicotine dependence; Z98.42 Cataract extraction status, left eye; Z98.41 Cataract extraction status, right eye; Z81.1 Family history of alcohol abuse and dependence; Z68.28 Body mass index [BMI] 28.0-28.9, adult

== ENCOUNTER 2020-12-20 22:45 | Emergency (ER) | payer MEDICARE, OTHER ==
[~2020-12-20 22:45] MED LIST changes: +ACID REDUCER20 MG PO; +CYCLOBENZAPRINE10 MG PO; +POTASSIUM CHLO10 ME4 PO; +SLOW RELEASE I142 MG PO
[2020-12-20 22:56] VITALS: BP 126/76
== END 2020-12-21 02:35 | disposition home or self-care (01) ==
LOC: ED 22:45
DX: M79.18 Myalgia, other site (principal); F41.9 Anxiety disorder, unspecified; I11.0 Hypertensive heart disease with heart failure; I50.9 Heart failure, unspecified; F32.9 Major depressive disorder, single episode, unspecified; K21.9 Gastro-esophageal reflux disease without esophagitis; I48.91 Unspecified atrial fibrillation; E78.00 Pure hypercholesterolemia, unspecified; Z79.899 Other long term (current) drug therapy; Z98.51 Tubal ligation status; Z98.890 Other specified postprocedural states

== ENCOUNTER 2020-12-23 20:35 | Inpatient (IN) | payer MEDICARE, OTHER ==
[~2020-12-23] VITALS: Ht 172.7 cm; Wt 73.9 kg
[2020-12-23 20:40] VITALS: BP 133/80
[2020-12-23 23:21] LABS: BASO % 0.3 % (0.0-1.0); EOS # 0.3 10*3/uL (0.0-0.4); EOS % 1.9 % (1.0-4.0); HEMATOCRIT 35.4 % (37.0-47.0); LYMPH # 1.9 10*3/uL (1.3-4.4); LYMPH % 14.3 % (27.0-41.0); MEAN CELL VOLUME 95.7 fl (81.0-99.0); MEAN CORPUSCULAR HGB CONC 31.4 g/dl (33.0-37.0); MEAN PLATELET VOLUME 11.1 fl (9.6-12.3); MONO # 1.1 10*3/uL (0.1-1.0); MONO % 8.2 % (3.0-9.0); NEUT # 9.9 10*3/uL (2.3-7.9); NEUT % 73.3 % (47.0-73.0); NUCLEATED RED BLOOD CELL 0.1 10*3/uL (0.0-0.0); NUCLEATED RED BLOOD CELL 0.4 % (0.0-0.0); PLATELET COUNT AUTOMATED 106 10*3/uL (130-400); RED CELL DISTRI WIDTH 14.7 % (0-14.5); WHITE BLOOD COUNT 13.5 10*3/uL (4.8-10.8)
[2020-12-23 23:38] LABS: ALBUMIN 3.1 gm/dl (3.1-4.5); ALKALINE PHOSPHATASE 123 U/L (45-117); BUN 21 mg/dl (7-24); CHLORIDE 103 mmol/L (98-107); CREATININE 0.98 mg/dL (0.55-1.02); POTASSIUM 3.8 mmol/L (3.5-5.1); SGOT/AST 34 IU/L (3-35); SGPT/ALT 18 U/L (12-78); SODIUM 140 mmol/L (136-145); TOTAL PROTEIN 6.9 gm/dL (6.4-8.2); TROPONIN I 0.015 ng/ml (<0.045)
[2020-12-24 05:46] LABS: BILIRUBIN Negative (Negative); BLOOD Negative (Negative); CLARITY Cloudy (Clear); COLOR Yellow (Yellow); GLUCOSE Negative (Negative); KETONE 1+ (Negative); LEUKO ESTERASE 2+ (Negative); NITRITE Negative (Negative); PH 6.5 (4.5-8.0); SPECIFIC GRAVITY 1.025 (1.001-1.030)
[2020-12-24 06:07] LABS: WBC TNTC wbc/hpf (0-5)
[2020-12-24 06:12] VITALS: BP 152/89
[2020-12-24 06:14] LABS: BACTERIA 3+; CALCIUM OXALATE CRYSTALS 2+; EPITHELIAL CELLS 16-20
[2020-12-24 08:00] VITALS: BP 160/70
[2020-12-24 12:00] VITALS: BP 160/73
[2020-12-24 16:00] VITALS: BP 127/56
[2020-12-24 20:00] VITALS: BP 150/76
[2020-12-25] VITALS: BP 147/66
[2020-12-25 07:14] LABS: HEMATOCRIT 35.9 % (37.0-47.0); MEAN CORPUSCULAR HGB 29.6 pg (27.0-31.0); MEAN CORPUSCULAR HGB CONC 31.2 g/dl (33.0-37.0); MEAN PLATELET VOLUME 10.7 fl (9.6-12.3); NUCLEATED RED BLOOD CELL 0.1 10*3/uL (0.0-0.0); NUCLEATED RED BLOOD CELL 1.2 % (0.0-0.0); RED BLOOD COUNT 3.78 10*6/uL (4.10-5.10); WHITE BLOOD COUNT 10.2 10*3/uL (4.8-10.8)
[2020-12-25 07:18] LABS: PLATELET COUNT AUTOMATED 74 10*3/uL (130-400)
[2020-12-25 07:23] LABS: ACT PARTIAL THROMBO TIME 33.6 SECONDS (20.0-32.1); INTERNATIONAL NORM RATIO 1.3 (2.0-3.5)
[2020-12-25 07:30] LABS: ALBUMIN 3.1 gm/dl (3.1-4.5); ALKALINE PHOSPHATASE 127 U/L (45-117); BUN 19 mg/dl (7-24); CHLORIDE 104 mmol/L (98-107); CREATININE 0.84 mg/dL (0.55-1.02); FREE T4 1.31 ng/dl (0.76-1.46); POTASSIUM 3.8 mmol/L (3.5-5.1); SGOT/AST 37 IU/L (3-35); SGPT/ALT 21 U/L (12-78); SODIUM 140 mmol/L (136-145); TOTAL PROTEIN 6.9 gm/dL (6.4-8.2)
[2020-12-25 08:00] VITALS: BP 141/82
[2020-12-25 08:24] LABS: BASOPHILS 1 % (0-1); TOTAL CELLS COUNTED 100 #CELLS
[2020-12-25 08:28] LABS: BURR CELLS FEW; OVALOCYTES FEW; PLATELET SUFFICIENCY LOW (NORMAL); SCHISTOCYTES FEW
[2020-12-25 12:00] VITALS: BP 137/72
[2020-12-25 16:00] VITALS: BP 129/68
[2020-12-25 20:00] VITALS: BP 134/66
[2020-12-26] VITALS: BP 117/55
[2020-12-26] MEDS ORDERED: IBANDRONATE SO150 M1 PO (01:57)
[2020-12-26 08:00] VITALS: BP 133/67
[2020-12-26 12:00] VITALS: BP 140/57
[2020-12-26 16:00] VITALS: BP 144/62
[2020-12-26 20:00] VITALS: BP 131/64
[2020-12-27] VITALS: BP 140/58
[2020-12-27 08:00] VITALS: BP 150/85
[2020-12-27 12:00] VITALS: BP 121/67
[2020-12-27 16:00] VITALS: BP 134/65
[2020-12-27 20:00] VITALS: BP 132/67
[2020-12-28] VITALS: BP 134/65
[2020-12-28 08:00] VITALS: BP 147/84
[2020-12-28] MEDS ORDERED: GUAIFENESIN-DM 15 ML PO (11:58)
[2020-12-28] MEDS ORDERED: HYDROCODONE-AC1 EAC1 PO (11:58)
[2020-12-28] MEDS ORDERED: ZITHROMAX500 MG PO (11:58)
== END 2020-12-28 14:10 | DRG 871 ==
LOC: ED 20:35 → EDHOLD 12-24 05:34 → 5E 12-24 05:34
PROVIDERS: Emergency Medicine; Internal Medicine; ADMIT Internal Medicine; ATTEND Internal Medicine
DX: A41.9 Sepsis, unspecified organism (principal); J96.21 Acute and chronic respiratory failure with hypoxia; J96.22 Acute and chronic respiratory failure with hypercapnia; I50.32 Chronic diastolic (congestive) heart failure; I48.11 Longstanding persistent atrial fibrillation; J44.1 Chronic obstructive pulmonary disease with (acute) exacerbation; E44.0 Moderate protein-calorie malnutrition; C90.00 Multiple myeloma not having achieved remission; I11.0 Hypertensive heart disease with heart failure; D64.9 Anemia, unspecified; D69.6 Thrombocytopenia, unspecified; F41.1 Generalized anxiety disorder; K21.9 Gastro-esophageal reflux disease without esophagitis; E55.9 Vitamin D deficiency, unspecified; E78.5 Hyperlipidemia, unspecified; F32.9 Major depressive disorder, single episode, unspecified; E66.3 Overweight; E78.2 Mixed hyperlipidemia; M79.18 Myalgia, other site; N63.20 Unspecified lump in the left breast, unspecified quadrant; I48.91 Unspecified atrial fibrillation; M47.812 Spondylosis without myelopathy or radiculopathy, cervical region; Z20.822 Contact with and (suspected) exposure to COVID-19; E11.65 Type 2 diabetes mellitus with hyperglycemia; S22.009S Unspecified fracture of unspecified thoracic vertebra, sequela; Z99.81 Dependence on supplemental oxygen; Z79.899 Other long term (current) drug therapy; Z79.82 Long term (current) use of aspirin; Z98.51 Tubal ligation status; Z68.24 Body mass index [BMI] 24.0-24.9, adult

== ENCOUNTER → 2021-01-03 | Outpatient (CLI) | payer MEDICARE, OTHER ==
[~2021-01-03] MED LIST changes: +GUAIFENESIN-DM 15 ML PO; +HYDROCODONE-AC1 EAC1 PO; +IBANDRONATE SO150 M1 PO; +ZITHROMAX500 MG PO
== END | disposition home or self-care (01) ==
LOC: NM 10:18 → MAMMO 13:00
PROVIDERS: ATTEND Registered Nurse
DX: N63.21 Unspecified lump in the left breast, upper outer quadrant (principal); N64.89 Other specified disorders of breast; R59.0 Localized enlarged lymph nodes; G95.89 Other specified diseases of spinal cord

== ENCOUNTER 2021-01-29 00:31 | Inpatient (IN) | payer MEDICARE, OTHER ==
[~2021-01-29] VITALS: Ht 167.6 cm; Wt 70.5 kg
[2021-01-29] VITALS (10 sets, daily range): BP systolic 119–139; BP diastolic 59–72
[2021-01-29 01:28] LABS: MEAN CELL VOLUME 99.7 fl (81.0-99.0); MEAN CORPUSCULAR HGB 30.5 pg (27.0-31.0); MEAN CORPUSCULAR HGB CONC 30.6 g/dl (33.0-37.0); MEAN PLATELET VOLUME 10.5 fl (9.6-12.3); NUCLEATED RED BLOOD CELL 0.8 10*3/uL (0.0-0.0); NUCLEATED RED BLOOD CELL 6.5 % (0.0-0.0); PLATELET COUNT AUTOMATED 204 10*3/uL (130-400); RED BLOOD COUNT 3.11 10*6/uL (4.10-5.10); RED CELL DISTRI WIDTH 18.6 % (0-14.5); WHITE BLOOD COUNT 11.7 10*3/uL (4.8-10.8)
[2021-01-29 01:52] LABS: BASOPHILS 1 % (0-1); TOTAL CELLS COUNTED 100 #CELLS
[2021-01-29 01:53] LABS: ALBUMIN 2.3 gm/dl (3.1-4.5); ALKALINE PHOSPHATASE 187 U/L (45-117); BUN 20 mg/dl (7-24); CHLORIDE 103 mmol/L (98-107); CREATININE 0.91 mg/dL (0.55-1.02); POTASSIUM 3.9 mmol/L (3.5-5.1); SGOT/AST 52 IU/L (3-35); SGPT/ALT 17 U/L (12-78); SODIUM 138 mmol/L (136-145); TOTAL PROTEIN 6.4 gm/dL (6.4-8.2); TROPONIN I 0.018 ng/ml (<0.045)
[2021-01-29 01:54] LABS: OVALOCYTES FEW; SCHISTOCYTES FEW
[2021-01-29 01:55] LABS: BURR CELLS FEW; PLATELET SUFFICIENCY NORMAL (NORMAL)
[2021-01-29] MEDS ORDERED: REMERON SOLTAB15 MG PO (04:28)
[2021-01-29] MEDS ORDERED: BUSPAR5 MG PO (04:29)
[2021-01-29] MEDS ORDERED: METOPROLOL SUCC25 M2 PO (04:30)
[2021-01-29] MEDS ORDERED: OMEPRAZOLE MAGN20 MG PO (04:32)
[2021-01-29] MEDS ORDERED: Ipratropium Brom3 ML INH (05:06)
[2021-01-29] MEDS ORDERED: K-TAB10 MEQ PO (05:11)
[2021-01-30] VITALS: BP 115/59
[2021-01-30 05:58] LABS: HEMATOCRIT 29.3 % (37.0-47.0); MEAN CELL VOLUME 99.3 fl (81.0-99.0); MEAN CORPUSCULAR HGB 30.8 pg (27.0-31.0); MEAN CORPUSCULAR HGB CONC 31.1 g/dl (33.0-37.0); MEAN PLATELET VOLUME 10.3 fl (9.6-12.3); NUCLEATED RED BLOOD CELL 0.8 10*3/uL (0.0-0.0); NUCLEATED RED BLOOD CELL 7.2 % (0.0-0.0); PLATELET COUNT AUTOMATED 246 10*3/uL (130-400); RED BLOOD COUNT 2.95 10*6/uL (4.10-5.10); RED CELL DISTRI WIDTH 18.6 % (0-14.5); WHITE BLOOD COUNT 10.8 10*3/uL (4.8-10.8)
[2021-01-30 06:29] LABS: ALBUMIN 2.4 gm/dl (3.1-4.5); BUN 25 mg/dl (7-24); CHLORIDE 99 mmol/L (98-107); POTASSIUM 4.6 mmol/L (3.5-5.1); SODIUM 137 mmol/L (136-145)
[2021-01-30 06:35] LABS: ALKALINE PHOSPHATASE 179 U/L (45-117); CREATININE 0.96 mg/dL (0.55-1.02); SGOT/AST 49 IU/L (3-35); SGPT/ALT 18 U/L (12-78); TOTAL PROTEIN 6.6 gm/dL (6.4-8.2)
[2021-01-30 06:59] LABS: TOTAL CELLS COUNTED 100 #CELLS
[2021-01-30 07:00] LABS: PLATELET SUFFICIENCY NORMAL (NORMAL); POLYCHROMASIA SLIGHT; SCHISTOCYTES FEW
[2021-01-30 08:00] VITALS: BP 108/68
[2021-01-30 09:54] LABS: ABG BASE EXCESS 5.1 mmol/L (-2.0-2.0); ARTERIAL BLOOD GAS PH 7.342 (7.35-7.45); ARTERIAL BLOOD GAS PO2 76.9 (80-90)
[2021-01-30 12:00] VITALS: BP 125/65
[2021-01-30 12:52] LABS: ABG BASE EXCESS 3.6 mmol/L (-2.0-2.0); ARTERIAL BLOOD GAS PH 7.347 (7.35-7.45); ARTERIAL BLOOD GAS PO2 89.1 (80-90)
[2021-01-30 16:00] VITALS: BP 131/59
[2021-01-30 20:00] VITALS: BP 127/52
[2021-01-30 23:50] VITALS: BP 112/51
[2021-01-31 07:45] LABS: ARTERIAL BLOOD GAS PH 7.3 (7.35-7.45)
[2021-01-31 08:00] VITALS: BP 134/70
[2021-01-31 12:00] VITALS: BP 113/68
[2021-01-31 16:00] VITALS: BP 133/65
[2021-01-31 20:00] VITALS: BP 120/53
[2021-02-01] VITALS: BP 124/61
[2021-02-01 08:00] VITALS: BP 132/57
[2021-02-01 12:00] VITALS: BP 126/51
[2021-02-01] MEDS ORDERED: DOXYCYCLINE MO100 M1 PO (15:17)
[2021-02-01] MEDS ORDERED: FUROSEMIDE40 MG PO (15:17)
[2021-02-01] MEDS ORDERED: PREDNISONE10 MG PO (15:17)
== END 2021-02-01 15:47 | DRG 291 ==
LOC: ED 00:31 → EDHOLD 03:42 → 5E 03:42
PROVIDERS: Emergency Medicine; Internal Medicine; Internal Medicine Critical Care Medicine; ADMIT Student in an Organized Health Care Education/Training Program; ATTEND Student in an Organized Health Care Education/Training Program
PROC: 5A09357 Assistance with Respiratory Ventilation, Less than 24 Consecutive Hours, Continuous Positive Airway Pressure (ICD-10-PCS; principal; 2021-01-30)
PROC: 5A09357 Assistance with Respiratory Ventilation, Less than 24 Consecutive Hours, Continuous Positive Airway Pressure (ICD-10-PCS; 2021-01-31)
PROC: 5A09357 Assistance with Respiratory Ventilation, Less than 24 Consecutive Hours, Continuous Positive Airway Pressure (ICD-10-PCS; 2021-02-01)
DX: I11.0 Hypertensive heart disease with heart failure (principal); E43 Unspecified severe protein-calorie malnutrition; J96.21 Acute and chronic respiratory failure with hypoxia; J96.22 Acute and chronic respiratory failure with hypercapnia; J44.1 Chronic obstructive pulmonary disease with (acute) exacerbation; I48.21 Permanent atrial fibrillation; I50.33 Acute on chronic diastolic (congestive) heart failure; E78.5 Hyperlipidemia, unspecified; F32.9 Major depressive disorder, single episode, unspecified; E11.65 Type 2 diabetes mellitus with hyperglycemia; Z20.822 Contact with and (suspected) exposure to COVID-19; Z66 Do not resuscitate; Z51.5 Encounter for palliative care; M47.892 Other spondylosis, cervical region; K21.9 Gastro-esophageal reflux disease without esophagitis; F41.1 Generalized anxiety disorder; E66.3 Overweight; D72.829 Elevated white blood cell count, unspecified; D53.9 Nutritional anemia, unspecified; R74.01 Elevation of levels of liver transaminase levels; E55.9 Vitamin D deficiency, unspecified; R74.8 Abnormal levels of other serum enzymes; R79.89 Other specified abnormal findings of blood chemistry; Z98.51 Tubal ligation status; Z98.42 Cataract extraction status, left eye; Z98.41 Cataract extraction status, right eye; Z81.1 Family history of alcohol abuse and dependence; Z87.81 Personal history of (healed) traumatic fracture; Z99.81 Dependence on supplemental oxygen; Z68.25 Body mass index [BMI] 25.0-25.9, adult

== ENCOUNTER 2021-02-13 13:41 | Inpatient (IN) | payer MEDICARE, OTHER ==
[2021-02-13] VITALS (13 sets, daily range): BP systolic 57–95; BP diastolic 28–62
[~2021-02-13] VITALS: Ht 154.9 cm; Wt 73.0 kg
[~2021-02-13 13:41] MED LIST changes: +BUSPAR5 MG PO; +DOXYCYCLINE MO100 M1 PO; +FUROSEMIDE40 MG PO; +Ipratropium Brom3 ML INH; +K-TAB10 MEQ PO; +REMERON SOLTAB15 MG PO
[2021-02-13 14:44] LABS: HEMATOCRIT 30.9 % (37.0-47.0); MEAN CORPUSCULAR HGB 30.2 pg (27.0-31.0); MEAN CORPUSCULAR HGB CONC 29.1 g/dl (33.0-37.0); MEAN PLATELET VOLUME 12.5 fl (9.6-12.3); NUCLEATED RED BLOOD CELL 11.6 % (0.0-0.0); NUCLEATED RED BLOOD CELL 2.3 10*3/uL (0.0-0.0); PLATELET COUNT AUTOMATED 170 10*3/uL (130-400); RED BLOOD COUNT 2.98 10*6/uL (4.10-5.10); RED CELL DISTRI WIDTH 18.1 % (0-14.5); WHITE BLOOD COUNT 20.2 10*3/uL (4.8-10.8)
[2021-02-13 15:00] LABS: ALBUMIN 2.6 gm/dl (3.1-4.5); CREATININE 3.24 mg/dL (0.55-1.02)
[2021-02-13 15:01] LABS: ACT PARTIAL THROMBO TIME 26.5 SECONDS (20.0-32.1); INTERNATIONAL NORM RATIO 1.3 (2.0-3.5); TROPONIN I 0.021 ng/ml (<0.045)
[2021-02-13 15:06] LABS: MEAN CELL VOLUME 103.7 fl (81.0-99.0)
[2021-02-13 15:20] LABS: BURR CELLS FEW; OVALOCYTES FEW; PLATELET SUFFICIENCY NORMAL (NORMAL); TOTAL CELLS COUNTED 100 #CELLS
[2021-02-13 16:35] LABS: BILIRUBIN Negative (Negative); BLOOD Negative (Negative); CLARITY Cloudy (Clear); COLOR Yellow (Yellow); GLUCOSE Trace (Negative); KETONE Negative (Negative); LEUKO ESTERASE Negative (Negative); NITRITE Negative (Negative); UROBILINOGEN 0.2 E.U./dl (0.0-1.0)
[2021-02-13 16:45] LABS: BACTERIA 3+; WBC 0-2 wbc/hpf (0-5)
== END 2021-02-13 18:08 | DRG 871 ==
LOC: ED 13:41 → EDHOLD 16:12
PROVIDERS: Emergency Medicine; ADMIT Family Medicine; ATTEND Family Medicine
DX: A41.9 Sepsis, unspecified organism (principal); G93.41 Metabolic encephalopathy; K85.90 Acute pancreatitis without necrosis or infection, unspecified; J96.01 Acute respiratory failure with hypoxia; N17.0 Acute kidney failure with tubular necrosis; E87.2 Acidosis; E44.0 Moderate protein-calorie malnutrition; F33.9 Major depressive disorder, recurrent, unspecified; I50.32 Chronic diastolic (congestive) heart failure; Z66 Do not resuscitate; Z51.5 Encounter for palliative care; R65.20 Severe sepsis without septic shock; R33.9 Retention of urine, unspecified; Z87.891 Personal history of nicotine dependence; Z79.82 Long term (current) use of aspirin; Z79.899 Other long term (current) drug therapy; I95.89 Other hypotension; E86.1 Hypovolemia; D53.9 Nutritional anemia, unspecified; E78.2 Mixed hyperlipidemia; Z99.81 Dependence on supplemental oxygen; K21.9 Gastro-esophageal reflux disease without esophagitis; I11.0 Hypertensive heart disease with heart failure; E11.65 Type 2 diabetes mellitus with hyperglycemia; F41.1 Generalized anxiety disorder; I48.91 Unspecified atrial fibrillation; J44.9 Chronic obstructive pulmonary disease, unspecified; Z68.30 Body mass index [BMI] 30.0-30.9, adult